=== PATIENT | female | born 1940 | race Caucasian/White ===

== ENCOUNTER → 2017-07-31 12:23 | Outpatient (CLI) | payer MEDICARE, OTHER, SELFPAY ==
--- NOTE | 2017-07-31 | DI.MG.S_ITS ---
UNILATERAL LEFT DIGITAL DIAGNOSTIC MAMMOGRAM POST-NEEDLE BIOPSY: 07/31/2017 CLINICAL: Post clip placement. Comparison is made to exams dated: 07/14/2017 mammogram, 06/26/2017 mammogram, and 05/01/2016 mammogram - [facility]. There are scattered fibroglandular elements in the left breast. There is a biopsy clip in the left breast at 4 o'clock next to the mass with calcifications. IMPRESSION: POST PROCEDURE MAMMOGRAM FOR MARKER PLACEMENT Biopsy clip in expected position. This exam was interpreted at Station ID: [id number]. NOTE: For mammograms, a report in lay terms will be sent to the patient. Approximately 15% of breast malignancies will not be visualized mammographically. In the management of a palpable breast mass, a negative mammogram must not discourage biopsy of a clinically suspicious lesion. Electronically Signed By: Crys David M.D. fx/:07/31/2017 13:46:14 copy to: Brenden OLIVEIRA BI-RADS Category Post-procedure mammogram for marker placement
--- NOTE | 2017-07-31 | PATH_ITS ---
[facility] Accession Number: [id number] . 01 Material submitted: . LT BREAST 4:00 3CM . 02 Diagnosis: Breast Mass at 4 o'clock, 3 cm From Nipple, Left, Needle Core Biopsy Not Otherwise Specified: Fragments of papillary lesion, consistent with benign intraductal papilloma. No atypia or invasive tumor identified. Please see comment. . MRV/08/05/2017 . 02 Comment: Surgical extirpation is recommended for complete evaluation. . 02 Electronically signed: . Brenda Garcias MD, Pathologist NPI- [id number] . 01 Gross description: . Received in formalin, labeled BX breast, are multiple fragments of fibrofatty tissue (2.0 x 1.5 x 0.3 cm in aggregate). Entirely submitted in cassette A1. NOTE: Approximate total fixation time in formalin - 55 hours 30 minutes calculated using a collection date of 07/31/2017 with no collection time given. ([id number]) /FRR . 02 Pathologist provided ICD-10: N64.9 . 02 CPT . 476448 Performed at: 01 [facility] [address], [place], [place] [id number] MD Ricco Barraza MD Phone: [phone] Performed at: 02 [facility] [address] [place], [place] [id number] MD Robert Castro MD Phone: [phone]
--- NOTE | 2017-07-31 12:25 | DI.US.S_ITS ---
ULTRASOUND GUIDED BIOPSY LEFT BREAST USING VACUUM DEVICE WITH POST MAMMOGRAPHIC AND ULTRASOUND IMAGIN07/31/2017 CLINICAL: Left breast mass. PATIENT CONSENT: Risks (minor bleeding, infection, vasovagal reaction and repeat procedure), benefits and alternatives were explained to the patient and written informed consent was obtained. Correlation is made to exams dated: 07/14/2017 ultrasound, 07/14/2017 mammogram, 06/26/2017 mammogram, and 05/01/2016 mammogram - [facility]. An ultrasound guided biopsy using real-time ultrasound was performed for the oval mass located in the left breast at 4 o'clock middle depth. This was described on the previous ultrasound report. The skin was prepped in the usual manner. Local anesthetic was administered to the access site. The abnormality was approached from the lateral aspect. A 13 gauge biopsy needle was placed adjacent to the abnormality under ultrasound guidance. Once the needle was documented to be in the correct location, five specimens were obtained using the Mammotome biopsy system. Post procedure mammographic and ultrasound imaging demonstrates the clip at the targeted area. The specimens were sent to the laboratory for pathological analysis. IMPRESSION: ULTRASOUND GUIDED BIOPSY BENIGN Ultrasound guided biopsy of the mass in the left breast middle depth was successful. Pathology demonstrates a papilloma. Although this finding is concordant with the ultrasound finding there are calcifications seen mammographically extend well beyond the area of US guided biopsy. Recommend surgical excision of this area. Findings discussed with JOYCELYN Singh from the office of Dr. Ramirez via telephone ([phone]) at 10:50 on 08/08/2017. This exam was interpreted at Station ID: [id number]. Crys Villalta M.D. fx,cj/:08/08/2017 11:00:05 copy to: Brenden Wallace
== END ==
PROVIDERS: Family Provider Family Medicine; PCP Family Medicine; Visit Provider Obstetrics & Gynecology
DX: R92.8 Other abnormal and inconclusive findings on diagnostic imaging of breast (principal); N63.20 Unspecified lump in the left breast, unspecified quadrant
CPT/HCPCS: 19083; 77065; 88305

== ENCOUNTER 2017-09-25 07:27 | Day surgery (SDC) | payer MEDICARE, OTHER, SELFPAY ==
[2017-09-22 14:48] VITALS: BMI 32.3
[2017-09-25] VITALS (8 sets, daily range): BP systolic 134–159; BP diastolic 76–93; PULSE 63–76; RESP 10–16; TEMP 36–36.3; O2SAT 95–98; BMI 33.1
--- NOTE | 2017-09-25 | DI.MG.S_ITS ---
PROCEDURE: MM SURGICAL SPECIMAN LT INDICATIONS: LEFT BREAST PAPILLOMA TECHNIQUE: Intraoperative film of the breast surgical specimen acquired. COMPARISON: [facility], , MM DIAGNOSTIC MAMMO UNILAT LT2D, 09/25/2017, 9:13. FINDINGS: Tip of the localizing wire is present. Also visualized within the specimen is the nearby biopsy clip and the mass being targeted. IMPRESSION: The targeted lesion is within the surgical specimen. Dictated by: Crys David M.D. on 09/25/2017 at 11:58 Approved by: Crys David M.D. on 09/25/2017 at 12:00
--- NOTE | 2017-09-25 | DI.MG.S_ITS ---
UNILATERAL LEFT DIGITAL DIAGNOSTIC MAMMOGRAM: 09/25/2017 CLINICAL: Left breast papiloma. Post wire placement. Comparison is made to exams dated: 07/31/2017 mammogram, 07/14/2017 mammogram, and 06/26/2017 mammogram - [facility]. There are scattered fibroglandular elements in the left breast. There is a localization wire next to the mass and biopsy marker in the left breast at 4 o'clock middle depth. IMPRESSION: The localization wire is next to the targeted mass and biopsy marker. This exam was interpreted at Station ID: [id number]. NOTE: For mammograms, a report in lay terms will be sent to the patient. Approximately 15% of breast malignancies will not be visualized mammographically. In the management of a palpable breast mass, a negative mammogram must not discourage biopsy of a clinically suspicious lesion. Electronically Signed By: Crys David M.D. fx/:09/26/2017 08:13:37 Entry: - 09/26/2017 08:13:37 copy to: Brenden OLIVEIRA BI-RADS Category n/a
--- NOTE | 2017-09-25 | PATH_ITS ---
[facility] Accession Number: [id number] . 01 Material submitted: . PART A: LEFT BREAST PART B: LEFT BREAST . 02 Diagnosis: A. 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 Tumor size measures up to 1 cm in maximum dimension. Excisional margins widely free of neoplasm. . B. Additional Left Brest Tissue: Benign breast tissue, negative for evidence of neoplasm. MRV/09/29/2017 . 02 Electronically signed: . Esteban Caruso MD, Pathologist NPI- [id number] . 01 Gross description: . (A) Received in formalin , labeled left breast, long stitch medial, short anterior, is a piece of breast tissue (1.5 cm AP, 2.7 cm SI, 5.0 cm ML) with no overlying skin. The specimen is oriented with two black sutures (long-medial, short-anterior). A localization wire enters the central anterolateral aspect and exits the central posterior aspect. The specimen is serially sectioned ML into 14 slices with the medial and lateral resection margins as slices #1 and 14, respectively. The breast tissue is fatty and contains a wilde-yellow, firm, irregular mass (2.8 x 0.8 x 0.6 cm) within slices #6-#13. The mass is 0.4 cm from the anterior, 0.2 cm from the posterior, 1.1 cm from the superior, 0.4 cm from the inferior, 1.7 cm from the medial, and 0.5 cm from the lateral resection margins. Slices #2-#5 are focally fibrous. No biopsy marker is identified. Ink code: Purple - anterior; yellow - posterior; black - superior; orange - inferior; green - medial; blue - lateral. Section code: (A1) medial resection margin, perpendicularly sectioned; (A2) slice #2; (A3) slice #3; (A4) slice #4; (A5) slice #5, tissue adjacent to mass; (A6) slice #6; (A7) slice #7; (A8) slice #8; (A9) slice #9; (A10) slice #10; (A11) slice #11; (A12) slice #12; (A13) slice #13; (A14) slice lateral resection margin, tissue adjacent to mass, perpendicularly sectioned. Specimen entirely submitted. (B) Received in formalin, labeled left breast medial wall, stitch specimen side, is a piece of breast tissue (5.5 x 2.5 x 0.6 cm) with no overlying skin. A two-tailed black suture indicates the specimen side. No localization wire is present. The breast tissue is fibrofatty with no nodules, masses, lesions, or scirrhous areas identified. The side with the suture is inked black and the opposite side is inked orange. Serially sectioned and entirely submitted in cassettes B1-B4. . Note: Approximate total fixation time in formalin for both specimens - 67 hours and 30 minutes calculated using a collection date of 09/25/2017 with no collection time given. ([id number]) /FRR . 02 Pathologist provided ICD-10: D24.2 . 02 CPT . 109792, 431877 Performed at: 01 [facility] [address] [id number] MD Ricco Barraza MD Phone: [phone] Performed at: 02 [facility] [address] [place], [place] [id number] MD Robert Castro MD Phone: [phone]
--- NOTE | 2017-09-25 | DI.US.S_ITS ---
ULTRASOUND GUIDED NEEDLE LOCALIZATION LEFT BREAST: 09/25/2017 CLINICAL: Pre-op wire localization. Correlation is made to exams dated: 07/31/2017 mammogram, 07/31/2017 ultrasound biopsy, 07/14/2017 ultrasound, 07/14/2017 mammogram, 06/26/2017 mammogram, and 05/01/2016 mammogram - [facility]. A needle localization using ultrasound guidance was performed for the mass located in the left breast at 4 o'clock middle depth. The skin was prepped in the usual manner. Local anesthetic was administered to the access site. The localization needle was approached from the lateral aspect. A wire was inserted through the needle into the targeted area under ultrasound guidance. Post placement imaging demonstrates the localization wire passes the targeted area. IMPRESSION: NEEDLE LOCALIZATION Wire localization for the mass in the left breast at 4 o'clock was successful. This exam was interpreted at Station ID: [id number]. Crys David M.D. fx/:09/25/2017 11:03:43 copy to: Brenden Wallace
--- NOTE | 2017-09-25 09:26 | SUR.PREOP ---
PT RETURNED FROM RADIOLOGY AT 0920. PT IN STABLE CONDITION. PT TRANSFERED SELF BACK INTO STRETCHER WITHOUT ANY DIFFICULTLY. PT BROUGHT BACK TO BEDSIDE AND PT CONVERSING WITH SPOUSE. BED IN LOWEST POSITION AND CALL LIGHT GIVEN TO PT.
[2017-09-25] MEDS: LACTATED RINGERS 1,000 ML 100 ML IV (09:28)
--- NOTE | 2017-09-25 11:01 | PM.PREOP ---
Pre-operative Note Interval Note Pre-op Check: Yes History & Physical Reviewed by Physician and Yes Exam Performed Changes: Yes H&P completed within 30 days and has changed as indicated here:: Needle 0 perform. The tip is well beyond the specimen area.
[2017-09-25] MEDS: CEFAZOLIN 2 GM/100 ML FROZ.PIGGY IV (11:06)
--- NOTE | 2017-09-25 11:31 | SUR.OPER ---
Supine on padded OR bed, head on gel donut on foam block, arms secured on padded arm boards at <90 degrees abduction, legs uncrossed, safety belt at thigh, tape over blanket over lower legs.
[2017-09-25] MEDS: BUPIVACAINE 0.5% (PF) VIAL 30 ML INJ (11:41)
--- NOTE | 2017-09-25 12:24 | P.OP_ITS ---
Operative Date/Time/Diagnoses Date of procedure: 09/25/17 Time of procedure: 12:19 Pre-op diagnosis: Mass in left breast Post-op diagnosis: same Procedure & Clinicians Procedure: Needle localization and lumpectomy Same procedure as scheduled: Yes Indications: Post biopsy he consistent with a papilloma. Recommendation made for removal of the remaining mass to ensure no other lesion is present. Surgeon: Silvano Wang Click Yes if Unassisted: Yes Anesthesia Type: General Operative Notes Findings: Specimen contained the mass and the clip Closure Type: primary Specimen(s): other (Needle localization and an additional medial wall from anterior to posterior) Implants & Drains: None Estimated Blood Loss (mL): 10 Blood products transfused: none Procedure in detail: Patient was placed supine on the operating room table underwent general LMA anesthesia. She was prepped and draped in the usual fashion. Care was taken not to move wire. Wire was really in suboptimal location. I made an incision between where the mass should be based on mammography and the needle insertion site. Was carried into the subcu in the needle was delivered into the wound. Unfortunately because of the curve in the needle and the fact that it went well beyond the lesion I principally used palpation as a guide with visualization to make sure was no air near the needle to remove the tissue. I did not attempt to go to the end of the needle because the needle tip was way beyond this targeted specimen. I excised the lesion and submitted it for pathology. The clip and the mass were in the specimen. I took out an additional piece of tissue in the medial wall because if there was any place I was close it was there. This specimen included portion of the anterior wall down to the posterior wall encompassing the medial aspect. Both specimens were marked with sutures for orientation. Local anesthetic was infiltrated into the wall of the biopsy site. The cavity was closed with interrupted 3 0 Polysorb. The skin was closed running for Polysorb subcuticular stitch and Steri -Strips. Dressing was applied the patient was awakened and extubated and taken to recovery room good condition. Condition: stable Disposition: PACU Plan for aftercare: Follow-up in office
== END 2017-09-25 13:34 | disposition home or self-care (01) ==
PROVIDERS: PCP Family Medicine; Visit Provider Specialist
PROC: (CPT 19301; principal; 2017-09-25 10:45)
DX: D24.2 Benign neoplasm of left breast (principal); I10 Essential (primary) hypertension
CPT/HCPCS: 19301; 19285; 76098; 77065; J0690; J1100; J2405; J2704; J3010

== ENCOUNTER 2017-11-18 06:46 | Day surgery (SDC) | payer MEDICARE, OTHER, SELFPAY ==
--- NOTE | 2017-11-18 | PATH_ITS ---
[facility] Accession Number: [id number] . 01 Material submitted: . PART A: ASCENDING COLON POLYP PART B: COLON POLYP AT 30CM . 02 Diagnosis: A. Biopsy Ascending Colon Polyp: Tubular adenoma involving single biopsy fragment. . B. Biopsy Colon Polyp at 30 cm: Polypoid-shaped fragment of normal appearing colon mucosa consistent with mucosal polypoid redundancy. Negative for evidence of neoplasm and/or hyperplasia on multiple sections. MRV/11/19/2017 . 02 Electronically signed: . Esteban Caruso MD, Pathologist NPI- [id number] . 01 Gross description: . Received two formalin-filled containers, both labeled with the patient's name: . A. In a container labeled descending colon polyp, are two 0.1-0.4 cm portions of tissue, entirely submitted in cassette A. B. In a container labeled colon polyp at 30 cm, the specimen consists of a 0.2 cm portion of tissue, entirely submitted in cassette B. ([id number]) /FRR . 02 Pathologist provided ICD-10: D12.2 . 02 CPT . 760220, 171183 Specimen Comment: A duplicate report has been generated due to demographic updates. Performed at: 01 [facility] [address] [facility], [place], [place] [id number] MD Ricco Barraza MD Phone: [phone] Performed at: 02 [facility] [address] [place], [place] [id number] MD Robert Castro MD Phone: [phone]
[2017-11-18 07:10] VITALS: BP 135/88; PULSE 75; RESP 18; TEMP 36.2; O2SAT 97; BMI 32.9
--- NOTE | 2017-11-18 08:09 | PM.HP.1 ---
History of Present Illness Date Patient Seen: 11/18/17 Time Patient Seen: 08:09 Chief complaint: [id number] SCREENING COLONOSCOPY Narrative: Patient is here for screening colonoscopy. She was seen in the office in late September. Patient History Medical History Colorectal polyp detected on colonoscopy (Acute) Environmental allergies (Acute) Papilloma of breast (Acute) Asthma (Chronic) Hayfever (Chronic) Hyperlipidemia (Chronic) Hypertension (Chronic) Migraines (Chronic) Pancreatitis (Resolved) Surgical History History of cholecystectomy (Acute) Hx of breast biopsy (Acute) History of tonsillectomy (Resolved 1961) History of total hip replacement (Resolved 2000) History of total hip replacement (Resolved 2004) Family & Social History Family History: Reviewed 11/18/17 by Silvano Wang MD Social History: household members spouse Tobacco & Substance use: Smoking Status Never smoker Meds Home Medications Medication Instructions Recorded Confirmed Type ascorbic acid (vitamin C) 500 mg 500 mg PO DAILY cap 09/15/17 11/18/17 History capsule Allergies Allergy/AdvReac Type Severity Reaction Status Date / Time adhesive [ADHESIVE] Allergy Mild Rash Verified 09/25/17 08:01 bacitracin [BACITRACIN] Allergy Mild itchy red Verified 09/25/17 08:01 rash latex [LATEX] Allergy Mild RASH Verified 09/25/17 08:01 polymyxin B Allergy Mild itchy red Verified 09/25/17 08:01 [From NEOSPORIN rash ([id number])] neomycin [NEOMYCIN] Allergy Unknown CONTACT Verified 09/25/17 08:01 DERMATITIS hydrocodone [HYDROCODONE] AdvReac Unknown HALLUCINATI Verified 09/25/17 08:01 ON narcotics AdvReac Mild Sensitive, Uncoded 09/25/17 08:01 twilight, dreams about sounds she hears Review of Systems Review of Systems All systems reviewed & are unremarkable except as noted in HPI and below Exam Vital Signs (past 8 hours): - 11/18/17 07:10 Temperature 97.2 F L Pulse Rate 75 Respiratory Rate 18 Blood Pressure 135/88 Pulse Oximetry 97 Oxygen Delivery Method Room Air Narrative Exam Narrative: Operative no apparent distress. Lungs are clear to auscultation. No rales rhonchi. Heart regular rate and rhythm without murmur gallop. Abdomen is soft nontender without mass. The patient is alert and oriented x3. Assessment & Plan Plan: Assessment/Plan Narrative: Here for screening colonoscopy. I have discussed the procedure and the rationale with the patient including risks of bleeding, perforation which would necessitate a major operation, failure to find remove all lesions and the potential to tattoo. They appeared to understand and wished to proceed.
--- NOTE | 2017-11-18 08:10 | PM.PREOP ---
Pre-operative Note Interval Note Pre-op Check: Yes History & Physical exam performed today by Physician Changes: No ASA Class (for procedural sedation): I
[2017-11-18] MEDS: MIDAZOLAM 5 MG/5 ML VIAL IV (08:37)
[2017-11-18] MEDS: fentaNYL 250 MCG/5 ML INJ IV (08:38)
[2017-11-18 08:45] VITALS: BP 118/72; PULSE 58; RESP 17; TEMP 36.4; O2SAT 99
--- NOTE | 2017-11-18 08:50 | PM.OP.ENDO ---
Operative Date/Time/Diagnoses Date of procedure: 11/18/17 Time of procedure: 08:50 Pre-op diagnosis: Screening exam. Last exam was 6 years ago. History of polyps. Post-op diagnosis: same (Internal and external hemorrhoids. Sigmoid diverticulosis. Two small polyps.) Procedure & Clinicians Study performed: Colonoscopy with cold biopsy Same procedure as scheduled: Yes Indications: Screening Surgeon: Silvano Wang Procedure Notes SCOAP/Timeout: Performed Procedure in detail: The patient was placed in the left lateral decubitus position and underwent IV sedation directed by the surgeon consisting of fentanyl and Versed. Digital exam was remarkable for large external hemorrhoidal tags. The scope was inserted and advanced through the rectum into the sigmoid, descending, transverse, and ascending colon.[The sigmoid was noted to have fairly large in numerous diverticuli.]. The cecum was reached identified by the ileocecal valve and the appendiceal opening. The ileocecal valve was[successfully] cannulated. The terminal ileum was normal in appearance. The scope was gradually brought out. In the ascending colon there was a small polyp which was biopsied to complete removal. Another small Polyp was found at[30 cm from the anal verge and was removed]. The scope ultimately was retroflexed in the rectum. The appearance was[notable for internal hemorrhoids without ulceration]. The scope was removed and the patient tolerated the procedure well Scope withdrawal time: 10 min Sedation minutes: 25 Findings: diverticulosis (Sigmoid), internal hemorrhoids (With external hemorrhoids) and polyp (Ascending colon and 30 cm from the anal verge) Specimen(s): other (Polyps) Recommendations: Colonscopy in 5 years Follow up: as needed Disposition: PACU
[2017-11-18 08:51] VITALS: BP 131/79; PULSE 63; RESP 16; O2SAT 98
[2017-11-18] MEDS: SODIUM CHLORIDE 0.9% 1,000 ML 200 ML IV (08:55)
[2017-11-18 08:56] VITALS: BP 122/69; PULSE 62; RESP 16; O2SAT 96
[2017-11-18 09:18] VITALS: BP 127/76; PULSE 56; RESP 16; O2SAT 94
== END 2017-11-18 09:20 | disposition home or self-care (01) ==
PROVIDERS: PCP Family Medicine; Visit Provider Specialist
PROC: 0DJD8ZZ Inspection of Lower Intestinal Tract, Via Natural or Artificial Opening Endoscopic (ICD-10-PCS; CPT 45378; principal; 2017-11-18 07:45)
DX: Z86.010 Personal history of colon polyps (principal); E78.5 Hyperlipidemia, unspecified; I10 Essential (primary) hypertension; J45.909 Unspecified asthma, uncomplicated; K57.30 Diverticulosis of large intestine without perforation or abscess without bleeding; K64.8 Other hemorrhoids; K64.4 Residual hemorrhoidal skin tags; D12.2 Benign neoplasm of ascending colon; D12.5 Benign neoplasm of sigmoid colon
CPT/HCPCS: 45380; 88305; 99152; 99153; J2250; J3010

== ENCOUNTER → 2018-06-29 13:38 | Outpatient (CLI) | payer MEDICARE, OTHER, SELFPAY ==
--- NOTE | 2018-06-29 | DI.MG.S_ITS ---
BILATERAL DIGITAL SCREENING MAMMOGRAM 3D/2D WITH CAD: 06/29/2018 CLINICAL: Routine screening. Comparison is made to exams dated: 06/26/2017 mammogram, 09/29/2014 mammogram, and 02/22/2013 mammogram - [facility]. There are scattered fibroglandular elements in both breasts. Current study was also evaluated with a Computer Aided Detection (CAD) system. There are benign post operative findings in the left breast. No significant masses, calcifications, or other findings are seen in either breast. There has been no significant interval change. IMPRESSION: There is no mammographic evidence of malignancy. A 1 year screening mammogram is recommended. This exam was interpreted at Station ID: [id number]. NOTE: For mammograms, a report in lay terms will be sent to the patient. Approximately 15% of breast malignancies will not be visualized mammographically. In the management of a palpable breast mass, a negative mammogram must not discourage biopsy of a clinically suspicious lesion. Electronically Signed By: Sarah vivas/leeanne:06/29/2018 15:11:48 copy to: Brenden Wallace letter sent: Normal Exam ACR BI-RADS Category 2: Benign Finding(s) 3342F
== END ==
PROVIDERS: PCP Student in an Organized Health Care Education/Training Program; Visit Provider Obstetrics & Gynecology
DX: Z12.31 Encounter for screening mammogram for malignant neoplasm of breast (principal)
CPT/HCPCS: 77063; 77067

== ENCOUNTER → 2019-01-20 13:45 | Outpatient (CLI) | payer MEDICARE, OTHER, SELFPAY ==
[2019-01-20 15:16] LABS: Alanine Aminotransferase 19 IU/L (<35); Albumin 4.5 g/dL (3.5-5.0); Albumin Globulin Ratio 1.7 (1.0-2.8); Alkaline Phosphatase 62 U/L (38-126); Aspartate Aminotransferase 25 IU/L (14-36); BUN Creatinine Ratio 23.3 (6-22); Bilirubin Total 0.5 mg/dL (0.2-1.3); Blood Urea Nitrogen 21 mg/dL (7-17); Calcium 9.5 mg/dL (8.4-10.2); Carbon Dioxide 27 mmol/L (22-32); Chloride 103 mmol/L (98-107); Estimated Glomerular Filt Rate > 60.0 mL/min (>60); Globulin 2.7 g/dL (1.7-4.1); Glucose 101 mg/dL (80-110); HEMOLYSIS < 15 (0-50); Potassium 4.2 mmol/L (3.4-5.1); Sodium 142 mmol/L (137-145); Total Protein 7.2 g/dL (6.3-8.2)
[2019-01-20 15:35] LABS: B Type Natriuretic Peptide < 100 (<100)
[2019-01-20 15:36] LABS: Vitamin D 25 Hydroxy (D3) 38.8 ng/mL (30.0-100.0)
== END ==
PROVIDERS: PCP Student in an Organized Health Care Education/Training Program; Visit Provider Student in an Organized Health Care Education/Training Program
DX: E55.9 Vitamin D deficiency, unspecified (principal); I10 Essential (primary) hypertension; K76.89 Other specified diseases of liver; R60.9 Edema, unspecified; I50.21 Acute systolic (congestive) heart failure
CPT/HCPCS: 36415; 80053; 82306; 83880

== ENCOUNTER → 2019-01-21 13:23 | Outpatient (CLI) | payer MEDICARE, OTHER, SELFPAY | PROVIDERS: PCP Student in an Organized Health Care Education/Training Program; Visit Provider Student in an Organized Health Care Education/Training Program | DX: Z13.820 Encounter for screening for osteoporosis (principal); Z78.0 Asymptomatic menopausal state; M85.88 Other specified disorders of bone density and structure, other site | CPT/HCPCS: 77080; 77081 ==

== ENCOUNTER → 2019-03-11 17:31 | Outpatient (CLI) | payer MEDICARE, OTHER, SELFPAY ==
--- NOTE | 2019-03-11 17:37 | DI.MRI.S_ITS ---
PROCEDURE: MR ABDOME PELVIS WWO CON INDICATIONS: evaluate pancreatic and ovarian masses TECHNIQUE: Coronal HASTE, axial 2D FLASH in- and [id number]; axial breath-hold T2 FSE; dynamic axial VIBE during IV gadolinium administration; postgadolinium coronal VIBE or 2D FLASH with fat saturation from the hepatic dome to the iliac crests. COMPARISON: Outside Facility, RG, CT ABDOMEN/PELVIS WITH CONTRAST, 03/04/2019, 11:11. This dictation was delayed, awaiting outside prior images, which have now arrived. FINDINGS: Image quality: Excellent. Lung bases: No significant abnormalities can be seen at the lung bases. Heart size is within normal limits. No significant hiatal hernia. Solid organs: Numerous prominent simple appearing, nonenhancing cysts are seen of the left kidney, including a 6.1 cm cyst inferiorly and a 5 cm cyst laterally. No definite cysts are seen of the right kidney. There is no hydronephrosis. There is a nonenhancing ovoid cyst along the lateral aspect of the liver that measures 2.5 cm craniocaudally. No enhancement seen of this lesion. The spleen is unremarkable. No adrenal nodules are seen. At the tail of the pancreas, there is a lesion seen that measures 2.3 x 1.4 cm, as on series 5 image 57. This lesion demonstrates heterogeneous increased signal on T2-weighted imaging. This lesion demonstrates mild internal enhancement. The pancreas otherwise demonstrate an unremarkable appearance. No dilatation of the pancreatic duct can be seen. The gallbladder has been removed. No biliary dilatation is seen. Nodes and vessels: The IVC and aorta demonstrate normal caliber. No enlarged retroperitoneal lymph nodes are seen. Bowel and peritoneum: Diverticulosis is seen, without findings of active diverticulitis. No dilated loops of small bowel are seen. No free fluid can be seen. Pelvis: There is visualization of a right ovarian cystic lesion seen that measures up to 3 cm. No complicating features can be seen. No additional adnexal masses are seen. The uterus demonstrates an atrophic appearance and is considered to be normal for age. Bones and soft tissues: Age-appropriate bony degenerative changes are seen. Mild levoconvex scoliotic curvature is noted. Bilateral hip arthroplasty hardware is seen, with associated susceptibility artifact. IMPRESSION: At the tail of pancreas, there is a 2.3 cm lesion seen that demonstrates mild internal enhancement. Differential diagnosis includes neoplasm. For further evaluation, please consider a dedicated pancreas protocol CT, performed without and with contrast. There is a 3 cm left ovarian cyst seen, without complicating features. 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 Attention should be paid to this focus on any future followup studies. Please consider a gynecological protocol referral to discuss elective removal. Numerous prominent simple appearing left renal cysts. Incidental note is made of: Cholecystectomy Levoconvex scoliotic curvature Diverticulosis is seen, without findings of active diverticulitis. Bilateral hip arthroplasty Dictated by: Alexander Cook M.D. on 03/12/2019 at 16:33 Approved by: Alexander Cook M.D. on 03/12/2019 at 16:44
== END ==
PROVIDERS: Family Provider Student in an Organized Health Care Education/Training Program; PCP Student in an Organized Health Care Education/Training Program; Visit Provider Student in an Organized Health Care Education/Training Program
DX: K86.89 Other specified diseases of pancreas (principal); N83.8 Other noninflammatory disorders of ovary, fallopian tube and broad ligament; N28.1 Cyst of kidney, acquired; K76.89 Other specified diseases of liver; K57.90 Diverticulosis of intestine, part unspecified, without perforation or abscess without bleeding; M41.9 Scoliosis, unspecified; Z90.49 Acquired absence of other specified parts of digestive tract; Z96.643 Presence of artificial hip joint, bilateral
CPT/HCPCS: 72197; A9579

== ENCOUNTER → 2019-03-31 12:08 | Outpatient (CLI) | payer MEDICARE, OTHER, SELFPAY ==
[2019-03-31 14:04] LABS: Cancer Antigen 125 11 U/mL (0-35); Carcinoembryonic Antigen 0.7 ng/mL (0.1-3.0)
[2019-04-01 11:31] LABS: Cancer (Carbohydrate) Ag 19-9 5 U/mL (< 34)
[2019-04-03 15:29] LABS: Human HE4 Antigen 66 pmol/L
== END ==
PROVIDERS: Obstetrics & Gynecology; PCP Student in an Organized Health Care Education/Training Program; Visit Provider Student in an Organized Health Care Education/Training Program
DX: N94.89 Other specified conditions associated with female genital organs and menstrual cycle (principal); R19.09 Other intra-abdominal and pelvic swelling, mass and lump; D37.8 Neoplasm of uncertain behavior of other specified digestive organs
CPT/HCPCS: 36415; 82378; 86301; 86304; 86305

== ENCOUNTER → 2019-04-09 10:51 | Outpatient (CLI) | payer MEDICARE, OTHER, SELFPAY ==
[2019-04-09 13:25] LABS: Lipase 192 U/L (23-300)
== END ==
PROVIDERS: PCP Student in an Organized Health Care Education/Training Program; Visit Provider Physician Assistant
DX: K85.90 Acute pancreatitis without necrosis or infection, unspecified (principal)
CPT/HCPCS: 36415; 83690

== ENCOUNTER → 2019-05-31 10:26 | Outpatient (CLI) | payer MEDICARE, OTHER, SELFPAY ==
--- NOTE | 2019-05-31 | DI.US.S_ITS ---
PROCEDURE: US PELVIC COMPLETE INDICATIONS: RIGHT OVARIAN CYST TECHNIQUE: Real-time scanning was performed of the pelvic organs, with image documentation. Additional endovaginal scanning was necessary due to incomplete visualization of the adnexal and endometrial structures by transabdominal scanning. COMPARISON: [facility], US, US PELVIC COMPLETE, 03/31/2019, 11:55. Outside Facility, RG, CT ABDOMEN/PELVIS WITH CONTRAST, 03/04/2019, 11:11. FINDINGS: Transabdominal scanning: Limited scanning through the kidneys shows no hydronephrosis. Multicystic left kidney redemonstrated similar to prior CT scan with largest cyst measuring up to 5.3 cm. No pathologic free abdominal or pelvic fluid. Endovaginal scanning: Uterus: Uterus is normal in size at 4.9 x 2.2 x 4.2 cm. The endometrium measures 10.2 mm in combined thickness and is diffusely heterogeneous and hyperemic. Ovaries: Simple right ovarian cyst redemonstrated measuring 3.4 x 2.2 x 2.5 cm. Left ovary is normal measuring 1.4 x 1.1 x 0.9 cm. IMPRESSION: 1. Abnormal appearance of the endometrial complex which is thickened, heterogeneous and hyperemic. Endometrial biopsy is recommended as underlying neoplastic process including endometrial carcinoma cannot be excluded. 2. Simple 3.4 cm right ovarian cyst. Annual sonographic surveillance recommended. 3. Multicystic left kidney redemonstrated. Dictated by: Baudilio MALAVE Interpreted: Genny Morel MD on 05/31/2019 at 12:59 Approved by: Genny Morel M.D. on 06/02/2019 at 14:25
== END ==
PROVIDERS: PCP Student in an Organized Health Care Education/Training Program; Referring Provider Obstetrics & Gynecology Gynecologic Oncology; Visit Provider Obstetrics & Gynecology Gynecologic Oncology
DX: N83.201 Unspecified ovarian cyst, right side (principal); R93.89 Abnormal findings on diagnostic imaging of other specified body structures; N28.1 Cyst of kidney, acquired
CPT/HCPCS: 76830; 76856

== ENCOUNTER → 2019-08-16 08:54 | Outpatient (CLI) | payer MEDICARE, OTHER, SELFPAY ==
[2019-08-16 10:18] LABS: Alanine Aminotransferase 15 IU/L (<35); Albumin 4.1 g/dL (3.5-5.0); Albumin Globulin Ratio 1.5 (1.0-2.8); Alkaline Phosphatase 56 U/L (38-126); Aspartate Aminotransferase 21 IU/L (14-36); Bilirubin Total 0.5 mg/dL (0.2-1.3); Blood Urea Nitrogen 22 mg/dL (7-17); Calcium 9.5 mg/dL (8.4-10.2); Carbon Dioxide 26 mmol/L (22-32); Chloride 107 mmol/L (98-107); Globulin 2.8 g/dL (1.7-4.1); Glucose 100 mg/dL (80-110); HEMOLYSIS < 15 (0-50); Potassium 4.1 mmol/L (3.4-5.1); Sodium 141 mmol/L (137-145); Total Protein 6.9 g/dL (6.3-8.2)
== END ==
PROVIDERS: PCP Student in an Organized Health Care Education/Training Program; Referring Provider Internal Medicine Gastroenterology; Visit Provider Internal Medicine Gastroenterology
DX: K86.9 Disease of pancreas, unspecified (principal)
CPT/HCPCS: 36415; 80053

== ENCOUNTER → 2019-09-06 10:34 | Outpatient (CLI) | payer MEDICARE, OTHER, SELFPAY ==
--- NOTE | 2019-09-06 | DI.CT.S_ITS ---
PROCEDURE: CT ABDOMEN WO/W CON INDICATIONS: Cyst of kidney, acquired TECHNIQUE: Noncontrast 3 mm thick sections acquired through the pancreas. After the administration of intravenous contrast, 3 mm thick pancreatic-phase images acquired from the diaphragm to the iliac crests. 3 mm thick coronal and sagittal reformats were performed. For radiation dose reduction, the following was used: automated exposure control, adjustment of mA and/or kV according to patient size. COMPARISON: Outside Facility, , CT ABDOMEN/PELVIS WITH CONTRAST, 03/04/2019, 11:11. [facility], CT, ABDOMEN WITH CONTRAST, 04/10/2016, 10:14. [facility], CT, ABDOMEN/PELVIS WITH CONTRAST, 04/12/2014, 18:54. FINDINGS: Image quality: Excellent. Lung bases: Lung bases are clear. Heart size is normal. Pancreas: A 2.4 cm exophytic cystic mass is present at the distal tail of the pancreas. There are no associated calcifications. There are likely septations, but no significantly enhancing components are identified. There is questionable connection to the main pancreatic duct. The pancreatic duct is not dilated. The remainder the pancreas appears normal. Other solid organs: Liver is normal in size and enhancement. A subcapsular simple cyst is present in the right hepatic lobe. Gallbladder is surgically absent. Biliary system is non dilated. Spleen is normal in size and enhancement. No adrenal nodules. The right kidney is normal. The left kidney contains numerous partially exophytic cyst throughout the parenchyma. One of the lower pole cyst demonstrates a small focus of wall calcification. No solid masses. No hydronephrosis. Peritoneum and bowel: Increased quantity of retained solid stool in the visible loops of colon. Unenhanced bowel loops demonstrate normal wall thickness and caliber. No free fluid or air. Nodes and vessels: No retroperitoneal or mesenteric adenopathy by size criteria. Aorta and inferior vena cava are normal in size. Mild aortic calcification Bones: No suspicious bony lesions. Degenerative disc height loss at L2-3. No vertebral body compression fractures. Miscellaneous: No ventral hernias. IMPRESSION: 1. 2.4 cm septated multicystic lesion of the tail of the pancreas has slightly increased in size since April of 2016 and is most likely a residual pseudocyst. Differential diagnosis includes serous or mucinous cystadenoma, or side branch IPMN. Cystic adenocarcinoma is felt much less likely. Followup cross-sectional imaging, CT or MRI in 6 months to document stability is recommended. 2. Multiple left renal cysts. 3. Hepatic cyst. Dictated by: Beth Delgado M.D. on 09/06/2019 at 17:10 Approved by: Beth Delgado M.D. on 09/06/2019 at 17:27
[2019-09-06 11:24] LABS: Alanine Aminotransferase 16 IU/L (<35); Albumin 4.3 g/dL (3.5-5.0); Albumin Globulin Ratio 1.7 (1.0-2.8); Alkaline Phosphatase 60 U/L (38-126); Aspartate Aminotransferase 22 IU/L (14-36); BUN Creatinine Ratio 23.9 (6-22); Bilirubin Total 0.6 mg/dL (0.2-1.3); Blood Urea Nitrogen 21 mg/dL (7-17); Calcium 9.8 mg/dL (8.4-10.2); Carbon Dioxide 22 mmol/L (22-32); Chloride 109 mmol/L (98-107); Estimated Glomerular Filt Rate > 60.0 mL/min (>60); Globulin 2.6 g/dL (1.7-4.1); Glucose 104 mg/dL (80-110); HEMOLYSIS < 15 (0-50); Potassium 4.2 mmol/L (3.4-5.1); Sodium 139 mmol/L (137-145); Total Protein 6.9 g/dL (6.3-8.2)
== END ==
PROVIDERS: PCP Student in an Organized Health Care Education/Training Program; Referring Provider Internal Medicine Gastroenterology; Visit Provider Internal Medicine Gastroenterology
DX: N28.1 Cyst of kidney, acquired (principal); K86.9 Disease of pancreas, unspecified; K76.89 Other specified diseases of liver; Z90.49 Acquired absence of other specified parts of digestive tract
CPT/HCPCS: 36415; 74170; 80053; Q9967

== ENCOUNTER → 2019-10-12 17:07 | Outpatient (CLI) | payer MEDICARE, OTHER, SELFPAY ==
[2019-10-13 17:40] LABS: COVID19 Sendout Not Detected (Not Detected)
== END ==
PROVIDERS: PCP Student in an Organized Health Care Education/Training Program; Visit Provider Physician Assistant
DX: Z11.59 Encounter for screening for other viral diseases (principal)
CPT/HCPCS: 87635

== ENCOUNTER 2019-12-12 14:14 | Observation (INO) | payer MEDICARE, OTHER, SELFPAY ==
[2019-12-12] VITALS (11 sets, daily range): BP systolic 170–225; BP diastolic 79–105; PULSE 60–79; RESP 14–24; TEMP 36.3–36.9; O2SAT 98–99; BMI 27.4
--- NOTE | 2019-12-12 14:55 | ED_ITS ---
HPI - Neuro Symptoms/Deficit General Chief Complaint: Neuro Symptoms/Deficit Stated Complaint: Thinks TIA, Can't Remember Anything Time Seen by Provider: 12/12/19 14:31 Source: patient Mode of arrival: Ambulatory Limitations: no limitations History of Present Illness HPI Narrative: Patient is a 79-year-old female who presents with possible TIA versus migraine. She has a history of migraine headaches. Today she was looking at her computer reading an e-mail she went to go take a shower and felt like she was getting a migraine headache but it was not a typical aura that she has. She also forgot her daughter's name she could remember all of her urine children in other people's names. She then not had is a shower and went to lay down on the bed. She thought it was a migraine but could not come up with a wo rd migraine she only came up with the word microwave. Her also could not remember the word migraine. She had no weakness numbness or tingling no slurring of speech or facial droop. She now feels like she is cured and remembers the name of her daughter. Symptoms started around 2:00 p.m. and stopped at time of arrival which was 230. Location: speech On Anticoagulants: No Related Data Home Medications Medication Instructions Recorded Confirmed ascorbic acid (vitamin C) 500 mg 500 mg PO DAILY cap 09/15/17 12/12/19 capsule nknihatsfaqy-qdw-cfod-FA-vit K 1 100 ml PO QAM 09/09/18 12/12/19 fluocinolone 0.01 % topical 1 applictn TOP BID PRN 03/31/19 12/12/19 solution Ca wgcz-V0-stmgdx-inos-silicon 1 tab PO QAM 12/12/19 12/12/19 [Bone Density Calcium + D] Allergies Allergy/AdvReac Type Severity Reaction Status Date / Time adhesive [ADHESIVE] Allergy Mild Rash Verified 10/12/19 17:39 bacitracin [BACITRACIN] Allergy Mild itchy red Verified 10/12/19 17:39 rash latex [LATEX] Allergy Mild RASH Verified 10/12/19 17:39 polymyxin B Allergy Mild itchy red Verified 10/12/19 17:39 [From NEOSPORIN rash ([id number])] neomycin [NEOMYCIN] Allergy Unknown CONTACT Verified 10/12/19 17:39 DERMATITIS hydrocodone [HYDROCODONE] AdvReac Unknown HALLUCINATI Verified 10/12/19 17:39 ON narcotics AdvReac Mild Sensitive, Uncoded 10/12/19 17:39 twilight, dreams about sounds she hears Review of Systems Review of Systems Narrative: GENERAL: Denies chills, fatigue, malaise, fever, sweats, travel HEENT: Denies sinus pain, ear pain, sore throat, difficulty swallowing, neck pain RESPIRATORY: Denies dyspnea, cough, wheezing, hemoptysis, sputum. CARDIOVASCULAR: Denies chest pain, palpitations, orthopnea, edema GASTROINTESTINAL: Denies nausea, vomiting, abdominal pain, diarrhea, constipation, melena. : Denies dysuria, frequency, incontinence, hematuria, urinary retention, flank pain. MUSCULOSKELETAL: Denies weakness, joint pain, or bony pain SKIN: No rash, no erythema, no pruritus NEUROLOGIC: See HPI PSYCHIATRIC: No concerning psychosocial issues. 12 point review of systems is negative except for those stated above and HPI Patient History Medical History (Updated 12/12/19 @ 17:01 by Keely Warren DO) Allergic rhinitis (Acute) Asthma (Chronic) Colorectal polyp detected on colonoscopy (Acute) Environmental allergies (Acute) Hayfever (Chronic) Hyperlipidemia (Chronic) Hypertension (Chronic) Migraines (Chronic) Pancreatitis (Resolved) Papilloma of breast (Acute) Sinusitis (Acute) Surgical History History of cholecystectomy (Acute) History of tonsillectomy (Resolved 1961) History of total hip replacement (Resolved 2000) History of total hip replacement (Resolved 2004) Hx of breast biopsy (Acute) Family History Brother Arthritis Mother Heart problem Sister Arthritis Father Pneumonia Grandfather Pneumonia Grandmother Parkinson's disease Social History household members: spouse Smoking Status: Never smoker Smoking Status: Never smoker Exam Initial Vital Signs Initial Vital Signs: Vital Signs Temperature 98.4 F 12/12/19 14:24 Pulse Rate 79 12/12/19 14:24 Respiratory Rate 24 12/12/19 14:24 Blood Pressure 225/105 H 12/12/19 14:24 Pulse Oximetry 99 12/12/19 14:24 GENERAL: Well-appearing, well-nourished and in no acute distress. HEENT: Head atraumatic,EOMI, pupils reactive, face symmetric, moist mucous membranes CARDIOVASCULAR: Regular rate and rhythm without murmurs, rubs or gallops. RESPIRATORY: Breath sounds equal bilaterally, no wheezes rales or rhonchi. ABDOMEN: Soft, nontender. Normoactive bowel sounds all 4 quadrants. No guarding or rebound. EXTREMITIES: Normal range of motion, no clubbing or edema. Neurovascularly intact NEUROLOGICAL: Alert and oriented x4.Normal gait and speech. Cranial nerves II through XII grossly intact. Good njjyso-gq-knpl, good rwgo-br-rkmf, strength equal bilaterally, no dysarthria or aphasia, sensation in tact to soft touch bilaterally, no visual changes, no facial droop SKIN: Warm, dry, no laceration, no petechiae, no rashes or lesions. Scores NIH Stroke Scale Level of Conciousness: Alert, keenly responsive Ask month/age: Answers both questions correctly. Open/close eyes, close hand: Performs both tasks correctly Best gaze horizontal: Normal Visual mendoza: No visual loss Facial palsy: Normal symetrical movement Left arm drift: No drift for full 10 sec Right arm drift: No drift for full 10 sec Left leg drift: No drift for full 5 sec Right leg drift: No drift for full 5 sec Limb ataxia: Absent Sensory on face/arms/legs: Normal, no sensory loss Best language: No aphasia, normal Dysarthria: Normal Extinction or inattention: No abnormality Total NIH Stroke scale score: 0 Course Orders Ordered: ED Orders 12/12/19 14:53 CT head/brain wo con Stat EKG-12 Lead Stat 12/12/19 14:58 Complete Blood Count AUTO DIFF Stat Comprehensive Metabolic Panel Stat Partial Thromboplastin Time Stat Prothrombin Time INR Stat Troponin & CK Cardiac Panel Stat 12/12/19 17:11 COVID19 -ED/INPAT/OR/L&D Stat Discontinued Medications Aspirin (Aspirin Chew) 324 mg PO NOW ONE Stop: 12/12/19 14:55 Last Admin: 12/12/19 15:08 Dose: 324 mg Documented by: NA Vital Signs Vital signs: Vital Signs - 8 hr 12/12/19 14:24 12/12/19 14:31 12/12/19 15:30 Temperature 98.4 F Pulse Rate 79 70 60 Respiratory Rate 24 20 17 Blood Pressure 225/105 H 170/79 H Pulse Oximetry 99 98 99 12/12/19 15:55 12/12/19 16:00 12/12/19 16:01 Temperature Pulse Rate 61 60 62 Respiratory Rate 14 18 17 Blood Pressure 183/88 H 179/87 H Pulse Oximetry 99 99 99 12/12/19 16:30 12/12/19 16:47 12/12/19 17:00 Temperature Pulse Rate 62 63 61 Respiratory Rate 16 23 20 Blood Pressure 172/81 H 178/85 H Pulse Oximetry 99 98 99 MDM - Neuro Symptoms/Deficit Lab Data Attestation: I reviewed the patient's lab results. Result diagrams: 12/12/19 14:58 12/12/19 14:58 Labs: Lab Results 12/12/19 12/12/19 12/12/19 Range/Units 14:58 14:58 14:58 WBC 6.8 (4.5-11.0) X10^3/uL RBC 5.43 H (4.0-5.2) X10^6/uL Hgb 14.9 (12.0-16.0) g/dL Hct 44.4 (36-46) % MCV 81.8 (80-100) fL MCH 27.5 (26-34) PG MCHC 33.6 (30-36) % RDW 14.1 (11.6-14.8) % Plt Count 217 (150-400) X10^3/uL Neut % (Auto) 45.6 L (50-75) % Lymph % (Auto) 40.9 H (25-40) % [place] % (Auto) 9.4 (3-14) % Eos % (Auto) 3.3 (2-4) % Baso % (Auto) 0.8 (0-2) % Neut # (Auto) 3100 (1568-3045) /uL Lymph # (Auto) 2800 (1525-1303) /uL [place] # (Auto) 600 (0-900) /uL Eos # (Auto) 200 (0-450) /uL Baso # (Auto) 100 (0-100) /uL PT 11.2 (10.1-12.7) SECONDS INR 1.0 (0.9-1.3) APTT 37 H (26.4-36.2) SECONDS Sodium 139 (137-145) mmol/L Potassium 4.2 (3.4-5.1) mmol/L Chloride 103 (98-107) mmol/L Carbon Dioxide 30 (22-32) mmol/L BUN 15 (7-17) mg/dL Creatinine 0.98 (0.52-1.04) mg/dL Estimated GFR 55.0 L (>60) mL/min BUN/Creatinine Ratio 15.3 (6-22) Glucose 90 (80-110) mg/dL Calcium 9.7 (8.4-10.2) mg/dL Total Bilirubin 0.6 (0.2-1.3) mg/dL AST 25 (14-36) IU/L ALT 19 (<35) IU/L Alkaline Phosphatase 71 (38-126) U/L Total Creatine Kinase 30 (30-135) U/L CK-MB (CK-2) TNP CK-MB (CK-2) Rel Index TNP Troponin I < 0.012 (0.01-0.034) ng/mL Total Protein 7.4 (6.3-8.2) g/dL Albumin 4.4 (3.5-5.0) g/dL Globulin 3.0 (1.7-4.1) g/dL Albumin/Globulin Ratio 1.5 (1.0-2.8) Urine Dip Bedside Urine Glucose Negative Bedside Urine Bilirubin - Negative Bedside Urine Ketone - Negative Urine Specific [place] 1.015 Bedside Urine Occult Blood - Negative Bedside Urine pH 6.0 Bedside Urine Protein - Negative Bedside Urine Urobilinogen - Negative Bedside Urine Nitrite - Negative Bedside Urine Leukocytes - Negative Esterase Imaging Data CT scan - head: Radiologist's Impression: PROCEDURE: CT HEAD/BRAIN WO CON INDICATIONS: headache speech difficulty resolved TECHNIQUE: Noncontrast 4.5 mm thick angled axial sections acquired from the foramen magnum to the vertex, with coronal and sagittal reformats. For radiation dose reduction, the following was used: automated exposure control, adjustment of mA and/or kV according to patient size. COMPARISON: None. FINDINGS: Image quality: Excellent. CSF spaces: Basal cisterns are patent. No extra-axial fluid collections. Ventricles are normal in size and shape. Brain: No midline shift. No intracranial masses or hemorrhage. David-white matter interface is normal. Skull and face: Calvarium and visualized facial bones are intact, without suspicious lesions. Sinuses: Visualized sinuses and mastoids are clear. IMPRESSION: No acute intracranial abnormality. Dictated by: Ankit Bailon M.D. on 12/12/2019 at 14:56 ECG Data Attestation: I personally reviewed and interpreted this ECG as follows: Prior ECG tracings: available for review Interpretation: Normal sinus rhythm rate 62 p.r. interval 170 QRS [address] changes or T-wave inversions similar to previous EKGs MDM Narrative Medical decision making narrative: Patient is noted to be quite hypertensive in the ED and remains hypertensive throughout her stay. Symptoms are concerning she had some word finding issues which did resolve quickly. Possible TIA versus atypical migraine. She states her sister had the exact same thing and was diagnosed with atypical migraine. She is agreeable to stay. Dr. del castillo updated patient's symptoms test results and happily accepts Discharge Plan Departure Patient Disposition: Admitted as Observation Clinical Impression: Brain TIA Discharge Date/Time: 12/12/19 18:09 Referrals: Donell Mcmullen MD [Primary Care Provider] - Admit Date/Time: 12/12/19 17:08 Admit Provider: Stefanie Del Castillo
[2019-12-12 15:06] LABS: Add Manual Diff / Slide Review NO; Basophils Absolute Auto 100 /uL (0-100); Basophils Percent Auto 0.8 % (0-2); Eosinophils Absolute Auto 200 /uL (0-450); Eosinophils Percent Auto 3.3 % (2-4); Hematocrit 44.4 % (36-46); Hemoglobin 14.9 g/dL (12.0-16.0); Lymphocytes Absolute Auto 2800 /uL (1100-4500); Lymphocytes Percent Auto 40.9 % (25-40); Mean Corpuscular HGB Conc 33.6 % (30-36); Mean Corpuscular Hemoglobin 27.5 PG (26-34); Mean Corpuscular Volume 81.8 fL (80-100); Monocytes Absolute Auto 600 /uL (0-900); Monocytes Percent Auto 9.4 % (3-14); Neutrophils Absolute Auto 3100 /uL (1500-7000); Neutrophils Percent Auto 45.6 % (50-75); Platelet Count 217 X10^3/uL (150-400); Red Blood Cell Count 5.43 X10^6/uL (4.0-5.2); Red Cell Distribution Width 14.1 % (11.6-14.8); White Blood Cell Count 6.8 X10^3/uL (4.5-11.0)
[2019-12-12] MEDS: ASPIRIN 81 MG CHEW TAB 324 MG PO (15:08)
[2019-12-12 15:13] LABS: Prothrombin Time 11.2 SECONDS (10.1-12.7)
[2019-12-12 15:16] LABS: PTT Partial Thromboplastin Tim 37 SECONDS (26.4-36.2)
[2019-12-12 15:17] LABS: Alanine Aminotransferase 19 IU/L (<35); Albumin 4.4 g/dL (3.5-5.0); Albumin Globulin Ratio 1.5 (1.0-2.8); Alkaline Phosphatase 71 U/L (38-126); Aspartate Aminotransferase 25 IU/L (14-36); BUN Creatinine Ratio 15.3 (6-22); Bilirubin Total 0.6 mg/dL (0.2-1.3); Blood Urea Nitrogen 15 mg/dL (7-17); Calcium 9.7 mg/dL (8.4-10.2); Carbon Dioxide 30 mmol/L (22-32); Chloride 103 mmol/L (98-107); Creatine Kinase 30 U/L (30-135); Glucose 90 mg/dL (80-110); HEMOLYSIS < 15 (0-50); Potassium 4.2 mmol/L (3.4-5.1); Sodium 139 mmol/L (137-145); Total Protein 7.4 g/dL (6.3-8.2)
[2019-12-12 15:28] LABS: Troponin I < 0.012 ng/mL (0.01-0.034)
[2019-12-12 17:40] LABS: COVID19 -Nasal RAPID Negative (Negative)
[2019-12-13] VITALS: BP 154/67; PULSE 60; RESP 18; TEMP 36.7; O2SAT 96
--- NOTE | 2019-12-13 01:31 | P.HP_ITS ---
History of Present Illness History of Present Illness Date Patient Seen: 12/12/19 Time Patient Seen: 22:30 Chief complaint: Think TIA, Can't Remember Anything Narrative: Berta Perez is a very pleasant 79-year-old female with a history of migraines and no other medications or stated medical history who presented today with migraines. She has hyperlipidemia listed on her problem list but is not taking a statin. She states that she got very confused today and was having difficulties reading and remembering who her daughter and her daughter's friend's and names were. She states that her migraines are usually preceded by seen a central flickering light in the middle of her visual field, but today was actually off to both sides laterally. She has been evaluated in the past by ophthalmology and was told that she was close to eventually needing to have cataract surgery and IOL placement. She describes the visual changes is being light and shimmery. She has a multitude of other medical complaints that she has been worked up for in the past or currently being worked up for. She has chronic pancreatitis with cysts seen on imaging in her pancreas, kidneys, liver, and ovary. She is also complaining of eventually having to have a knee replacement surgery. She denies shortness of breath, chest pain, dysuria, diarrhea, constipation, she does have ganglion cysts on her fingers of her left hand as well as her right toe. She states she is under lot of stress largely due to the isolation imposed by [employer] and the current election, and issues with our current president. Temperature 98? point, blood pressure 154/67, heart rate 60, respiratory rate 18, oxygen saturation of 96% on room air, he weighs 77.1 kg with BMI of 27.4. WBC is 6.8, RBC 5.43, hemoglobin 14.9, hematocrit 44.4, platelet count 217, sodium 139, potassium 4.2, chloride 103, bicarb 30, BUN 15, creatinine 0.98, GFR is 55, glucose 90, calcium 9.7, liver enzymes are largely within normal limits, cardiac enzymes are within normal limits, COVID-19 screen is negative. Patient History Medical History Allergic rhinitis (Acute) Asthma (Chronic) Colorectal polyp detected on colonoscopy (Acute) Environmental allergies (Acute) Hayfever (Chronic) Hyperlipidemia (Chronic) Hypertension (Chronic) Migraines (Chronic) Pancreatitis (Resolved) Papilloma of breast (Acute) Sinusitis (Acute) Surgical History History of cholecystectomy (Acute) History of tonsillectomy (Resolved 1961) History of total hip replacement (Resolved 2000) History of total hip replacement (Resolved 2004) Hx of breast biopsy (Acute) Family & Social History Family History Brother Arthritis Mother Heart problem Sister Arthritis Father Pneumonia Grandfather Pneumonia Grandmother Parkinson's disease Social History: household members spouse Prior Living Arrangements House Safety & Behavioral: Feels Safe in Current Yes Environment Been Physically Hurt or No Threatened By a Person Suicidal Ideation Description None Suicide Plan Description No Plan Tobacco & Substance use: Smoking Status Never smoker alcohol intake frequency holiday/special occasion Substance Use Type does not use Meds Home Medications and Allergies Home Medications Medication Instructions Recorded Confirmed Type ascorbic acid (vitamin C) 500 mg 500 mg PO DAILY cap 09/15/17 12/12/19 History capsule qquxkcknjznj-fao-mhbv-FA-vit K 1 100 ml PO QAM 09/09/18 12/12/19 History fluocinolone 0.01 % topical 1 applictn TOP BID PRN 03/31/19 12/12/19 History solution Ca nqot-X0-ogxsma-inos-silicon 1 tab PO QAM 12/12/19 12/12/19 History [Bone Density Calcium + D] Allergies Allergy/AdvReac Type Severity Reaction Status Date / Time adhesive [ADHESIVE] Allergy Mild Rash Verified 10/12/19 17:39 bacitracin [BACITRACIN] Allergy Mild itchy red Verified 10/12/19 17:39 rash latex [LATEX] Allergy Mild RASH Verified 10/12/19 17:39 polymyxin B Allergy Mild itchy red Verified 10/12/19 17:39 [From NEOSPORIN rash ([id number])] neomycin [NEOMYCIN] Allergy Unknown CONTACT Verified 10/12/19 17:39 DERMATITIS hydrocodone [HYDROCODONE] AdvReac Unknown HALLUCINATI Verified 10/12/19 17:39 ON narcotics AdvReac Mild Sensitive, Uncoded 10/12/19 17:39 twilight, dreams about sounds she hears Review of Systems Review of Systems ROS: Yes All systems reviewed with the patient and are negative except as otherwise documented Exam Vital Signs (past 8 hours): - 12/12/19 18:15 12/13/19 00:00 Temperature 97.4 F L 98.0 F Pulse Rate 67 60 Respiratory Rate 14 18 Blood Pressure 192/96 H 154/67 H Pulse Oximetry 98 96 Oxygen Delivery Method Room Air Oxygen Flow Rate 0 Narrative Exam Narrative: Gen: Alert, oriented, well-developed 79 y.o. female, appears younger than stated age HEENT: normocephalic, atraumatic, conjunctiva clear, sclera non-icteric, oral mucosa pink and moist Neck: supple, full ROM, no JVD, trachea is midline Resp: Lungs CTA, non-labored breathing CV: RRR, no murmur or rubs Abd: soft, non-tender, normoactive BTs Skin: no lesions or rashes, dry and intact Neuro: Alert and oriented X 4 w/no focal deficits. Speech clear and coherent. Extremities: Has trace edema bilateral lower extremities, moves all 4 extremities, is ambulatory, negative Jailyn?s sign Psyche: normal mood and affect. Objective Labs Result Diagrams: 12/12/19 14:58 12/12/19 14:58 Labs: Laboratory Results - last 24 hr 12/12/19 12/12/19 12/12/19 14:58 14:58 14:58 WBC 6.8 RBC 5.43 H Hgb 14.9 Hct 44.4 MCV 81.8 MCH 27.5 MCHC 33.6 RDW 14.1 Plt Count 217 Neut % (Auto) 45.6 L Lymph % (Auto) 40.9 H [place] % (Auto) 9.4 Eos % (Auto) 3.3 Baso % (Auto) 0.8 Neut # (Auto) 3100 Lymph # (Auto) 2800 [place] # (Auto) 600 Eos # (Auto) 200 Baso # (Auto) 100 PT 11.2 INR 1.0 APTT 37 H Sodium 139 Potassium 4.2 Chloride 103 Carbon Dioxide 30 BUN 15 Creatinine 0.98 Estimated GFR 55.0 L BUN/Creatinine Ratio 15.3 Glucose 90 Calcium 9.7 Total Bilirubin 0.6 AST 25 ALT 19 Alkaline Phosphatase 71 Total Creatine Kinase 30 CK-MB (CK-2) TNP CK-MB (CK-2) Rel Index TNP Troponin I < 0.012 Total Protein 7.4 Albumin 4.4 Globulin 3.0 Albumin/Globulin Ratio 1.5 COVID-19 PCR 12/12/19 17:11 WBC RBC Hgb Hct MCV MCH MCHC RDW Plt Count Neut % (Auto) Lymph % (Auto) [place] % (Auto) Eos % (Auto) Baso % (Auto) Neut # (Auto) Lymph # (Auto) [place] # (Auto) Eos # (Auto) Baso # (Auto) PT INR APTT Sodium Potassium Chloride Carbon Dioxide BUN Creatinine Estimated GFR BUN/Creatinine Ratio Glucose Calcium Total Bilirubin AST ALT Alkaline Phosphatase Total Creatine Kinase CK-MB (CK-2) CK-MB (CK-2) Rel Index Troponin I Total Protein Albumin Globulin Albumin/Globulin Ratio COVID-19 PCR Negative Assessment & Plan Assessment & Plan narrative: Berta Perez will be admitted for a TIA workup and cardiac risk stratification. TIA vs visual aura migraines -initiate clopidogrel 75 mg p.o. daily and aspirin 81 mg p.o. daily -MR stroke scheduled for 12/12 -Complete Echo for 12/12 -PT/OT/ST evaluation -Initiate apixaban after MRI Hypertension, acute with an admission bp of 225/105, present on admission -Allow for permissive hypertension of 220/110 HR 60 to allow for brain perfusion HLD -Lipid panel, pending am labs -Atorvastatin 40 mg po at bedtime Risk stratification -Fasting lipid panel -A1c pending VTE prophylaxis: Wells risk score: 0 Enoxaparin 40 mg subQ daily Consults: none Patient is admitted under inpatient status with expected length of stay greater than 2 midnights due to severity of presenting symptoms, risk of adverse event, and complexity of treatment plan. FEN: Saline lock, heart healty diet, BMP and magnesium in the am. Dispo: probable discharge to home w/occupational health Code Status: Full code as discussed with patient, though she plans to discuss having her POLST signed by her PCP reflecting her wishes. COVID-19 COVID-19 status: Negative Result date/Date tested (Pos, Neg/Pending): 12/12/19 Scores Wells' Criteria for PE Clinical signs and symptoms of DVT: No PE is #1 Dx or equally likely: No Heart rate > 100: No Immobilization at least 3 days or surg in previous 4 weeks: No History of PE or DVT: No Hemoptysis: No Malignancy w/Treatment within 6 months or palliative: No Wells' PE Score total: 0
[2019-12-13 04:38] VITALS: BP 145/78; PULSE 66; RESP 18; TEMP 36.5; O2SAT 97
[2019-12-13 05:32] LABS: Add Manual Diff / Slide Review NO; Basophils Absolute Auto 100 /uL (0-100); Basophils Percent Auto 0.7 % (0-2); Eosinophils Absolute Auto 200 /uL (0-450); Eosinophils Percent Auto 3.2 % (2-4); Hematocrit 39.9 % (36-46); Hemoglobin 13.5 g/dL (12.0-16.0); Lymphocytes Absolute Auto 2900 /uL (1100-4500); Lymphocytes Percent Auto 40.3 % (25-40); Mean Corpuscular HGB Conc 33.9 % (30-36); Mean Corpuscular Hemoglobin 27.6 PG (26-34); Mean Corpuscular Volume 81.3 fL (80-100); Monocytes Absolute Auto 700 /uL (0-900); Monocytes Percent Auto 9.6 % (3-14); Neutrophils Absolute Auto 3300 /uL (1500-7000); Neutrophils Percent Auto 46.2 % (50-75); Platelet Count 189 X10^3/uL (150-400); Red Blood Cell Count 4.91 X10^6/uL (4.0-5.2); Red Cell Distribution Width 13.9 % (11.6-14.8); White Blood Cell Count 7.1 X10^3/uL (4.5-11.0)
[2019-12-13 05:43] LABS: BUN Creatinine Ratio 15.7 (6-22); Blood Urea Nitrogen 14 mg/dL (7-17); Carbon Dioxide 27 mmol/L (22-32); Chloride 105 mmol/L (98-107); Cholesterol 179 mg/dL (140-199); Estimated Glomerular Filt Rate > 60.0 mL/min (>60); Glucose 94 mg/dL (80-110); HDL Cholesterol 34 mg/dL (40-60); HEMOLYSIS < 15 (0-50); LDL Cholesterol Calculated 114 mg/dL (<100); Magnesium 2.1 mg/dL (1.6-2.3); Potassium 3.8 mmol/L (3.4-5.1); Sodium 139 mmol/L (137-145); Triglycerides 154 mg/dL (35-150)
[2019-12-13 08:00] VITALS: BP 151/77; PULSE 56; RESP 18; TEMP 36.4; O2SAT 97
--- NOTE | 2019-12-13 09:00 | DI.MRI.S_ITS ---
PROCEDURE: MR STROKE Pre- and post-contrast brain MRI, non-contrast brain MR angiogram, pre- and postcontrast neck MR angiogram INDICATIONS: Migraine auras, amnesia, r/o TIA TECHNIQUE: Brain: Noncontrast axial T1 spin echo, axial T2 fast spin echo, sagittal and axial FLAIR, coronal T2 fast spin echo, axial gradient echo, axial diffusion and ADC through the brain. After the administration of contrast, axial 3D VIBE of the cranial vasculature and brain. Brain MRA: Non-contrast 3-D time of flight MR angiogram, with multiple tnbhovl-cdxtfncgy-shedbyxelv (MIP) reformats performed. Neck MRA: Axial and sagittal TruFISP through the neck. Coronal dynamic MR angiogram during administration of contrast in the arterial and venous phases, with 3-dimenstional qhxapbg-wowewgoav-klxkvuxafy (MIP) reformats constructed from subtraction images. COMPARISON: [facility], CT, CT HEAD/BRAIN WO CON, 12/12/2019, 14:55. FINDINGS: Image quality: Excellent. BRAIN: CSF spaces: Ventricles are normal in size and shape. Basal cisterns are patent. No extra-axial fluid collections. Brain: No intracranial bleeds or mass effects. David-white matter interface is normal. Diffusion weighted images show no acute ischemic insults. Brainstem appears normal. Normal intravascular flow voids are present. No abnormal intracranial enhancement. Relatively prominent perivascular spaces are noted. Skull and face: Calvarial marrow signal is normal. Orbits appear normal. Sinuses: Sinuses and mastoids are clear. BRAIN MR ANGIOGRAM: Anterior circulation: Intracranial internal carotid arteries are normal in size and enhancement. There is a diminutive left A1 segment, with a corresponding robust right A1 segment. This is considered to be a normal developmental variant of the [place], of typically no clinical consequence. The flow within the paired anterior cerebral arteries is otherwise normal and symmetric. The flow within the middle cerebral arteries is normal and symmetric. The anterior communicating artery is seen. No stenoses, occlusions, or aneurysms. Posterior circulation: The visualized portions of the vertebral arteries demonstrate normal caliber, and join to form a normal appearing basilar artery. There is a prominent left posterior communicating artery seen, with an accompanying diminutive left P1 segment. This is attributed to a type origin of the left posterior cerebral artery, which is considered to be a normal developmental variant of typically no clinical consequence. The flow within the posterior cerebral arteries is normal and symmetric. No stenoses, occlusions, or aneurysms. NECK MR ANGIOGRAM: Carotids: Great vessels demonstrate a conventional anatomy as they arise from the aortic arch. The origins of the common carotid arteries appear patent. The calibers and courses of both common carotid arteries are normal. The bifurcation regions appear normal bilaterally. The internal carotid arteries demonstrate normal course and caliber. Posterior circulation: The origins of the vertebral arteries appear patent. More superior portions of both vertebral arteries demonstrate normal course and caliber, and join to form a normal appearing basilar artery. Miscellaneous: Subclavian arteries appear patent. Pre-contrast images through the neck show no soft tissue abnormalities. IMPRESSION: BRAIN MRI: No findings of acute or subacute infarction can be seen. Note is made of age-appropriate brain parenchymal volume loss and chronic small vessel ischemic changes. No masses or abnormal enhancement can be seen. BRAIN MR ANGIOGRAM: No significant intracranial arterial abnormality is seen. Athiko-uh-Rgrxpx developmental anomalies are incidentally noted. NECK MR ANGIOGRAM: Within the arteries of the neck, no hemodynamically significant stenosis can be seen. Dictated by: Alexander Cook M.D. on 12/13/2019 at 10:23 Approved by: Alexander Cook M.D. on 12/13/2019 at 10:29
[2019-12-13] MEDS: CLOPIDOGREL 75 MG TABLET PO (09:14)
[2019-12-13] MEDS: ENOXAPARIN 40 MG/0.4 ML SYRINGE SUBCUT (09:14)
[2019-12-13] MEDS: ASPIRIN EC 81 MG TABLET PO (09:14)
[2019-12-13] MEDS: SODIUM CHLORIDE 0.9% FLUSH 10 ML IV (09:16)
--- NOTE | 2019-12-13 10:10 | SLP.IPNOTE ---
Order received for ST consult. Nrsg reported that swallowing was fine. Saw pt briefly, introduced myself. Pt remarked that she is fine and back to baseline. She noted that she had a migraine which caused some word-finding difficulty. That has completely resolved, per pt. ST order cancelled.
--- NOTE | 2019-12-13 10:57 | PT.IIE ---
Surgical History (Last Reviewed 12/13/19 @ 01:40 by ASHTYN Thompson) History of cholecystectomy (Acute) History of tonsillectomy (Resolved 1961) History of total hip replacement (Resolved 2000) History of total hip replacement (Resolved 2004) Hx of breast biopsy (Acute) Medical History (Last Reviewed 12/13/19 @ 01:40 by ASHTYN Thompson) Allergic rhinitis (Acute) Asthma (Chronic) Colorectal polyp detected on colonoscopy (Acute) Environmental allergies (Acute) Hayfever (Chronic) Hyperlipidemia (Chronic) Hypertension (Chronic) Migraines (Chronic) Pancreatitis (Resolved) Papilloma of breast (Acute) Sinusitis (Acute) Physical Therapy Inpatient Evaluation M1 PT/OT-IP Prior Functional Status Start: 12/13/19 09:03 Freq: NEEDED Status: Active Protocol: Document 12/13/19 10:37 AW (Rec: 12/13/19 10:56 AW [id number]) Medical Review Prior Functional Status Medical History Reviewed Yes: PMH includes occular migraine ~30 years Communication WNL. No known deficits. Mobility and Gait Pt has history of bilateral ARON and complains of bilateral knee pain. Pt is independent with all mobility at baseline without assistive device and without meaningful limit. Activities of Daily Living and IADL's IND Prior Functional Level (Other details) Pt is an active oil truck driver. She states she takes no medications other than vitamins. Social History Household Members spouse Living Arrangements House Number of Floors (Floors) Two Floors Number of Stairs To Enter/Railing? Pt lives on the main level and has only one step to enter. Home Environment High Toilet,Walk in Shower, Bidet Home Equipment Front Wheel Walker,Four Wheel Walker,Quad Cane,Straight Cane Additional Social History Comment Pt lives with her spouse, Alvaro. M2 PT-IP Current Condition Start: 12/13/19 09:03 Freq: NEEDED Status: Active Protocol: Document 12/13/19 10:37 AW (Rec: 12/13/19 10:56 AW [id number]) Physical Therapy Current Condition Current Condition Evaluation Date 12/13/19 Treatment Diagnosis possible TIA Onset Date 12/12/19 M3 PT-IP Subjective Start: 12/13/19 09:03 Freq: NEEDED Status: Active Protocol: Document 12/13/19 10:37 AW (Rec: 12/13/19 10:56 AW [id number]) Subjective Physical Therapy Visit Type Type Initial Evaluation Visit Start Time 09:46 Visit Stop Time 10:10 Total Visit Minutes 24 Physical Therapy Visit Comments Patient Comments Pt is willing to participate with PT. Patient Goals Pt plans to return home at discharge. Therapy Pain Assessment Pain When Pain Assessed During Mobility Pain Present Pain Present Denied Pain M4 PT-IP Mobility and Gait Start: 12/13/19 09:03 Freq: NEEDED Status: Active Protocol: Document 12/13/19 10:37 AW (Rec: 12/13/19 10:56 AW [id number]) PT-Bed Mobility Assessment Supine to Sit Supine to Sit Independent Scooting Scooting to Edge of Bed Independent PT-Transfer Assessment Sit to and From Stand Sit to and from Stand Independent Equipment Transfer Assistive Device None Orthotic/Prosthetic Devices or Brace: No Transfers Transfer Destination Chair Transfer Technique ambulated without AD Transfer Ability Level of Assist Independent Comments Mobility Comments Pt was in the bed as PT arrived. With HOB flat, pt completed all bed mobility and transfers independently. After gait assessment, pt sat in the chair without assist. Call light and table were placed within reach. Gait Assessment Gait Gait Assistance Required: Independent Distance (Feet) 260 Assistive Devices Assistive Device None Gait Deviations General Gait Pattern Decreased Feet Clearance, Flexed Trunk Comments Gait Comments Pt ambulated without AD in the halls. 4-item DGI scored 11/ 12 with one point deducted for path deviation during horizontal head turns. Stair Climbing Assessment Evaluation Level of Assist On Stairs Independent Devices Stair Climbing Assistive Devices Right Railing Technique/Endurance Stair Climbing Direction Ascend and Descend Stair Climbing Technique Step Over Step,Step to Step Number of Steps Climbed 3 Query Text: Stair Climbing Set # Repetitions (reps) 1 Comments Stair Climbing Comments Step over step patterning up and step-to patterning down PT-Balance Assessment Sitting Balance and Reactions Static Sitting Balance Ability Normal Dynamic Sitting Balance Ability Normal Standing Balance and Reactions Static Standing Balance Ability Normal Dynamic Standing Balance Ability Good Functional Assessments Functional Tests Dynamic Gait Index 4-item DGI: 11/12 M5 PT-IP Objective Assessments Start: 12/13/19 09:03 Freq: NEEDED Status: Active Protocol: Document 12/13/19 10:37 AW (Rec: 12/13/19 10:56 AW [id number]) Orientation Orientation/Cognition Level of Alertness Alert Orientation Name,Day of Week,Place, Situation Language Function Ability No Deficits Noted Safety Awareness Understands Safety Issues Memory Description No Deficits Noted Comments Pt recalled 3/3 words after five minutes distracting conversation. Gross Range of Motion Upper Extremity ROM Assessment Within Functional Limits Lower Extremity ROM Assessment Within Functional Limits Strength Upper Extremity Strength Assessment Within Functional Limits Lower Extremity Strength Assessment Within Functional Limits Comments Strength Comments No unilateral deficit on exam. Coordination Assessment Gross Coordination Gross Coordination WNL Assessment Finger to Nose Test Normal Performance Pronation/Supination Test Normal Performance Foot Tapping Test Normal Performance Sensation Assessment Sensation Gross Sensation WNL Muscle Tone Muscle Tone WNL Yes Comments Muscle Tone Comments No clonus at bilateral wrists with rapid supination. Other Assessments Other Other Assessments Visual tracking mildly impaired. VOR possibly impaired on head thrust test. No resting or gaze-evoked nystagmus. M6 PT-IP Treatment Start: 12/13/19 09:03 Freq: NEEDED Status: Active Protocol: Document 12/13/19 10:37 AW (Rec: 12/13/19 10:56 AW [id number]) Physical Therapy Treatment Education Education Provided Precautions,Safety Other Treatments Other Treatment Performed Provided education on role of PT, vestibulooccular reflex, and signs and symptoms of CVA which pt was able to teach back. M7 PT-IP Assessment and Plan Start: 12/13/19 09:03 Freq: NEEDED Status: Active Protocol: Document 12/13/19 10:37 AW (Rec: 12/13/19 10:56 AW [id number]) PT Summary Assessment and Plan Summary Assessment Summary Berta is a 79 yo woman seen for PT evaluation after being admitted with TIA-like symptoms of memory loss and transient word-finding difficulty. Pt is independenet in all regards at baseline and has history of occular migraine with aura. On evaluation, pt completes all mobility independently and is clear of speech or memory impairment. No acute PT needs were identified. Pt will be safe to discharge home once medically cleared. Frequency of Treatment Frequency Of Treatment Discharge Recommendations To Nursing Amount of Assist Needed Independent Discharge Recommendations PT Discharge Recommendations Home Transportation Needs at Discharge Private Vehicle
--- NOTE | 2019-12-13 11:15 | PC.NURSE ---
Day shift: Pt off unit for MRI at approx 1040. Back on AC unit at approx 1115.
--- NOTE | 2019-12-13 11:58 | P.DS_ITS ---
History of Present Illness History of Present Illness Date Patient Seen: 12/13/19 Time Patient Seen: 11:58 Chief complaint: Think TIA, Can't Remember Anything Narrative: As per ASHTYN Thompson: Berta Perez is a very pleasant 79-year-old female with a history of migraines and no other medications or stated medical history who presented today with migraines. She has hyperlipidemia listed on her problem list but is not taking a statin. She states that she got very confused today and was having difficulties reading and remembering who her daughter and her daughter's friend's and names were. She states that her migraines are usually preceded by seen a central flickering light in the middle of her visual field, but today was actually off to both sides laterally. She has been evaluated in the past by ophthalmology and was told that she was close to eventually needing to have cataract surgery and IOL placement. She describes the visual changes is being light and shimmery. She has a multitude of other medical complaints that she has been worked up for in the past or currently being worked up for. She has chronic pancreatitis with cysts seen on imaging in her pancreas, kidneys, liver, and ovary. She is also complaining of eventually having to have a knee replacement surgery. She denies shortness of breath, chest pain, dysuria, diarrhea, constipation, she does have ganglion cysts on her fingers of her left hand as well as her right toe. She states she is under lot of stress largely due to the isolation imposed by [employer] and the current election, and issues with our current president. Temperature 98? point, blood pressure 154/67, heart rate 60, respiratory rate 18, oxygen saturation of 96% on room air, he weighs 77.1 kg with BMI of 27.4. WBC is 6.8, RBC 5.43, hemoglobin 14.9, hematocrit 44.4, platelet count 217, sodium 139, potassium 4.2, chloride 103, bicarb 30, BUN 15, creatinine 0.98, GFR is 55, glucose 90, calcium 9.7, liver enzymes are largely within normal limits, cardiac enzymes are within normal limits, COVID-19 screen is negative. Discharge Providers Provider Date of admission: 12/12/19 17:08 Discharge Date: 12/13/19 Primary care physician: Donell Mcmullen MD Consults: 12/12/19 21:34 Consult to Occupational Therapy Evaluate & Treat Comment: Physician Instructions: Evaluate and treat Consult to Physical Therapy Evaluate & Treat Comment: Physician Instructions: Evaluate and Treat Consult to Speech Therapy Evaluate & Treat Comment: Physician Instructions: Evaluate and treat Discharge provider: Reynaldo Johansen DO Summary Hospital Course Discharge Diagnosis: 1. Ocular migraines, acute on chronic, resolved, present on admission 2. Hypertension, present on admission Hospital Course: This is a 79-year-old female who was admitted for MR imaging after an episode of confusion following her typical ocular migraines. She had a difficult time remembering the names of her family members which subsequently returned within an hour. She had no deficits with speech and upon arrival her stroke scale was 0. Her MRI was unremarkable as was her echocardiogram. This could be related to a TIA however a complex migraine seems more likely at this time. No events were noted on telemetry. Her blood pressures were slightly elevated and she was started on a low-dose of amlodipine, 2.5 mg. She will follow-up with her primary care provider for further evaluation of symptoms continue. Status at Discharge Cognitive/behavioral status at discharge: oriented Functional status at discharge: independent ambulation Overall status at discharge: patient is back to baseline Exam Vital Signs (past 8 hours): - 12/13/19 04:38 12/13/19 08:00 Temperature 97.7 F 97.5 F L Pulse Rate 66 56 L Respiratory Rate 18 18 Blood Pressure 145/78 H 151/77 H Pulse Oximetry 97 97 Oxygen Delivery Method Room Air Oxygen Flow Rate 0 Narrative Exam Narrative: GENERAL APPEARANCE: Well developed, well nourished, in no acute distress. SKIN: Inspection of the skin reveals no rashes, ulcerations or petechiae. HEENT: Normocephalic atraumatic, extraocular muscles are intact, oropharynx is clear and mucous membranes are moist, neck is supple without adenopathy NECK: Supple and symmetric. There was no thyroid enlargement, and no tenderness, or masses were felt. CHEST: Normal AP diameter and normal contour without any kyphoscoliosis. LUNGS: Auscultation of the lungs revealed no wheezes, rhonchi, or rales. CARDIOVASCULAR: There was a regular rate and rhythm without any murmurs, gallops, rubs. Peripheral pulses were 2+ and symmetric. ABDOMEN: Soft and nontender with normal bowel sounds. No ascites was noted. MUSCULOSKELETAL: There was no tenderness or effusions noted. Muscle strength and tone were normal. EXTREMITIES: No cyanosis, clubbing or edema. NEUROLOGIC: Alert and oriented x 3. Normal affect. Gait was normal. Strength is +5/5 in the Upper Extremities and Lower Extremities Bilaterally. Sensation to touch was normal. Objective Labs Result Diagrams: 12/13/19 05:02 12/13/19 05:02 Labs: Laboratory Results - last 24 hr 12/12/19 12/12/19 12/12/19 14:58 14:58 14:58 WBC 6.8 RBC 5.43 H Hgb 14.9 Hct 44.4 MCV 81.8 MCH 27.5 MCHC 33.6 RDW 14.1 Plt Count 217 Neut % (Auto) 45.6 L Lymph % (Auto) 40.9 H [place] % (Auto) 9.4 Eos % (Auto) 3.3 Baso % (Auto) 0.8 Neut # (Auto) 3100 Lymph # (Auto) 2800 [place] # (Auto) 600 Eos # (Auto) 200 Baso # (Auto) 100 PT 11.2 INR 1.0 APTT 37 H Sodium 139 Potassium 4.2 Chloride 103 Carbon Dioxide 30 BUN 15 Creatinine 0.98 Estimated GFR 55.0 L BUN/Creatinine Ratio 15.3 Glucose 90 Calcium 9.7 Magnesium Total Bilirubin 0.6 AST 25 ALT 19 Alkaline Phosphatase 71 Total Creatine Kinase 30 CK-MB (CK-2) TNP CK-MB (CK-2) Rel Index TNP Troponin I < 0.012 Total Protein 7.4 Albumin 4.4 Globulin 3.0 Albumin/Globulin Ratio 1.5 Triglycerides Cholesterol LDL Cholesterol, Calc HDL Cholesterol COVID-19 PCR 12/12/19 12/13/19 12/13/19 17:11 05:02 05:02 WBC 7.1 RBC 4.91 Hgb 13.5 Hct 39.9 MCV 81.3 MCH 27.6 MCHC 33.9 RDW 13.9 Plt Count 189 Neut % (Auto) 46.2 L Lymph % (Auto) 40.3 H [place] % (Auto) 9.6 Eos % (Auto) 3.2 Baso % (Auto) 0.7 Neut # (Auto) 3300 Lymph # (Auto) 2900 [place] # (Auto) 700 Eos # (Auto) 200 Baso # (Auto) 100 PT INR APTT Sodium 139 Potassium 3.8 Chloride 105 Carbon Dioxide 27 BUN 14 Creatinine 0.89 Estimated GFR > 60.0 BUN/Creatinine Ratio 15.7 Glucose 94 Calcium 9.0 Magnesium 2.1 Total Bilirubin AST ALT Alkaline Phosphatase Total Creatine Kinase CK-MB (CK-2) CK-MB (CK-2) Rel Index Troponin I Total Protein Albumin Globulin Albumin/Globulin Ratio Triglycerides 154 H Cholesterol 179 LDL Cholesterol, Calc 114 H HDL Cholesterol 34 L COVID-19 PCR Negative Discharge Plan Discharge Plan Patient Disposition: Home Discharge comment: You were admitted to the hospital after an episode of difficulties with word finding. This may be related to your migraines but could also be due to a TIA but this is less likely. Your brain MRI was unremarkable and did not show evidence of a stroke. Your blood pressure was very high on arrival to the hospital but improved to slightly elevated. Given high blood pressures, you were started on a low dose of a blood pressure medication. Please follow up with Dr. Mcmullen for a repeat blood pressure check and if possible you should watch your blood pressures at home as well. Discharge orders & Medications Prescriptions: New amlodipine 2.5 mg tablet 2.5 mg PO DAILY 30 Days Qty: 30 RF: 0 Continued fluocinolone 0.01 % solution 1 applictn TOP BID PRN (Reason: Rash) RF: 0 qqphltztqekq-hvm-aikr-FA-vit K 1 100 ml PO QAM RF: 0 ascorbic acid (vitamin C) 500 mg capsule 500 mg PO DAILY RF: 0 Bone Density Calcium + D 300-200-37.5 mg-unit-mg Tablet 1 tab PO QAM RF: 0 Follow up/Referrals: Donell Mcmullen MD [Primary Care Provider] - 12/17/19 9:15 am (appt:12/16 @ 9:[address] mcmullen please arrive 15 minutes prior to your scheduled appointment) Diet/Activity/Treatments Diet: Diet as Tolerated and Low-sodium Activity: As tolerated Visit Report/Discharge Packet Instructions: Migraine Headaches (Alternative Therapy), Ischemic Stroke, Migraine -- Adult, Essential Hypertension, How to Prevent Falls, Amlodipine Visit Report Forms: Patient Portal/API, Stroke Signs & Symptoms Discharge Data Primary Care Provider: Donell Mcmullen Attending Provider: Stefanie Hernandez Admit Date/Time: 12/12/19 17:08 Discharges patient from system. Discharge Date/Time: 12/13/19 14:26
--- NOTE | 2019-12-13 12:14 | OT.IP.EVAL ---
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 M1 PT/OT-IP Prior Functional Status Start: 12/13/19 14:23 Freq: NEEDED Status: Active Protocol: Document 12/13/19 11:25 [facility] (Rec: 12/13/19 14:42 [facility] [id number]) Medical Review Prior Functional Status Medical History Reviewed Yes: PMH includes occular migraine ~30 years Communication WNL. No known deficits. Mobility and Gait Pt has history of bilateral ARON and complains of bilateral knee pain. Pt is independent with all mobility at baseline without assistive device and without meaningful limit. Activities of Daily Living and IADL's Completely independent with all ADL and IADl needs however does have difficulty doing her hair due to old right shoulder injury. Prior Functional Level (Other details) Pt is an active package car driver. She states she takes no medications other than vitamins. Social History Household Members spouse Living Arrangements House Number of Floors (Floors) Two Floors Number of Stairs To Enter/Railing? Pt lives on the main level and has only one step to enter. Home Environment High Toilet,Walk in Shower, Bidet Home Equipment Front Wheel Walker,Four Wheel Walker,Quad Cane,Straight Cane Additional Social History Comment Pt lives with her spouse, Alvaro. M2 OT-IP Current Condition Start: 12/13/19 14:23 Freq: Status: Active Protocol: Document 12/13/19 11:25 [facility] (Rec: 12/13/19 14:42 [facility] [id number]) Occupational Therapy Current Condition Current Condition Evaluation Date 12/13/19 Treatment Diagnosis Possible TIA, altered mental status Diagnosis Onset Date 12/12/19 M3 OT- IP Subjective and Pain Start: 12/13/19 14:23 Freq: Status: Active Protocol: Document 12/13/19 11:25 [facility] (Rec: 12/13/19 14:42 [facility] [id number]) OT- Subjective Occupational Therapy Visit Type Type Initial Evaluation Visit Start Time 11:25 Visit Stop Time 12:14 Total Visit Minutes 49 Occupational Therapy Visit Comments Patient Comments Pt agreed to see OT , but just came back from MRI. Patient/Caregiver Goals To go home. OT Pain Assessment Pain When Pain Assessed At Rest Pain Present Pain Present Denied Pain M4 OT- IP ADL's Start: 12/13/19 14:23 Freq: Status: Active Protocol: Document 12/13/19 11:25 [facility] (Rec: 12/13/19 14:42 [facility] [id number]) OT MSL-Skxy-Wuczsex Comments OT Self-Feeding Comments NOt at meal time. OT ADL-Grooming General Evaluation Grooming Ability Independent OT ADL-Dressing General Eval Lower Body Dressing Ability Independent OT ADL-Toileting Comments OT Toileting Comments Pt not having to use the bathroom. OT ADL-Bathing Comments OT Bathing Comments Pt not wanting to shower at this time. M5 OT- IP IADL's Start: 12/13/19 14:23 Freq: Status: Active Protocol: Document 12/13/19 11:25 [facility] (Rec: 12/13/19 14:42 [facility] [id number]) OT-Instrumental Activities of Daily Living Home Safety Awareness Awareness of Need for Assistance at Home Good Awareness Ability to Problem Solve Emergency Able to Problem Solve Situations Medication Management Medication Management No Deficits Identified Money Management Money Management Caregiver Provides Assistance Meal Preparation Meal Preparation Comments Pt states will have assist as needed. Plug Saw Operator Plug Saw Operator Comments Pt states to have assist at needed. Driving Driving Comments Pt states good awareness and agrees that she will not to drive if not feeling well. M6 OT- IP Functional Cognition Start: 12/13/19 14:23 Freq: Status: Active Protocol: Document 12/13/19 11:25 [facility] (Rec: 12/13/19 14:42 [facility] [id number]) Cognitive Factors Limiting Selfcare Function Cognitive Ability Level of Alertness Alert Patient Orientation Name,Age,Birthday,Month,Date, Year,Day of Week,Place, Situation Attention Span Ability Capable of Focused Attention, Capable of Sustained Attention Ability to Follow Commands Able to Follow Multi-Step Commands Memory Description Short Term Impaired Safety Awareness No Deficits Noted Problem Solving Ability No deficits Noted Executive Function Ability Unable to Remember Details Cognitive Tests SLUMS Pt scored 27/30 which implies normal level of cognition for pt. Pt able to recall 4/5 words after time passed and able to answer 3/4 questions after paragraph read. Cognitive Comments Cognitive Assessment Comments Pt scored 128 seconds on [place] Making Part B which implies moderate impairment for visual attention, speed of processing, task switching, mental flexibility, and executive functioning. Pt states has floaters in her eyes that may have affected her scoring. OT- Vision and Hearing OT- Hearing Assessment OT- Hearing Assessment WFL OT- Vision Assessment Visual Acuity Glasses For Reading Vision Assessment Comments Use of reading glasses but not in the room. M7 OT- IP Mobility and Balance Start: 12/13/19 14:23 Freq: Status: Active Protocol: Document 12/13/19 11:25 [facility] (Rec: 12/13/19 14:42 [facility] [id number]) OT- Bed Mobility Assessment Sit to Supine Sit to Supine Assist Independent OT-Transfer Assessment Sit to and From Stand Sit to and from Stand Independent Transfers Transfer Ability Independent Technique Transfer Destination Bed,Chair OT- Gait Assessment Comments Gait Ability Comments Independent while in the room with no device. OT- Balance Assessment Sitting Balance and Reactions Static Sitting Balance Ability Normal Dynamic Sitting Balance Ability Normal Standing Balance and Reactions Static Standing Balance Ability Normal M8 OT- IP Objective Assessments Start: 12/13/19 14:23 Freq: Status: Active Protocol: Document 12/13/19 11:25 [facility] (Rec: 12/13/19 14:42 [facility] [id number]) OT Gross Range of Motion Upper Extremity Range of Motion Assessment Right Impaired OT Strength Upper Extremity Strength Assessment Right Impaired Comments Strength Comments Per pt has old right shoulder injury and not able to raise her arm up , but from elbow to distally no problems. OT- Coordination Assessment Upper Extremity Finger to Nose Test Within Functional Limits OT-Muscle Tone Assessment Muscle Tone WNL Yes M9 OT- IP Assessment and Plan Start: 12/13/19 14:23 Freq: Status: Active Protocol: Document 12/13/19 11:25 [facility] (Rec: 12/13/19 14:42 [id number] OT Summary Assessment and Plan Potential Rehabilitation Potential Excellent Analytic Complexity at Evaluation Low Summary OT Impairments Bathing Progress Towards Goals Progressing Toward Goals Assessment Summary Pt low complexity and here due to possible TIA due to not able to remember her daughter' s name which has now resolved. Pt noted to have score of 27 /30 on the SLUMS which implies normal cognition. Pt feels close to her baseline but just feeling a little off. Pt has a supportive at home to assist and in addition pt has good insight and awareness of her situation. Pt when medically stable to go home. Goals Shower Transfer Goal Independent Days to Meet Goals 1 Frequency of Treatment Frequency Of Treatment Once a Day Treatment Plan OT Treatment Plan Patient/Family Education, Discharge Planning Other Treatment Recommendations and Next shower if still here Treatment Focus Discharge Recommendations OT Discharge Recommendations Home with Assistance Transportation Needs at Discharge Private Vehicle
[2019-12-13] MEDS: AMLODIPINE 5 MG TABLET 2.5 MG PO (12:16)
--- NOTE | 2019-12-13 12:47 | DI.ECHO.S_ITS ---
Echocardiogram Report + + :Name: JOSEPHINE HANDY Study Date: 12/13/2019 Height: 66 in : :[facility] Weight: 170 lb : : Gender: Female BSA: 1.9 m2 : :: 1940 Age: 79 yrs BP: 192/96 mmHg: :Reason For Study: TIA : :Ordering Physician: THANG NEW : :ASHTYN Performed By: Shanna Rocha : :Referring: THANG NEWP : + + Interpretation Summary Normal left ventricle size with ejection fraction 60-65%. Mild aortic valve sclerosis. Mild mitral annular calcification. Mild mitral regurgitation. Mild to moderate tricuspid regurgitation. Mildly enlarged ascending aorta. Procedure: A two-dimensional transthoracic echocardiogram with color flow and Doppler was performed. The study quality was technically adequate. There is no prior echocardiogram noted for this patient. Left Ventricle: The left ventricle is normal in size and wall thickness. The ejection fraction is estimated to be 60-65%. There are no focal wall motion abnormalities. Diastolic parameters suggest probable normal left ventricular diastolic function and normal filling pressures. Right Ventricle: The right ventricle is normal in size and function. Atria: Both atria are normal in size. There is no Doppler evidence for an interatrial shunt. Mitral Valve: The mitral valve leaflets appear mildly thickened, but open well. There is mild mitral annular calcification. There is mild mitral regurgitation. Aortic Valve: There is mild aortic valve sclerosis. The aortic valve opens well. There is no aortic valve stenosis. There is trace aortic regurgitation. Tricuspid Valve: The tricuspid valve is normal in structure and function. There is mild to moderate tricuspid regurgitation. Pulmonic Valve: The pulmonic valve is not well seen, but is grossly normal. There is no pulmonic valvular regurgitation. Great Vessels: The aortic root is normal size. The ascending aorta is mildly enlarged. The IVC is of normal diameter and collapses greater than 50% with a sniff. This suggests a low right atrial pressure of 3 mm Hg. Pericardium/ Pleura There is no pericardial effusion. There is no pleural effusion. MMode/2D Measurements & Calculations LVIDd: 4.1 cm LVOT diam: 2.2 cm LVIDs: 3.1 cm Ao root diam: 3.1 cm FS: 25.4 % asc Aorta Diam: 3.5 cm EPSS: 0.65 cm Ao Arch Diam (Prox Trans): 3.1 cm IVSd: 0.78 cm LVPWd: 1.0 cm LV doe. diameter/BSA (cm/m^2): 2.2 LV sys. diameter/BSA (cm/m^2): 1.6 LA A2 area: 17.6 cm2 RA long axis: 4.4 cm LA A4 area: 17.2 cm2 RA area: 13.6 cm2 LA length (vol): 5.0 cm RA vol: 35.2 ml LA vol: 51.5 ml RA : 18.8 ml/m2 LA vol index: 27.6 ml/m2 IVC diam: 1.9 cm RVD1 (basal): 3.8 cm TAPSE: 2.2 cm Doppler Measurements & Calculations Ao V2 max: 180.7 cm/sec LVOT Max Franc: 134.4 cm/sec Ao V2 mean: 117.6 cm/sec LV V1 max P.2 mmHg Ao max P.1 mmHg LV V1 VTI: 28.3 cm Ao mean P.3 mmHg JOSEF(I,D): 2.9 cm2 Ao V2 VTI: 37.6 cm JOSEF(V,D): 2.8 cm2 sev ratio: 0.75 JOSEF indexed to BSA (cm^2/m^2): 1.5 MV E max franc: 59.8 cm/sec TR max franc: 262.6 cm/sec MV A max franc: 74.1 cm/sec TR max P.6 mmHg MV E/A: 0.81 PA V2 max: 69.2 cm/sec Med Peak E' Franc: 5.2 cm/sec PA V2 mean: 48.9 cm/sec E/E' med: 11.6 PA mean P.1 mmHg Lat Peak E' Franc: 6.2 cm/sec PA pr(Accel): 13.9 mmHg E/E' lat: 9.7 E/e' average: 10.6 MV dec time: 0.25 sec SV(LVOT): 107.4 ml Electronically signed by: Bev Ruiz on Reading Physician:12/13/2019 03:46 PM
--- NOTE | 2019-12-13 12:57 | CM.DANOTE ---
DCP/Assessment: Reviewed chart. Patient is a 79yr old female admitted [facility] with TIA like symptoms. PCP is Dr. Mcmullen. Primary payor is 1)Medicare 2)[employer]. Met with patient explained CM/SW role. Patient alert and oriented x3. Patient ambulating in room completely independently. Patient reports that she plans to d/c home today with supportive spouse/Joseph. Patient reports that she has no d/c planning needs. P: Home today. FLORENCE Neal Discharge Planning/Care Management CM Discharge Assessment Start: 12/13/19 12:56 Freq: Status: Active Protocol: Document 12/13/19 12:56 [facility] (Rec: 12/13/19 12:57 [facility] [id number]) Discharge Planning Assessment Assigned Director Of Pulmonary Unit FLORENCE Neal Contact Information Joseph Perez (spouse) [phone] Advance Directives? Yes: Health Care Directive and Supplement, Declaration of Witnesses Advance Directives on File Yes: Dated 04/08/98 History Provided By Patient,Medical Record Prior Living Arrangements House Household Members spouse Type of transporation used prior to Drives own vehicle admit Independent with ADL's Yes Is patient alert and oriented? Yes Barriers to Discharge No Discharge Plan Home Transportation Arrangement Family to provide transport. Referrals Initiated None needed Whiteboard Updated in Patient Room with Yes name and ext. # of Director Of Pulmonary Unit Review Status In Process Next Review Type Continued Stay Review
--- NOTE | 2019-12-13 14:13 | PC.NURSE ---
Day shift: Pt left unit at approx 1410. Paperwork signed and all questions answered. MD álvarez sent electronic. Pt has all personal belongings. Teaching done on hypertension and the new med Amlodipine. Takne to car in by BLAKE Virk. Pt's spouse will drive Pt home. Suggested Pt f/u with her PCP WANDA.
== END 2019-12-13 14:26 | disposition home or self-care (01) ==
LOC: ED 17:01 → AC 17:08
PROVIDERS: Nurse Practitioner Family; Admitting Provider Internal Medicine; Emergency Provider Emergency Medicine; PCP Student in an Organized Health Care Education/Training Program; Visit Provider Internal Medicine
DX: R29.818 Other symptoms and signs involving the nervous system (principal); G43.909 Migraine, unspecified, not intractable, without status migrainosus; I10 Essential (primary) hypertension; E78.5 Hyperlipidemia, unspecified; J45.909 Unspecified asthma, uncomplicated; Z11.59 Encounter for screening for other viral diseases
CPT/HCPCS: 36415; 36592; 70450; 70548; 70553; 80048; 80053; 80061; 81003; 82550; 82962; 83735; 84484; 85025; 85610; 85730; 87635; 93005; 93306; 96372; 97161; 97165; 99284; 99285; G0378; J1650

== ENCOUNTER → 2020-03-06 12:10 | Outpatient (CLI) | payer MEDICARE, OTHER, SELFPAY ==
[2019-12-12 18:57] VITALS: BMI 27.4
--- NOTE | 2020-03-06 12:13 | DI.US.S_ITS ---
PROCEDURE: US PERIPH VENOUS LOW EXTREM LT INDICATIONS: EDEMA TECHNIQUE: Real-time imaging, as well as color and pulse Doppler interrogation, were performed of the lower extremity deep veins from the inguinal ligament to the popliteal fossa. COMPARISON: None. FINDINGS: The common femoral, femoral and popliteal veins are normally compressible, and free of intraluminal thrombus. Color and pulse Doppler demonstrate normal phasic intraluminal flow. There is normal augmentation response to distal compression maneuver. There is a 3.4 x 4.7 x 1.3 cm garcia cyst at the posterior left knee IMPRESSION: No DVT found. Garcia cyst at the posterior left knee identified. This may represent the source of reported pain in that region. Dictated by: Roni Ojeda M.D. on 03/06/2020 at 14:04 Approved by: Roni Ojeda M.D. on 03/06/2020 at 14:05
== END ==
PROVIDERS: PCP Student in an Organized Health Care Education/Training Program; Referring Provider Student in an Organized Health Care Education/Training Program; Visit Provider Student in an Organized Health Care Education/Training Program
DX: M79.89 Other specified soft tissue disorders (principal); M71.22 Synovial cyst of popliteal space [Baker], left knee
CPT/HCPCS: 93971

== ENCOUNTER → 2020-05-16 12:42 | Outpatient (CLI) | payer MEDICARE, OTHER, SELFPAY ==
[2019-12-12 18:57] VITALS: BMI 27.4
--- NOTE | 2020-05-16 12:46 | DI.US.S_ITS ---
PROCEDURE: US PELVIC COMPLETE INDICATIONS: RIGHT OVARIAN CYST TECHNIQUE: Real-time scanning was performed of the pelvic organs, with image documentation. Additional endovaginal scanning was necessary due to incomplete visualization of the adnexal and endometrial structures by transabdominal scanning. COMPARISON: [facility], , US PELVIC COMPLETE, 05/31/2019, 11:00. FINDINGS: Uterus: Uterus is normal in size at 5.4 x 2.3 x 3.9 cm. The endometrium measures 1.8 mm in combined thickness. Diffusely heterogeneous anterior myometrium with mass 2nd court appearance possibly a intramural fibroid measuring 2.1 x 1.0 x 1.9 cm. Ovaries: Simple right ovarian cyst redemonstrated unchanged measuring 3.1 x 2.4 x 2.4 cm. The left ovary is not visualized. Other: No pathologic free abdominal or pelvic fluid. IMPRESSION: 1 Stable appearance of 3.1 cm simple right ovarian cyst. Annual sonographic surveillance recommended. 2. Heterogeneous anterior myometrium possibly a fibroid measuring up to 2.1 cm. Attention on follow-up recommended. Dictated by: Baudilio RICH Interpreted: Genny Morel MD on 05/16/2020 at 13:46 Approved by: Genny Morel M.D. on 05/16/2020 at 17:02
--- NOTE | 2020-05-16 12:47 | DI.MRI.S_ITS ---
PROCEDURE: MR ABDOMEN WO/W CON INDICATIONS: Lesion of pancreas TECHNIQUE: Coronal HASTE, axial 2D FLASH in- and [id number]; axial breath-hold T2 FSE with fat saturation from the hepatic dome to the iliac crests. Oblique coronal thin-slice and radial thick slab HASTE through the biliary system. Dynamic axial VIBE during administration of contrast. Post-contrast coronal VIBE or 2D FLASH with fat saturation from the hepatic dome to the iliac crests. Optional diffusion weighted imaging and ADC may be performed. COMPARISON: [facility], MR, MR ABDOMEN PELVIS WWO CON, 03/11/2019, 18:01. [facility], CT, CT ABDOMEN WO/W CON, 09/06/2019, 11:20. FINDINGS: Image quality: Excellent. Pancreas and biliary system: 2.5 x 2.0 x 1.9 cm T2 hyperintense heterogeneous mass in the distal tail of the pancreas is redemonstrated. The connection to the main pancreatic duct is seen. Minimal internal enhancement on all phases. The rest of the pancreas is mildly atrophied and the duct is normal caliber. Solid organs: Liver is normal in size and enhancement. Single simple hepatic cyst in the subcapsular right hepatic lobe. Gallbladder is surgically absent. Spleen is normal in size and enhancement. No adrenal nodules. Right renal morphology is normal. There is near complete replacement of the left renal parenchyma with numerous simple cysts of varying sizes. There is no hydronephrosis. Nodes and vessels: No retroperitoneal or mesenteric adenopathy by size criteria. Aorta and inferior vena cava are normal in size. Bowel and peritoneum: Unenhanced bowel loops are normal in caliber throughout. No free fluid. Lung bases: No basal pleural effusions. Heart size is normal. Bones and soft tissues: No ventral hernias. Bone marrow is normal in overall signal. IMPRESSION: 1. 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 Continued CT or MRI follow-up in six months is recommended to document continued stability. 2. Multiple left renal cysts. Dictated by: Beth Delgado M.D. on 05/16/2020 at 15:47 Approved by: Beth Delgado M.D. on 05/16/2020 at 16:10
== END ==
PROVIDERS: PCP Student in an Organized Health Care Education/Training Program; Referring Provider Obstetrics & Gynecology Gynecologic Oncology; Visit Provider Obstetrics & Gynecology Gynecologic Oncology
DX: K86.9 Disease of pancreas, unspecified (principal); N28.1 Cyst of kidney, acquired; N83.291 Other ovarian cyst, right side
CPT/HCPCS: 74183; 76830; 76856; A9579

== ENCOUNTER → 2020-11-02 13:30 | Outpatient (CLI) | payer MEDICARE, OTHER, SELFPAY ==
[2019-12-12 18:57] VITALS: BMI 27.4
[2020-11-02 13:35] LABS: RBC Urine None Seen (0-5/HPF)
[2020-11-02 13:42] LABS: Appearance Urine UA CLEAR; Bilirubin Urine UA NEGATIVE (NEGATIVE); Color Urine UA YELLOW; Glucose Urine UA NEGATIVE (Negative); Ketones Urine UA NEGATIVE (NEGATIVE); Leukocyte Esterase Urine UA TRACE (NEGATIVE); Nitrite Urine UA NEGATIVE (Negative); Occult Blood Urine UA NEGATIVE (Negative); Protein Urine UA NEGATIVE (Negative); Specific Gravity Urine UA <=1.005 (1.000-1.035); Urobilinogen Urine UA 0.2 E.U./dL (0.2)
[2020-11-02 13:43] LABS: pH Urine UA 5.5 (4.5-8.0)
[2020-11-02 13:56] LABS: Bacteria Urine Few (2-10); Culture Indicated Urine Specimen Cultured; Squamous Epithelial Cell Urine 1-5 /HPF (0-5/HPF); WBC Urine 0-1/HPF (0-5/HPF)
== END ==
PROVIDERS: PCP Student in an Organized Health Care Education/Training Program; Referring Provider Student in an Organized Health Care Education/Training Program; Visit Provider Student in an Organized Health Care Education/Training Program
DX: R30.0 Dysuria (principal)
CPT/HCPCS: 81001; 87086

== ENCOUNTER → 2020-11-08 14:09 | Outpatient (CLI) | payer MEDICARE, OTHER, SELFPAY ==
[2019-12-12 18:57] VITALS: BMI 27.4
--- NOTE | 2020-11-08 | DI.MRI.S_ITS ---
PROCEDURE: MR ABDOMEN WO/W CON INDICATIONS: Disease of pancreas, unspecified TECHNIQUE: Coronal HASTE, axial 2D FLASH in- and [id number]; axial breath-hold T2 FSE with fat saturation from the hepatic dome to the iliac crests. Oblique coronal thin-slice and radial thick slab HASTE through the biliary system. Dynamic axial VIBE during administration of contrast. Post-contrast coronal VIBE or 2D FLASH with fat saturation from the hepatic dome to the iliac crests. Optional diffusion weighted imaging and ADC may be performed. COMPARISON: [facility], MR, MR ABDOMEN WO/W CON, 05/16/2020, 13:26. FINDINGS: Image quality: Excellent. Pancreas and biliary system: The ovoid sharply demarcated high T2 signal structure with internal mild heterogeneity is again seen at the pancreatic tail previously having measured up to 2.6 cm oblique AP and currently measuring 2.5 cm at the same margins. This shows no definite internal contrast enhancement, and is not associated with development of adjacent adenopathy. Solid organs: Liver is normal in size and enhancement. Gallbladder appears surgically absent. Spleen is normal in size and enhancement. No adrenal nodules. Kidneys are unchanged in size and enhancement, without hydronephrosis bilaterally but with numerous left renal cortical cysts small and moderate in size. These were previously present, without change and no right-sided renal cortical abnormality is found.. Nodes and vessels: No retroperitoneal or mesenteric adenopathy by size criteria. Aorta and inferior vena cava are normal in size. Bowel and peritoneum: Unenhanced bowel loops are normal in caliber throughout. No free fluid. Lung bases: No basal pleural effusions. Heart size is normal. Bones and soft tissues: No ventral hernias. Bone marrow is normal in overall signal. IMPRESSION: Stable appearance of an ovoid T2 high signal abnormality at the pancreatic tail in the setting of no solid or definitely enhancing pancreatic mass elsewhere. As noted, there are numerous cysts involving the left kidney but essentially none involving the right kidney. No adenopathy is found. No regional or distant metastatic disease is seen. Dictated by: Roni Ojeda M.D. on 11/08/2020 at 15:22 Approved by: Roni Ojead M.D. on 11/08/2020 at 15:32
== END ==
PROVIDERS: PCP Student in an Organized Health Care Education/Training Program; Referring Provider Internal Medicine Gastroenterology; Visit Provider Internal Medicine Gastroenterology
DX: K86.9 Disease of pancreas, unspecified (principal)
CPT/HCPCS: 74183

== ENCOUNTER → 2020-12-11 09:38 | Outpatient (CLI) | payer MEDICARE, OTHER, SELFPAY ==
[2019-12-12 18:57] VITALS: BMI 27.4
--- NOTE | 2020-12-11 | DI.US.S_ITS ---
PROCEDURE: US PELVIC COMPLETE INDICATIONS: FOLLOW-UP RIGHT OVARIAN CYST TECHNIQUE: Real-time scanning was performed of the pelvic organs, with image documentation. Additional endovaginal scanning was necessary due to incomplete visualization of the adnexal and endometrial structures by transabdominal scanning. COMPARISON: [facility], US, US PELVIC COMPLETE, 05/16/2020, 13:03. FINDINGS: Uterus: Uterus is normal in size at 5.1 x 2.3 x 3.8 cm. The endometrium measures 3.3 mm in combined thickness. Mid anterior intramural fibroid measuring 8 mm. Ovaries: Right ovary measures 36 mm x 26 mm x 26 mm. Previously seen simple right ovarian cyst is not significantly changed, currently measuring 32 mm x 25 mm x 23 mm. Left ovary is not seen. Other: No pathologic free abdominal or pelvic fluid. IMPRESSION: 1. No significant change in right ovarian cyst. Low-grade underlying malignancy cannot be excluded. 2. Small uterine fibroid. Dictated by: Andrae Madrid M.D. on 12/11/2020 at 13:19 Approved by: Andrae Madrid M.D. on 12/11/2020 at 16:19
== END ==
PROVIDERS: PCP Student in an Organized Health Care Education/Training Program; Referring Provider Obstetrics & Gynecology Gynecologic Oncology; Visit Provider Obstetrics & Gynecology Gynecologic Oncology
DX: N83.291 Other ovarian cyst, right side (principal); D25.1 Intramural leiomyoma of uterus
CPT/HCPCS: 76830; 76856

== ENCOUNTER → 2020-12-30 11:02 | Outpatient (CLI) | payer MEDICARE, OTHER, SELFPAY ==
[2019-12-12 18:57] VITALS: BMI 27.4
--- NOTE | 2020-12-30 11:12 | DI.MG.S_ITS ---
BILATERAL DIGITAL SCREENING MAMMOGRAM 3D/2D WITH CAD: 12/30/2020 CLINICAL: Routine screening. Family history of breast cancer. Comparison is made to exams dated: 06/29/2018 mammogram, 06/26/2017 mammogram, and 05/01/2016 mammogram - [facility]. There are scattered fibroglandular elements in both breasts. Current study was also evaluated with a Computer Aided Detection (CAD) system. There are benign calcifications in both breasts. There also are benign post operative findings in the left breast. No significant masses, calcifications, or other findings are seen in either breast. There has been no significant interval change. IMPRESSION: BENIGN There is no mammographic evidence of malignancy. A 1 year screening mammogram is recommended. This exam was interpreted at Station ID: [id number]. NOTE: For mammograms, a report in lay terms will be sent to the patient. Approximately 15% of breast malignancies will not be visualized mammographically. In the management of a palpable breast mass, a negative mammogram must not discourage biopsy of a clinically suspicious lesion. Electronically Signed By: Beth heck/leeanne:01/01/2021 10:10:22 copy to: Ashley Ramirez letter sent: Normal Exam ACR BI-RADS Category 2: Benign Finding(s) [id number]
== END ==
PROVIDERS: PCP Student in an Organized Health Care Education/Training Program; Referring Provider Obstetrics & Gynecology Gynecologic Oncology; Visit Provider Obstetrics & Gynecology Gynecologic Oncology
DX: Z12.31 Encounter for screening mammogram for malignant neoplasm of breast (principal); Z80.3 Family history of malignant neoplasm of breast
CPT/HCPCS: 77063; 77067

== ENCOUNTER → 2021-05-23 14:12 | Outpatient (CLI) | payer MEDICARE, OTHER, SELFPAY ==
[2019-12-12 18:57] VITALS: BMI 27.4
--- NOTE | 2021-05-23 | DI.MRI.S_ITS ---
PROCEDURE: MR ABDOMEN WO/W CON INDICATIONS: DISEASE OF PANCREAS TECHNIQUE: Coronal HASTE, axial 2D FLASH in- and [id number]; axial breath-hold T2 FSE with fat saturation from the hepatic dome to the iliac crests. Oblique coronal thin-slice and radial thick slab HASTE through the biliary system. Dynamic axial VIBE during administration of contrast. Post-contrast coronal VIBE or 2D FLASH with fat saturation from the hepatic dome to the iliac crests. Optional diffusion weighted imaging and ADC may be performed. COMPARISON: [facility], CT, ABDOMEN WITH CONTRAST, 04/10/2016, 10:14. [facility], CT, ABDOMEN/PELVIS WITH CONTRAST, 04/12/2014, 18:54. [facility], MR, ABDOMEN WITHOUT CONTRAST, 04/13/2014, 11:31. Outside Facility, , CT ABDOMEN/PELVIS WITH CONTRAST, 03/04/2019, 11:11. MR, MR ABDOMEN PELVIS WWO CON, 03/11/2019, 18:01. [facility], , MR ABDOMEN WO/W CON, 05/16/2020, 13:26. [facility], MR, MR ABDOMEN WO/W CON, 11/08/2020, 14:28. FINDINGS: Image quality: There is mild motion artifact. Pancreas and biliary system: Within the pancreatic tail, there is an oval heterogeneous cystic and solid mass redemonstrated, measuring up to approximately 2.5 x 1.8 cm in transverse dimension by 2.0 cm in craniocaudal dimension. This appears similar in size compared to the recent prior studies but progressively increased in size compared to prior studies dating back to the CT of 04/10/2016. There is enhancement of the solid component internally following contrast administration. Elsewhere, multiple small cysts are demonstrated along the course of the main pancreatic duct measuring up to approximately 0.6 cm. 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 No associated internal solid enhancing components. The main pancreatic duct is nondistended. No definite new solid pancreatic mass identified. The gallbladder is surgically absent. No intra or extrahepatic biliary ductal dilatation. No filling defects in the common bile duct to suggest choledocholithiasis Solid organs: There is a cyst redemonstrated laterally in the right hepatic lobe. No suspicious hepatic mass lesions. The spleen is normal in size. Numerous cysts are redemonstrated in the left kidney including multiple prominent large exophytic cysts. There is no hydronephrosis. No adrenal nodules. Nodes and vessels: No retroperitoneal or mesenteric adenopathy by size criteria. Aorta and inferior vena cava are normal in size. Bowel and peritoneum: Visualized bowel loops are normal in caliber. No intra-abdominal free fluid. Lung bases: No basal pleural effusions. Heart size is normal. Bones and soft tissues: No ventral hernias. Bone marrow is normal in overall signal. IMPRESSION: 1. Cystic mass lesion in the pancreatic tail with internal enhancing solid component appears similar in size compared to the recent prior studies but demonstrates mild increase in size over time compared to the prior studies dating back to 2017. 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 Internal enhancing solid component is concerning for malignant potential. 2. Multiple small cysts throughout the pancreas along the course of the pancreatic duct appear increased over time compared to the prior studies dating back to 2020. 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 Main pancreatic duct is nondistended. Recommend continued attention on follow-up. Dictated by: Ricco Nieto M.D. on 05/23/2021 at 17:04 Transcribed by: CANDIS on 05/23/2021 at 17:15 Approved by: Ricco Nieto M.D. on 05/24/2021 at 1:28
== END ==
PROVIDERS: PCP Student in an Organized Health Care Education/Training Program; Referring Provider Internal Medicine Gastroenterology; Visit Provider Internal Medicine Gastroenterology
DX: K86.9 Disease of pancreas, unspecified (principal); K86.2 Cyst of pancreas
CPT/HCPCS: 74183; A9579

== ENCOUNTER → 2022-01-02 13:52 | Outpatient (CLI) | payer MEDICARE, OTHER, SELFPAY ==
[2019-12-12 18:57] VITALS: BMI 27.4
--- NOTE | 2022-01-02 | DI.MG.S_ITS ---
BILATERAL DIGITAL SCREENING MAMMOGRAM 3D/2D WITH CAD: 01/02/2022 CLINICAL: Routine screening. Family history of breast cancer. Comparison is made to exams dated: 12/30/2020 mammogram, 06/29/2018 mammogram, and 09/25/2017 mammogram - [facility]. Both breasts are heterogeneously dense, which may obscure small masses (category c / 51-75% glandular tissue). Current study was also evaluated with a Computer Aided Detection (CAD) system. There are benign calcifications in both breasts. There also are benign post operative findings in the left breast. No significant masses, calcifications, or other findings are seen in either breast. There has been no significant interval change. IMPRESSION: BENIGN There is no mammographic evidence of malignancy. A 1 year screening mammogram is recommended. Based on the Tyrer Cuzick model (a risk assessment model) the patient's lifetime risk is 4.1% and her 10 year risk is 0.0%. According to the ACR, ACS, and NCCN guidelines, an annual breast MRI exam along with mammogram is recommended if the patient's lifetime risk is 20% or greater. This exam was interpreted at Station ID: [id number]. NOTE: For mammograms, a report in lay terms will be sent to the patient. Approximately 15% of breast malignancies will not be visualized mammographically. In the management of a palpable breast mass, a negative mammogram must not discourage biopsy of a clinically suspicious lesion. Electronically Signed By: Sarah vivas/leeanne:01/02/2022 16:50:11 copy to: Ashley Ramirez letter sent: Normal Exam ACR BI-RADS Category 2: Benign Finding(s) 3342F
== END ==
PROVIDERS: PCP Student in an Organized Health Care Education/Training Program; Referring Provider Student in an Organized Health Care Education/Training Program; Visit Provider Student in an Organized Health Care Education/Training Program
DX: Z12.31 Encounter for screening mammogram for malignant neoplasm of breast (principal); Z80.3 Family history of malignant neoplasm of breast
CPT/HCPCS: 77063; 77067

== ENCOUNTER → 2022-04-22 08:25 | Outpatient (CLI) | payer MEDICARE, OTHER, SELFPAY ==
[2019-12-12 18:57] VITALS: BMI 27.4
[2022-04-22 09:20] LABS: Alanine Aminotransferase 18 IU/L (<35); Albumin 3.9 g/dL (3.5-5.0); Albumin Globulin Ratio 1.4 (1.0-2.8); Alkaline Phosphatase 67 U/L (38-126); Aspartate Aminotransferase 19 IU/L (14-36); Bilirubin Total 0.5 mg/dL (0.2-1.3); Bilirubin Unconjugated 0.3 mg/dL (0.0-1.1); Globulin 2.7 g/dL (1.7-4.1); HEMOLYSIS < 15 (0-50); Lipase 334 U/L (23-300); Total Protein 6.6 g/dL (6.3-8.2)
== END ==
PROVIDERS: PCP Student in an Organized Health Care Education/Training Program; Referring Provider Internal Medicine Gastroenterology; Visit Provider Internal Medicine Gastroenterology
DX: K30 Functional dyspepsia (principal)
CPT/HCPCS: 36415; 80076; 83690

== ENCOUNTER → 2022-04-24 11:06 | Outpatient (CLI) | payer MEDICARE, OTHER, SELFPAY ==
[2019-12-12 18:57] VITALS: BMI 27.4
--- NOTE | 2022-04-24 12:50 | DI.MRI.S_ITS ---
PROCEDURE: MR ABDOMEN WO/W CON INDICATIONS: LESION OF PANCREAS TECHNIQUE: Coronal HASTE, axial 2D FLASH in- and [id number]; axial breath-hold T2 FSE with fat saturation from the hepatic dome to the iliac crests. Oblique coronal thin-slice and radial thick slab HASTE through the biliary system. Dynamic axial VIBE during administration of contrast. Post-contrast coronal VIBE or 2D FLASH with fat saturation from the hepatic dome to the iliac crests. Optional diffusion weighted imaging and ADC may be performed. COMPARISON: [facility], MR, MR ABDOMEN WO/W CON, 05/23/2021, 15:05. FINDINGS: Image quality: Excellent. Pancreas and biliary system: There is diffuse cystic lesions throughout the pancreatic parenchyma on the. The largest lesion measures 2.8 x 1.9 cm in the pancreatic tail, previously measuring 2.5 x 1.8 cm. There is no associated nodularity or pancreatic ductal dilation. Solid organs: Stable cystic lesions throughout the left renal parenchyma, without suspicious features, most consistent with Bosniak 1 and 2 cystic masses. Stable benign hepatic cyst. Nodes and vessels: No retroperitoneal or mesenteric adenopathy by size criteria. Aorta and inferior vena cava are normal in size. Bowel and peritoneum: Unenhanced bowel loops are normal in caliber throughout. No free fluid. Lung bases: No basal pleural effusions. Heart size is normal. Bones and soft tissues: No ventral hernias. Bone marrow is normal in overall signal. IMPRESSION: There is diffuse cystic lesions throughout the pancreatic parenchyma on the. The largest lesion measures 2.8 x 1.9 cm in the pancreatic tail, previously measuring 2.5 x 1.8 cm. There is no associated nodularity or pancreatic ductal dilation. Given interval growth of the dominant mass, consider EUS with FNA. Dictated by: Arnold Goodwin M.D. on 04/24/2022 at 16:48 Approved by: Arnold Goodwin M.D. on 04/24/2022 at 16:51
== END ==
PROVIDERS: PCP Student in an Organized Health Care Education/Training Program; Referring Provider Internal Medicine Gastroenterology; Visit Provider Internal Medicine Gastroenterology
DX: K86.9 Disease of pancreas, unspecified (principal); K76.89 Other specified diseases of liver
CPT/HCPCS: 74183; A9579

== ENCOUNTER → 2022-05-08 14:13 | Outpatient (CLI) | payer MEDICARE, OTHER, SELFPAY ==
[2019-12-12 18:57] VITALS: BMI 27.4
[2022-05-09 13:12] LABS: Candida species Negative (Negative); Gardnerella vaginalis Negative (Negative); Trichomoas vaginalis Negative (Negative)
== END ==
PROVIDERS: PCP Student in an Organized Health Care Education/Training Program; Visit Provider Obstetrics & Gynecology
DX: N89.8 Other specified noninflammatory disorders of vagina (principal)
CPT/HCPCS: 87480; 87510; 87660

== ENCOUNTER → 2022-06-12 14:18 | Outpatient (CLI) | payer MEDICARE, OTHER, SELFPAY ==
[2019-12-12 18:57] VITALS: BMI 27.4
[2022-06-12 15:18] LABS: Mean Corpuscular HGB Conc 33.3 % (30-36); Mean Corpuscular Hemoglobin 27.1 PG (26-34); Mean Corpuscular Volume 81.2 fL (80-100); Platelet Count 232 X10^3/uL (150-400); Red Blood Cell Count 5.17 X10^6/uL (4.0-5.2); Red Cell Distribution Width 14.4 % (11.6-14.8); White Blood Cell Count 7.4 X10^3/uL (4.5-11.0)
[2022-06-12 15:46] LABS: Alanine Aminotransferase 20 IU/L (<35); Albumin 4.1 g/dL (3.5-5.0); Albumin Globulin Ratio 1.5 (1.0-2.8); Alkaline Phosphatase 69 U/L (38-126); Aspartate Aminotransferase 23 IU/L (14-36); BUN Creatinine Ratio 20.2 (6-22); Bilirubin Total 0.4 mg/dL (0.2-1.3); Blood Urea Nitrogen 19 mg/dL (7-17); Calcium 9.3 mg/dL (8.4-10.2); Carbon Dioxide 25 mmol/L (22-32); Chloride 104 mmol/L (98-107); Cholesterol 199 mg/dL (140-199); Estimated Glomerular Filt Rate > 60 mL/min (>60); Globulin 2.7 g/dL (1.7-4.1); Glucose 100 mg/dL (80-110); HDL Cholesterol 47 mg/dL (40-60); HEMOLYSIS < 15 (0-50); LDL Cholesterol Calculated 111 mg/dL (<100); Lipase 240 U/L (23-300); Potassium 4.4 mmol/L (3.4-5.1); Sodium 139 mmol/L (137-145); Total Protein 6.8 g/dL (6.3-8.2); Triglycerides 206 mg/dL (35-150)
[2022-06-12 16:11] LABS: TSH w/ Reflex to FT4 1.67 uIU/mL (0.47-4.68)
== END ==
PROVIDERS: PCP Internal Medicine; Referring Provider Internal Medicine; Visit Provider Internal Medicine
DX: E78.2 Mixed hyperlipidemia (principal); I87.2 Venous insufficiency (chronic) (peripheral); K85.90 Acute pancreatitis without necrosis or infection, unspecified; K86.3 Pseudocyst of pancreas
CPT/HCPCS: 36415; 80053; 80061; 83690; 84443; 85027

== ENCOUNTER → 2022-10-15 13:56 | Outpatient (CLI) | payer MEDICARE, OTHER, SELFPAY ==
[2019-12-12 18:57] VITALS: BMI 27.4
[2022-10-15 15:33] LABS: Appearance Urine UA CLEAR; Bilirubin Urine UA NEGATIVE (NEGATIVE); Color Urine UA YELLOW; Glucose Urine UA NEGATIVE (Negative); Ketones Urine UA NEGATIVE (NEGATIVE); Leukocyte Esterase Urine UA 2+ (NEGATIVE); Nitrite Urine UA NEGATIVE (Negative); Occult Blood Urine UA 3+ (Negative); Protein Urine UA NEGATIVE (Negative); Specific Gravity Urine UA <=1.005 (1.000-1.035); Urobilinogen Urine UA 0.2 E.U./dL (0.2)
[2022-10-15 15:34] LABS: pH Urine UA 5.5 (4.5-8.0)
[2022-10-15 15:51] LABS: RBC Urine 0-1/HPF (0-5/HPF); WBC Urine 10-30/HPF (0-5/HPF)
[2022-10-15 15:52] LABS: Bacteria Urine Few (2-10); Culture Indicated Urine Specimen Cultured; Squamous Epithelial Cell Urine 1-5 /HPF (0-5/HPF)
== END ==
PROVIDERS: PCP Internal Medicine; Referring Provider Obstetrics & Gynecology; Visit Provider Obstetrics & Gynecology
DX: R30.0 Dysuria (principal); R35.0 Frequency of micturition
CPT/HCPCS: 81001; 87086

== ENCOUNTER → 2022-11-14 15:55 | Outpatient (CLI) | payer MEDICARE, OTHER, SELFPAY ==
[2019-12-12 18:57] VITALS: BMI 27.4
[2022-11-15 16:10] LABS: Candida species Negative (Negative); Gardnerella vaginalis Negative (Negative); Trichomoas vaginalis Negative (Negative)
== END ==
PROVIDERS: PCP Internal Medicine; Visit Provider Obstetrics & Gynecology
DX: N89.8 Other specified noninflammatory disorders of vagina (principal)
CPT/HCPCS: 87480; 87510; 87660

== ENCOUNTER → 2022-11-15 09:57 | Outpatient (CLI) | payer MEDICARE, OTHER, SELFPAY ==
[2019-12-12 18:57] VITALS: BMI 27.4
[2022-11-15 12:45] LABS: Appearance Urine UA CLEAR; Bilirubin Urine UA NEGATIVE (NEGATIVE); Color Urine UA YELLOW; Glucose Urine UA NEGATIVE (Negative); Ketones Urine UA NEGATIVE (NEGATIVE); Leukocyte Esterase Urine UA NEGATIVE (NEGATIVE); Nitrite Urine UA NEGATIVE (Negative); Occult Blood Urine UA NEGATIVE (Negative); Protein Urine UA NEGATIVE (Negative); Specific Gravity Urine UA 1.025 (1.000-1.035); Urobilinogen Urine UA 0.2 E.U./dL (0.2)
[2022-11-15 12:51] LABS: pH Urine UA 5.5 (4.5-8.0)
[2022-11-15 13:06] LABS: Bacteria Urine None Seen; Culture Indicated Urine Specimen Cultured; RBC Urine None Seen (0-5/HPF); Squamous Epithelial Cell Urine 5-10 /HPF (0-5/HPF); WBC Urine 1-5/HPF (0-5/HPF)
== END ==
PROVIDERS: PCP Internal Medicine; Referring Provider Obstetrics & Gynecology; Visit Provider Obstetrics & Gynecology
DX: R30.0 Dysuria (principal); R35.0 Frequency of micturition
CPT/HCPCS: 81001; 87086

== ENCOUNTER → 2022-11-27 09:47 | Outpatient (CLI) | payer MEDICARE, OTHER, SELFPAY ==
[2019-12-12 18:57] VITALS: BMI 27.4
[2022-11-27 13:32] LABS: Appearance Urine UA SL CLOUDY; Bilirubin Urine UA NEGATIVE (NEGATIVE); Color Urine UA YELLOW; Glucose Urine UA NEGATIVE (Negative); Ketones Urine UA NEGATIVE (NEGATIVE); Leukocyte Esterase Urine UA NEGATIVE (NEGATIVE); Nitrite Urine UA NEGATIVE (Negative); Occult Blood Urine UA NEGATIVE (Negative); Protein Urine UA TRACE (Negative); Specific Gravity Urine UA >=1.030 (1.000-1.035); Urobilinogen Urine UA 0.2 E.U./dL (0.2)
[2022-11-27 13:33] LABS: Bacteria Urine None Seen; RBC Urine 0-1/HPF (0-5/HPF); WBC Urine 1-5/HPF (0-5/HPF)
[2022-11-27 13:34] LABS: Calcium Oxalate Crystals Urine Many; Culture Indicated Urine Cult Not Indicated; Squamous Epithelial Cell Urine 5-10 /HPF (0-5/HPF)
[2022-11-28 15:27] LABS: Candida species Negative (Negative); Gardnerella vaginalis Negative (Negative); Trichomoas vaginalis Negative (Negative)
== END ==
PROVIDERS: PCP Internal Medicine; Visit Provider Specialist
DX: N94.9 Unspecified condition associated with female genital organs and menstrual cycle (principal); N89.8 Other specified noninflammatory disorders of vagina
CPT/HCPCS: 81001; 87480; 87510; 87660

== ENCOUNTER → 2022-12-24 15:46 | Outpatient (CLI) | payer MEDICARE, OTHER, SELFPAY ==
[2019-12-12 18:57] VITALS: BMI 27.4
== END ==
PROVIDERS: PCP Internal Medicine; Visit Provider Obstetrics & Gynecology
DX: L29.2 Pruritus vulvae (principal); R30.0 Dysuria
CPT/HCPCS: 87077; 87086; 87186

== ENCOUNTER → 2023-01-15 09:09 | Outpatient (CLI) | payer MEDICARE, OTHER, SELFPAY ==
[2019-12-12 18:57] VITALS: BMI 27.4
--- NOTE | 2023-01-15 | DI.MRI.S_ITS ---
PROCEDURE: MR AB PANCREATIC/MRCP PROTOCOL INDICATIONS: Disease of pancreas, unspecified TECHNIQUE: Coronal HASTE through the abdomen, axial 2-D FLASH in- and [id number], and breath-hold T2 FSE with fat saturation through the biliary system and pancreas. Oblique coronal and axial thin-slice HASTE, radial thick-slab HASTE centered on the extrahepatic bile ducts. Intravenous secretin: Not requested. COMPARISON: Outside Facility, RG, CT ABDOMEN/PELVIS WITH CONTRAST, 03/04/2019, 11:11. FINDINGS: Image quality: Excellent. Liver: No solid mass. Benign hepatic cyst in segment 6. Gallbladder and biliary tree: Cholecystectomy. No biliary dilation. Spleen: Normal size. Pancreas: Diffuse cystic change throughout the pancreas. The pancreatic duct is ectatic, measuring between 4-6 mm. No obstructing mass identified. Adrenal glands: No adrenal nodules. Kidneys: Multiple hepatic cysts within the left kidney, some which contain thin internal septations but no nodularity; Bosniak 1 and 2 cystic masses, requiring no further follow-up. Nodes and vessels: No retroperitoneal or mesenteric adenopathy by size criteria. Aorta and inferior vena cava are normal in size. Bowel and peritoneum: Unenhanced bowel loops are normal in caliber. No free fluid. Lung bases: No basal pleural effusions. Heart size is normal. Bones and soft tissues: No ventral hernias. Bone marrow is of normal overall signal. IMPRESSION: Extensive pancreatic cystic lesions, within ectatic pancreatic duct. Benign renal cysts are also present. 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 Alternatively, findings could also indicate a mixed type IPMN or less likely obstructing mass at the pancreatic head. Dictated by: Arnold Goodwin M.D. on 01/15/2023 at 12:44 Approved by: Arnold Goodwin M.D. on 01/15/2023 at 12:51
== END ==
PROVIDERS: PCP Internal Medicine; Referring Provider Internal Medicine Gastroenterology; Visit Provider Internal Medicine Gastroenterology
DX: K86.9 Disease of pancreas, unspecified (principal); K86.2 Cyst of pancreas; N28.1 Cyst of kidney, acquired
CPT/HCPCS: 74183; A9579

== ENCOUNTER → 2023-02-25 15:01 | Outpatient (CLI) | payer MEDICARE, OTHER, SELFPAY ==
[2023-02-24 14:47] VITALS: BMI 27.4
[2023-02-27 14:41] LABS: Candida species Negative (Negative); Gardnerella vaginalis Negative (Negative); Trichomoas vaginalis Negative (Negative)
== END ==
PROVIDERS: PCP Internal Medicine; Visit Provider Obstetrics & Gynecology
DX: N89.8 Other specified noninflammatory disorders of vagina (principal)
CPT/HCPCS: 87480; 87510; 87660

== ENCOUNTER → 2023-03-11 12:33 | Outpatient (CLI) | payer MEDICARE, OTHER, SELFPAY ==
[2023-02-24 14:47] VITALS: BMI 27.4
[2023-03-11 13:17] LABS: Appearance Urine UA SL CLOUDY; Bilirubin Urine UA NEGATIVE (NEGATIVE); Color Urine UA YELLOW; Glucose Urine UA NEGATIVE (Negative); Ketones Urine UA TRACE (NEGATIVE); Leukocyte Esterase Urine UA 1+ (NEGATIVE); Nitrite Urine UA POSITIVE (Negative); Occult Blood Urine UA NEGATIVE (Negative); Protein Urine UA TRACE (Negative); Specific Gravity Urine UA >=1.030 (1.000-1.035)
[2023-03-11 13:24] LABS: RBC Urine None Seen (0-5/HPF); WBC Urine 5-10/HPF (0-5/HPF)
[2023-03-11 13:25] LABS: Bacteria Urine Moderate (10-30); Culture Indicated Urine Specimen Cultured; Squamous Epithelial Cell Urine 1-5 /HPF (0-5/HPF)
--- NOTE | 2023-03-11 14:59 | DI.RAD.S_ITS ---
PROCEDURE: XR KUB INDICATIONS: Recurrent UTI TECHNIQUE: One view of the abdomen acquired. COMPARISON: [facility], , KUB XRAY (1 VIEW ABDOMEN), 04/13/2015, 8:46. FINDINGS: Surgical changes and devices: Right upper quadrant cholecystectomy clips. Bilateral hip arthroplasty. Single surgical clip overlies the left pelvic soft tissues. Bowel: Bowel gas pattern is normal. Soft tissues: No suspicious abdominal calcifications. Visualized solid organ contours appear normal in size. Bones: No suspicious bony lesions. IMPRESSION: Bowel gas pattern is nonobstructive. Dictated by: Simona Back M.D. on 03/11/2023 at 18:05 Approved by: Simona Back M.D. on 03/11/2023 at 18:06
== END ==
PROVIDERS: PCP Internal Medicine; Referring Provider Specialist; Visit Provider Specialist
DX: N39.0 Urinary tract infection, site not specified (principal)
CPT/HCPCS: 74018; 81001; 87077; 87086; 87186

== ENCOUNTER → 2023-03-19 11:06 | Outpatient (CLI) | payer MEDICARE, OTHER, SELFPAY ==
[2019-12-12 18:57] VITALS: BMI 27.4
[2023-02-24 14:47] VITALS: BMI 27.4
--- NOTE | 2023-03-19 | DI.MG.S_ITS ---
BILATERAL DIGITAL SCREENING MAMMOGRAM 3D/2D WITH CAD: 03/19/2023 CLINICAL: Routine screening. Family history of breast cancer. Comparison is made to exams dated: 01/02/2022 mammogram, 12/30/2020 mammogram, 06/29/2018 mammogram, and 06/26/2017 mammogram - [facility]. Both breasts are heterogeneously dense, which may obscure small masses (category c / 51-75% glandular tissue). Current study was also evaluated with a Computer Aided Detection (CAD) system. There are benign calcifications in both breasts. There also are benign post operative findings in the left breast. No significant masses, calcifications, or other findings are seen in either breast. There has been no significant interval change. IMPRESSION: BENIGN There is no mammographic evidence of malignancy. A 1 year screening mammogram is recommended. Based on the Tyrer Cuzick model (a risk assessment model) the patient's lifetime risk is 3.5% and her 10 year risk is 0.0%. According to the ACR, ACS, and NCCN guidelines, an annual breast MRI exam along with mammogram is recommended if the patient's lifetime risk is 20% or greater. This exam was interpreted at Station ID: [id number]. NOTE: For mammograms, a report in lay terms will be sent to the patient. Approximately 15% of breast malignancies will not be visualized mammographically. In the management of a palpable breast mass, a negative mammogram must not discourage biopsy of a clinically suspicious lesion. Electronically Signed By: Suman breen/leeanne:03/19/2023 16:30:15 copy to: Ashley Ramirez letter sent: Normal Exam ACR BI-RADS Category 2: Benign Finding(s) [id number]
== END ==
LOC: MAMMO 11:07
PROVIDERS: PCP Internal Medicine; Referring Provider Internal Medicine; Visit Provider Internal Medicine
DX: Z12.31 Encounter for screening mammogram for malignant neoplasm of breast (principal); Z80.3 Family history of malignant neoplasm of breast; R92.333 Mammographic heterogeneous density, bilateral breasts
CPT/HCPCS: 77063; 77067

== ENCOUNTER → 2023-03-22 15:20 | Outpatient (CLI) | payer MEDICARE, OTHER, SELFPAY ==
[2023-02-24 14:47] VITALS: BMI 27.4
== END ==
PROVIDERS: PCP Internal Medicine; Visit Provider Nurse Practitioner Family
DX: R30.0 Dysuria (principal); N89.8 Other specified noninflammatory disorders of vagina
CPT/HCPCS: 87086; 87210

== ENCOUNTER → 2023-03-24 15:09 | Outpatient (CLI) | payer MEDICARE, OTHER, SELFPAY ==
[2023-02-24 14:47] VITALS: BMI 27.4
== END ==
PROVIDERS: PCP Internal Medicine; Referring Provider Specialist; Visit Provider Specialist
DX: N39.0 Urinary tract infection, site not specified (principal)
CPT/HCPCS: 87077; 87086; 87186

== ENCOUNTER → 2023-03-25 10:05 | Outpatient (CLI) | payer MEDICARE, OTHER, SELFPAY ==
[2023-03-25 09:40] VITALS: BMI 27.4
[2023-03-25 10:48] LABS: Estimated Glomerular Filt Rate > 60 mL/min (>60)
--- NOTE | 2023-03-25 10:54 | DI.CT.S_ITS ---
PROCEDURE: CT IVP A/P W/WO INDICATIONS: Hematuria TECHNIQUE: Optional 5 mm thick noncontrast images acquired from the diaphragm to the symphysis pubis. After the administration of intravenous contrast, 5 mm thick images acquired from the diaphragm to the symphysis pubis after a 10-minute delay. 2 mm thick coronal and sagittal reformats were then performed of the kidneys and ureters. For radiation dose reduction, the following was used: automated exposure control, adjustment of mA and/or kV according to patient size. COMPARISON: [facility], MR, MR AB PANCREATIC/MRCP PROTOCOL, 01/15/2023, 9:36. FINDINGS: Image quality: Diagnostic Lower chest: Basal scarring and atelectasis. No basal effusions. There are coronary calcifications. Normal heart size. Liver: Right lobe liver cyst. Gallbladder and biliary system: The gallbladder is absent. Biliary system is minimally ectatic, as before. Pancreas: Cystic replacement of the pancreas. This is better evaluated on prior MRI. Spleen: Nonenlarged Adrenals: No adrenal nodules Kidneys: No enhancing solid renal mass is identified. There are numerous left renal cysts, some of which have thin septations. No enhancing nodular component is identified. Some of the cysts have peripheral calcifications. The medial left lower pole cyst has numerous thin septations measuring 3.5 x 2.8 centimeters. No obstructing calcified stone is seen. There are no ureteral filling defects in the proximal and mid portions. The pelvic portions are obscured by metallic artifact, including the UVJ is. Vessels and lymph nodes: The main portal vein is patent. No abdominal aortic aneurysm. No pathologic lymph nodes by size criteria. Bowel and peritoneum: No evidence of small bowel obstruction. No pathologic ascites. Colonic diverticulosis. Body wall: Tiny fat containing umbilical hernia. Pelvis: Bladder is not well evaluated due to metallic artifact. Reproductive organs are also not well evaluated. Suspected right adnexal cyst is present measuring about 3.1 centimeters. Bones: Bilateral hip arthroplasties. No acute findings. IMPRESSION: No solid renal mass or obstructing calcified stone. Numerous left renal cysts, some which have peripheral calcifications. Medial left lower pole cyst (5/88), has numerous thin septations. These are either Bosniak 1, 2, or 2 F. Consider 6 month follow-up. In the setting of hematuria, consider cystoscopy to further evaluate the bladder, which is not well seen on this study. Suspected right adnexal cyst measuring 3.1 centimeters. Other findings as above. Dictated by: Mike Schwartz M.D. on 03/25/2023 at 12:38 Approved by: Mike Schwartz M.D. on 03/25/2023 at 12:46
== END ==
PROVIDERS: PCP Internal Medicine; Referring Provider Specialist; Visit Provider Specialist
DX: N39.0 Urinary tract infection, site not specified (principal); R31.9 Hematuria, unspecified; N28.1 Cyst of kidney, acquired; K57.90 Diverticulosis of intestine, part unspecified, without perforation or abscess without bleeding; I25.10 Atherosclerotic heart disease of native coronary artery without angina pectoris; Z90.49 Acquired absence of other specified parts of digestive tract
CPT/HCPCS: 36415; 74178; 81002; 82565; Q9967

== ENCOUNTER → 2023-04-25 13:43 | Outpatient (CLI) | payer MEDICARE, OTHER, SELFPAY ==
[2023-03-25 09:40] VITALS: BMI 27.4
[2023-04-25 14:20] LABS: Appearance Urine UA SL CLOUDY; Bilirubin Urine UA NEGATIVE (NEGATIVE); Color Urine UA YELLOW; Glucose Urine UA 3+ g/dL (Negative); Ketones Urine UA NEGATIVE (NEGATIVE); Leukocyte Esterase Urine UA NEGATIVE (NEGATIVE); Nitrite Urine UA NEGATIVE (Negative); Occult Blood Urine UA NEGATIVE (Negative); Protein Urine UA NEGATIVE (Negative); Urobilinogen Urine UA 0.2 E.U./dL (0.2)
[2023-04-25 14:21] LABS: Urine Volume 10mL (spun)
[2023-04-25 14:22] LABS: Bacteria Urine None Seen; Culture Indicated Urine Cult Not Indicated; RBC Urine None Seen (0-5/HPF); Squamous Epithelial Cell Urine 10-30 /HPF (0-5/HPF); WBC Urine None Seen (0-5/HPF)
== END ==
PROVIDERS: PCP Internal Medicine; Referring Provider Specialist; Visit Provider Specialist
DX: R39.9 Unspecified symptoms and signs involving the genitourinary system (principal); N39.0 Urinary tract infection, site not specified; Z87.448 Personal history of other diseases of urinary system
CPT/HCPCS: 81001

== ENCOUNTER → 2023-05-23 15:08 | Outpatient (CLI) | payer MEDICARE, OTHER, SELFPAY ==
[2023-03-25 09:40] VITALS: BMI 27.4
--- NOTE | 2023-05-23 15:11 | DI.US.S_ITS ---
PROCEDURE: US PELVIC COMPLETE INDICATIONS: RIGHT OVARIAN CYST FOLLOW UP. LEFT ADNEXA PAIN. TECHNIQUE: Real-time scanning was performed of the pelvic organs, with image documentation. Additional endovaginal scanning was necessary due to incomplete visualization of the adnexal and endometrial structures by transabdominal scanning. COMPARISON: [facility], , US PELVIC COMPLETE, 12/11/2020, 10:20. FINDINGS: Uterus: Anteverted positioning. 4.5 x 2.6 x 1.9 cm. Possible anterior uterine fibroid measures 1.7 x 1.4 x 0.9 cm, previously slightly larger. Endometrium measures 0.3 cm, however combined thickness is 0.4 cm, with suspected internal fluid and debris. Ovaries: Right ovarian cyst without significant septations or soft tissue measures 2.7 x 2.3 cm, unchanged. Left ovary is atrophic at 2 cc. Right ovary measures 9 cc. Other: In the region of pain in left lower quadrant, there is a prominent loop of bowel. IMPRESSION: Prominent loop of bowel is seen at the region of left adnexal pain, if there is further concern, consider further evaluation with CT. Unchanged possible anterior uterine fibroid. Unchanged right ovarian cyst. Nonthickened endometrium, however there is suspected internal fluid and debris. Consider further workup if there is any concern for postmenopausal bleeding. Dictated by: Mike Schwartz M.D. on 05/23/2023 at 16:49 Approved by: Mike Schwartz M.D. on 05/23/2023 at 16:54
== END ==
PROVIDERS: PCP Internal Medicine; Referring Provider Obstetrics & Gynecology; Visit Provider Obstetrics & Gynecology
DX: N83.201 Unspecified ovarian cyst, right side (principal); R10.32 Left lower quadrant pain
CPT/HCPCS: 76830; 76856

== ENCOUNTER → 2023-06-12 10:07 | Outpatient (CLI) | payer MEDICARE, OTHER, SELFPAY ==
[2023-03-25 09:40] VITALS: BMI 27.4
[2023-06-12 11:11] LABS: Alanine Aminotransferase 19 IU/L (<35); Albumin 3.5 g/dL (3.5-5.0); Albumin Globulin Ratio 1.5 (1.0-2.8); Alkaline Phosphatase 77 U/L (38-126); Aspartate Aminotransferase 19 IU/L (14-36); Bilirubin Total 0.9 mg/dL (0.2-1.3); Blood Urea Nitrogen 15 mg/dL (7-17); Calcium 9.1 mg/dL (8.4-10.2); Carbon Dioxide 25 mmol/L (22-32); Chloride 106 mmol/L (98-107); Estimated Glomerular Filt Rate > 60 mL/min (>60); Globulin 2.4 g/dL (1.7-4.1); Glucose 343 mg/dL (80-110); HEMOLYSIS < 15 (0-50); Potassium 4.3 mmol/L (3.4-5.1); Sodium 135 mmol/L (137-145); Total Protein 5.9 g/dL (6.3-8.2)
== END ==
PROVIDERS: PCP Internal Medicine; Referring Provider Internal Medicine Gastroenterology; Visit Provider Internal Medicine Gastroenterology
DX: K86.9 Disease of pancreas, unspecified (principal); R10.10 Upper abdominal pain, unspecified
CPT/HCPCS: 36415; 80053

== ENCOUNTER 2023-06-12 18:13 | Emergency (ER) | payer MEDICARE, OTHER, SELFPAY ==
[2023-03-25 09:40] VITALS: BMI 27.4
[2023-06-12 18:16] VITALS: BP 177/82; PULSE 75; RESP 18; TEMP 36.6; O2SAT 99; BMI 31.8
[2023-06-12 18:29] VITALS: BMI 31.8
--- NOTE | 2023-06-12 18:30 | ED_ITS ---
HPI - Recheck/Abnormal Lab/Rx General Chief Complaint: Recheck/Abnormal Lab/Rx Stated Complaint: high blood sugar, dizziness, urinary problem Time Seen by Provider: 06/12/23 18:26 Source: patient Mode of arrival: Ambulatory History of Present Illness HPI narrative: 82-year-old female with history of hypertension, pancreatic cysts (folowed by GI), pancreatitis presents by private vehicle from home for elevated fasting blood glucose at home. Patient had routine laboratory work done through her GI doctor and the elevated blood glucose was an incidental finding. Patient states that her last laboratory work was 1 year prior and her glucose was normal. She states that she has had blurred vision, increased urination, increased thirst and incidental 10 lb weight loss. She reports 6 months of chronic UTI, she was recently placed on long-term antibiotic therapy by her urologist to prevent these urinary tract infections. She is concerned that the increased urination is also related to a urinary tract infection. Additional concern of patient - she has chronic BLE swelling that seems familial, hwoever they appear to be worsening, and one leg appears larger than the other leg Related Data Home Medications Medication Instructions Recorded Confirmed ascorbic acid (vitamin C) 500 mg 500 mg PO DAILY 09/15/17 05/16/23 capsule heahjyhytioy-rno-twmx-FA-vit K 1 100 ml PO QAM 09/09/18 05/16/23 [Adults Multivitamin] fluocinolone 0.01 % topical 1 applictn topical BID PRN Rash 03/31/19 05/16/23 solution calcium 1 tab PO QAM 12/12/19 05/16/23 filw-O6-lqrjsjbq-inosit-silicon 300 mg-200 unit-37.5 mg tablet (Bone Density Calcium Plus D) Previous Rx's Medication Instructions Recorded cholestyramine (with sugar) 4 gram 4 g PO BID dumping syndrome #348.6 06/12/22 oral powder grams fluticasone propionate 50 1 spray intranasal DAILY #32 grams 06/12/22 mcg/actuation nasal spray,suspension (Flonase Allergy Relief) loratadine 10 mg tablet 10 mg PO DAILY #60 tabs 06/12/22 montelukast 10 mg tablet 10 mg PO DAILY #60 tabs 06/12/22 estradiol 10 mcg vaginal tablet 10 mcg vaginal 2XW Vaginal atrophy 03/21/23 (Vagifem) #24 tabs metformin 500 mg tablet 500 mg PO BID #60 tabs 06/12/23 blood sugar diagnostic (Blood #50 ea 06/13/23 Glucose Test strips) blood-glucose meter #1 ea 06/13/23 lancets #100 ea 06/13/23 Allergies Allergy/AdvReac Type Severity Reaction Status Date / Time adhesive [ADHESIVE] Allergy Mild Rash Verified 05/16/23 08:25 bacitracin [BACITRACIN] Allergy Mild itchy red Verified 05/16/23 08:25 rash latex [LATEX] Allergy Mild RASH Verified 05/16/23 08:25 polymyxin B Allergy Mild itchy red Verified 05/16/23 08:25 [From NEOSPORIN rash ([id number])] neomycin [NEOMYCIN] Allergy Unknown CONTACT Verified 05/16/23 08:25 DERMATITIS hydrocodone [HYDROCODONE] AdvReac Unknown HALLUCINATI Verified 05/16/23 08:25 ON narcotics AdvReac Mild Sensitive, Uncoded 05/16/23 08:25 twilight, dreams about sounds she hears Review of Systems Review of Systems Narrative: Negative except as noted above Patient History Medical History History of hematuria Lower urinary tract symptoms (LUTS) UTI (urinary tract infection) Kidney stones Basal cell carcinoma (BCC) Recurrent UTI Dumping syndrome Obesity (BMI 30.0-34.9) Venous (peripheral) insufficiency History of colonic polyps Osteopenia Right ovarian cyst Mixed hyperlipidemia Brain TIA Papilloma of breast Colorectal polyp detected on colonoscopy Mild intermittent asthma without complication (04/03/15) Migraine without status migrainosus, not intractable (04/03/15) Allergic rhinitis due to pollen (04/03/15) Surgical History History of cholecystectomy Hx of breast biopsy History of total hip replacement (2004) History of total hip replacement (2000) History of tonsillectomy (1961) Family History Brother Arthritis Migraines Mother Heart problem Coronary artery disease Hyperlipidemia Hypertension Inflammatory bowel disease Migraines Sister Arthritis Eczema Inflammatory bowel disease Migraines Father Pneumonia BPH (benign prostatic hyperplasia) Coronary artery disease Grandfather Pneumonia Grandmother Parkinson's disease Social History marital status: household members: spouse Smoking Status: Never smoker alcohol intake: never caffeine: Yes Smoking Status: Never smoker alcohol intake frequency: holidays/special occasions only Substance Use Type: does not use Exam Initial Vital Signs Initial Vital Signs: Vital Signs Temperature 97.9 F 06/12/23 18:16 Pulse Rate 75 06/12/23 18:16 Respiratory Rate 18 06/12/23 18:16 Blood Pressure 177/82 H 06/12/23 18:16 Pulse Oximetry 99 06/12/23 18:16 Oxygen Delivery Method Room Air 06/12/23 18:16 Const: Awake, alert, no acute distress, nontoxic appearing Cardiac: regular rate, regular rhythm RESP: unlabored, clear bilaterally, no wheezing GI: Soft, nontender, nondistended, no rebound, no guarding MSK: Atraumatic, full range of motion, pulses equal Skin: Warm, Dry, intact, no rashes Neuro: AO x3, CN II-XII grossly intact, moves all extremities Course Orders Ordered: Discontinued Medications Sodium Chloride (Normal Saline 0.9%) 1,000 mls @ 1,000 mls/hr IV BOLUS ONE Stop: 06/12/23 19:26 Last Infusion: 06/12/23 19:49 Dose: Infused Documented By: Admin: 06/12/23 18:35 Dose: 1,000 mls/hr Documented By: AMELIA Insulin Human Regular (Insulin Regular 100 Unit/Ml 3 Ml Vial) 5 unit IV NOW ONE Stop: 06/12/23 20:03 Last Admin: 06/12/23 20:16 Dose: 5 unit Documented By: Co-signed By: GILDA Metformin HCl (Metformin Hcl 500 Mg Tablet) 1,000 mg PO NOW ONE Stop: 06/12/23 20:04 Last Admin: 06/12/23 20:18 Dose: 1,000 mg Documented By: Vital Signs Vital signs: Vital Signs - 8 hr 06/12/23 18:16 06/12/23 19:54 06/12/23 20:00 Temperature 97.9 F Pulse Rate 75 61 59 L Respiratory Rate 18 Blood Pressure 177/82 H Pulse Oximetry 99 100 99 Oxygen Delivery Method Room Air 06/12/23 20:01 06/12/23 20:01 06/12/23 20:30 Temperature Pulse Rate 59 L 59 L Respiratory Rate Blood Pressure 188/80 H Pulse Oximetry 99 99 Oxygen Delivery Method Room Air 06/12/23 20:31 06/12/23 20:31 Temperature Pulse Rate 60 Respiratory Rate Blood Pressure 194/88 H Pulse Oximetry 99 Oxygen Delivery Method Room Air MDM - Recheck/Abnormal Lab/Rx Lab Data 06/12/23 18:30 06/12/23 18:30 Labs: Lab Results 06/12/23 06/12/23 Range/Units 18:30 19:47 WBC 7.5 (4.5-11.0) X10^3/uL RBC 4.95 (4.0-5.2) X10^6/uL Hgb 13.6 (12.0-16.0) g/dL Hct 40.2 (36-46) % MCV 81.3 (80-100) fL MCH 27.5 (26-34) PG MCHC 33.8 (30-36) % RDW 14.1 (11.6-14.8) % Plt Count 204 (150-400) X10^3/uL Neut % (Auto) 52.3 (50-75) % Lymph % (Auto) 36.0 (25-40) % [place] % (Auto) 8.9 (3-14) % Eos % (Auto) 2.1 (2-4) % Baso % (Auto) 0.7 (0-2) % Neut # (Auto) 3900 (1350-0366) /uL Lymph # (Auto) 2700 (1660-1621) /uL [place] # (Auto) 700 (0-900) /uL Eos # (Auto) 200 (0-450) /uL Baso # (Auto) 0 (0-100) /uL Sodium 137 (137-145) mmol/L Potassium 4.1 (3.4-5.1) mmol/L Chloride 106 (98-107) mmol/L Carbon Dioxide 24 (22-32) mmol/L BUN 19 H (7-17) mg/dL Creatinine 0.94 (0.52-1.04) mg/dL Estimated GFR > 60 (>60) mL/min BUN/Creatinine Ratio 20.2 (6-22) Glucose 372 H (80-110) mg/dL Calcium 9.0 (8.4-10.2) mg/dL Total Bilirubin 0.5 (0.2-1.3) mg/dL AST 21 (14-36) IU/L ALT 20 (<35) IU/L Alkaline Phosphatase 85 (38-126) U/L Total Protein 6.6 (6.3-8.2) g/dL Albumin 4.0 (3.5-5.0) g/dL Globulin 2.6 (1.7-4.1) g/dL Albumin/Globulin Ratio 1.5 (1.0-2.8) TSH 1.20 (0.47-4.68) uIU/mL Urine Color Yellow Urine Appearance Clear Urine pH 5.0 (4.5-8.0) Ur Specific [place] 1.025 (1.000-1.035) Urine Protein Negative (Negative) Urine Glucose (UA) 3+ H (Negative) g/dL Urine Ketones Trace H (NEGATIVE) Urine Occult Blood Negative (Negative) Urine Nitrate Negative (Negative) Urine Bilirubin Negative (NEGATIVE) Urine Urobilinogen 0.2 (0.2) E.U./dL Ur Leukocyte Esterase Negative (NEGATIVE) Urine RBC 0-1/hpf (0-5/HPF) Urine WBC 0-1/hpf (0-5/HPF) Ur Squamous Epith Cells 5-10 /hpf H (0-5/HPF) Urine Bacteria Occasional (0-1) (None) Ur Culture Indicated? Cult not indicated Vol Urine Centrifuged 10ml (spun) Point of Care Testing Glucose POC 372 MDM Narrative Medical decision making narrative: Mildly symptomatic hyperglycemia. Patient reports ongoing issue with worsening cyst in her pancreas. I do not have access to the GI reports of the cyst, however it is possible that these are related to patient's new diabetes. Laboratory work is significant for WBC count 7.5, hemoglobin 13.6, platelets 204, sodium 137, potassium 4.1, creatinine 0.94, glucose 372. No evidence of DKA. No signs of infection on UA, however it was noted that there is 3+ glucose. On an additional UA taken on 04/25/2023 there was 3+ glucose noted, and so I have a feeling that the patient has had elevated glucose for at least a few months. Patient given IV fluids and dose of insulin to decrease her blood sugar. Patient has follow up with her primary care doctor next week. To bridge her until her appointment we will start on metformin. Since she has a history of recurring urinary tract infections we will avoid Jardiance at this time. Patient counseled on all lab and imaging findings, recommended close follow up with PCP as well as her GI doctor, especially concerning her pancreatic cysts. Discharge Plan Departure Patient Disposition: Home Clinical Impression: Fasting hyperglycemia Instructions: DI for Diabetes Type 2 Activity Restrictions/Additional Instructions: follow up with your PCP. Your medications can be further titrated by your PCP. Prescriptions: New metformin 500 mg tablet 500 mg PO BID Qty: 60 0RF No Action estradiol [Vagifem] 10 mcg tablet 10 mcg vaginal 2XW Qty: 24 3RF (DME) blood-glucose meter Kit See Rx Instructions .Route Qty: 1 0RF Rx Instructions: As directed (DME) Blood Glucose Test Strip See Rx Instructions .Route Qty: 50 0RF Rx Instructions: As directed (DME) lancets Misc See Rx Instructions .Route Qty: 100 0RF Rx Instructions: As directed fluocinolone 0.01 % solution 1 applictn TOP BID PRN (Reason: Rash) fluticasone propionate [Flonase Allergy Relief] 50 mcg/actuation spray,suspension 1 spray intranasal DAILY Qty: 32 3RF Rx Instructions: administer into each nostril loratadine 10 mg tablet 10 mg PO DAILY Qty: 60 3RF montelukast 10 mg tablet 10 mg PO DAILY Qty: 60 3RF cholestyramine (with sugar) 4 gram powder 4 g PO BID Qty: 348.6 1RF Rx Instructions: administer w/meal; avoid other meds within 1hr before or 4-6hr after dose kzyjfwoogybu-iad-tsxa-FA-vit K 1 100 ml PO QAM ascorbic acid (vitamin C) 500 mg capsule 500 mg PO DAILY Bone Density Calcium Plus D 300-200-37.5 mg-unit-mg Tablet 1 tab PO QAM Referrals: Rafat Diaz MD [Primary Care Provider] - Stand Alone Forms: Patient Portal/API
[2023-06-12] MEDS: SODIUM CHLORIDE 0.9% 1,000 ML 1000 ML IV (18:35)
--- NOTE | 2023-06-12 18:39 | DI.US.S_ITS ---
PROCEDURE: US PERIPH VENOUS LOW EXTREM BI INDICATIONS: BLE SWELLING TECHNIQUE: Real-time imaging, as well as color and pulse Doppler interrogation, were performed of the deep veins of both legs from the inguinal ligament to the popliteal fossa, with documentation of the visualized calf veins. COMPARISON: None. FINDINGS: Right: The common femoral, femoral, popliteal, and the visualized calf veins are normally compressible, and free of intraluminal thrombus. Color and pulse Doppler demonstrate normal phasic intravascular flow. There is normal augmentation response to distal compression maneuver. Left: The common femoral, femoral, popliteal, and the visualized calf veins are normally compressible, and free of intraluminal thrombus. Color and pulse Doppler demonstrate normal phasic intravascular flow. There is normal augmentation response to distal compression maneuver. IMPRESSION: No findings of deep venous thrombosis in either lower extremity. Dictated by: Jeremie Olson M.D. on 06/12/2023 at 19:54 Approved by: Jeremie Olson M.D. on 06/12/2023 at 19:55
[2023-06-12 18:56] LABS: Add Manual Diff / Slide Review NO; Basophils Absolute Auto 0 /uL (0-100); Basophils Percent Auto 0.7 % (0-2); Eosinophils Absolute Auto 200 /uL (0-450); Eosinophils Percent Auto 2.1 % (2-4); Hematocrit 40.2 % (36-46); Hemoglobin 13.6 g/dL (12.0-16.0); Lymphocytes Absolute Auto 2700 /uL (1100-4500); Mean Corpuscular HGB Conc 33.8 % (30-36); Mean Corpuscular Hemoglobin 27.5 PG (26-34); Mean Corpuscular Volume 81.3 fL (80-100); Monocytes Absolute Auto 700 /uL (0-900); Monocytes Percent Auto 8.9 % (3-14); Neutrophils Absolute Auto 3900 /uL (1500-7000); Neutrophils Percent Auto 52.3 % (50-75); Platelet Count 204 X10^3/uL (150-400); Red Blood Cell Count 4.95 X10^6/uL (4.0-5.2); Red Cell Distribution Width 14.1 % (11.6-14.8); White Blood Cell Count 7.5 X10^3/uL (4.5-11.0)
[2023-06-12 19:13] LABS: Chloride 106 mmol/L (98-107); HEMOLYSIS < 15 (0-50); Potassium 4.1 mmol/L (3.4-5.1); Sodium 137 mmol/L (137-145)
[2023-06-12 19:27] LABS: Alanine Aminotransferase 20 IU/L (<35); Albumin Globulin Ratio 1.5 (1.0-2.8); Alkaline Phosphatase 85 U/L (38-126); Aspartate Aminotransferase 21 IU/L (14-36); BUN Creatinine Ratio 20.2 (6-22); Bilirubin Total 0.5 mg/dL (0.2-1.3); Blood Urea Nitrogen 19 mg/dL (7-17); Carbon Dioxide 24 mmol/L (22-32); Estimated Glomerular Filt Rate > 60 mL/min (>60); Globulin 2.6 g/dL (1.7-4.1); Glucose 372 mg/dL (80-110); Total Protein 6.6 g/dL (6.3-8.2)
[2023-06-12 19:54] VITALS: PULSE 61; O2SAT 100
[2023-06-12 20:00] VITALS: PULSE 59; O2SAT 99
[2023-06-12 20:00] LABS: Appearance Urine UA CLEAR; Bilirubin Urine UA NEGATIVE (NEGATIVE); Color Urine UA YELLOW; Glucose Urine UA 3+ g/dL (Negative); Ketones Urine UA TRACE (NEGATIVE); Leukocyte Esterase Urine UA NEGATIVE (NEGATIVE); Nitrite Urine UA NEGATIVE (Negative); Occult Blood Urine UA NEGATIVE (Negative); Protein Urine UA NEGATIVE (Negative); Specific Gravity Urine UA 1.025 (1.000-1.035); Urobilinogen Urine UA 0.2 E.U./dL (0.2)
[2023-06-12 20:01] VITALS: BP 188/80; PULSE 59; O2SAT 99
[2023-06-12 20:07] LABS: Bacteria Urine Occasional (0-1); Culture Indicated Urine Cult Not Indicated; RBC Urine 0-1/HPF (0-5/HPF); Squamous Epithelial Cell Urine 5-10 /HPF (0-5/HPF); Urine Volume 10mL (spun); WBC Urine 0-1/HPF (0-5/HPF)
[2023-06-12] MEDS: INSULIN REGULAR 100 UNIT/ML 3 ML VIAL IV (20:16)
[2023-06-12] MEDS: METFORMIN HCL 500 MG TABLET 1000 MG PO (20:18)
[2023-06-12 20:30] VITALS: PULSE 59; O2SAT 99
[2023-06-12 20:31] VITALS: BP 194/88; PULSE 60; O2SAT 99
== END 2023-06-12 20:57 | disposition home or self-care (01) ==
PROVIDERS: Emergency Provider Emergency Medicine; PCP Internal Medicine
DX: E11.65 Type 2 diabetes mellitus with hyperglycemia (principal); R60.9 Edema, unspecified; Z79.899 Other long term (current) drug therapy; R10.10 Upper abdominal pain, unspecified; K86.9 Disease of pancreas, unspecified
CPT/HCPCS: 36415; 80053; 81001; 82962; 84443; 85025; 93005; 93010; 93970; 96361; 96374; 99284

== ENCOUNTER → 2023-06-14 10:05 | Outpatient (CLI) | payer MEDICARE, OTHER, SELFPAY ==
[2023-03-25 09:40] VITALS: BMI 27.4
[2023-06-14 11:24] LABS: Glucose 271 mg/dL (80-110)
== END ==
PROVIDERS: PCP Internal Medicine; Referring Provider Internal Medicine; Visit Provider Internal Medicine
DX: R73.01 Impaired fasting glucose (principal)
CPT/HCPCS: 36415; 82947; 83036

== ENCOUNTER → 2023-06-20 08:58 | Outpatient (CLI) | payer MEDICARE, OTHER, SELFPAY ==
[2023-03-25 09:40] VITALS: BMI 27.4
[2023-06-20 11:05] LABS: Cortisol AM (Before 10AM) 15.4 ug/dL (4.46-22.7)
[2023-06-21 08:09] LABS: C Peptide 2.4 ng/mL (1.1-4.4)
== END ==
PROVIDERS: PCP Internal Medicine; Referring Provider Internal Medicine; Visit Provider Internal Medicine
DX: E11.69 Type 2 diabetes mellitus with other specified complication (principal); E78.5 Hyperlipidemia, unspecified
CPT/HCPCS: 36415; 82533; 84681

== ENCOUNTER → 2023-07-01 15:51 | Outpatient (CLI) | payer MEDICARE, OTHER, SELFPAY ==
[2023-03-25 09:40] VITALS: BMI 27.4
[2023-07-01 17:01] LABS: Erythrocyte Sedimentation Rate 7 MM/HR (0-20)
[2023-07-01 17:25] LABS: High Sensitivity CRP - Cardiac 1.3 mg/L (1.0-3.0)
[2023-07-01 17:28] LABS: Alanine Aminotransferase 25 IU/L (<35); Albumin 4.3 g/dL (3.5-5.0); Albumin Globulin Ratio 1.7 (1.0-2.8); Alkaline Phosphatase 65 U/L (38-126); Aspartate Aminotransferase 26 IU/L (14-36); BUN Creatinine Ratio 21.6 (6-22); Bilirubin Total 0.5 mg/dL (0.2-1.3); Blood Urea Nitrogen 16 mg/dL (7-17); Calcium 9.5 mg/dL (8.4-10.2); Carbon Dioxide 23 mmol/L (22-32); Chloride 108 mmol/L (98-107); Estimated Glomerular Filt Rate > 60 mL/min (>60); Globulin 2.5 g/dL (1.7-4.1); Glucose 154 mg/dL (80-110); HEMOLYSIS < 15 (0-50); Sodium 139 mmol/L (137-145); Total Protein 6.8 g/dL (6.3-8.2)
[2023-07-01 18:12] LABS: Thyroid Stimulating Hormone 1.73 uIU/mL (0.47-4.68)
[2023-07-03 18:06] LABS: SS A Ro Sjogrens Antibody < 0.2 AI (0.0-0.9); SS B La Sjogrens Antibody < 0.2 AI (0.0-0.9)
== END ==
PROVIDERS: PCP Ophthalmology; Referring Provider Internal Medicine Gastroenterology; Visit Provider Internal Medicine Gastroenterology
DX: H57.11 Ocular pain, right eye (principal); E11.9 Type 2 diabetes mellitus without complications; H16.223 Keratoconjunctivitis sicca, not specified as Sjogren's, bilateral; R10.10 Upper abdominal pain, unspecified; K86.9 Disease of pancreas, unspecified
CPT/HCPCS: 36415; 80053; 84443; 85651; 86038; 86140; 86235

== ENCOUNTER 2023-08-12 10:07 | Day surgery (SDC) | payer MEDICARE, OTHER, SELFPAY ==
[2023-03-25 09:40] VITALS: BMI 27.4
[2023-08-12] MEDS: LACTATED RINGERS 1,000 ML 42 ML IV (11:42)
[2023-08-12 11:56] VITALS: BP 156/91; PULSE 80; RESP 16; TEMP 36.4; O2SAT 98
--- NOTE | 2023-08-12 12:31 | P.HP_ITS ---
History of Present Illness History of Present Illness Date Patient Seen: 08/12/23 Time Patient Seen: 12:31 Chief complaint: Colonoscopy Narrative: 82-year-old woman personal history of colonic polyps here for screening colonoscopy. Last colonoscopy 5 years ago. No abdominal concerns today. [facility] Medical History DM type 2 with diabetic dyslipidemia History of hematuria Kidney stones Basal cell carcinoma (BCC) Recurrent UTI Dumping syndrome Obesity (BMI 30.0-34.9) Venous (peripheral) insufficiency History of colonic polyps Osteopenia Right ovarian cyst Mixed hyperlipidemia Brain TIA Papilloma of breast Colorectal polyp detected on colonoscopy Mild intermittent asthma without complication (04/03/15) Migraine without status migrainosus, not intractable (04/03/15) Allergic rhinitis due to pollen (04/03/15) Surgical History History of cholecystectomy Hx of breast biopsy History of total hip replacement (2004) History of total hip replacement (2000) History of tonsillectomy (1961) Family History Brother Arthritis Migraines Mother Heart problem Coronary artery disease Hyperlipidemia Hypertension Inflammatory bowel disease Migraines Sister Arthritis Eczema Inflammatory bowel disease Migraines Father Pneumonia BPH (benign prostatic hyperplasia) Coronary artery disease Grandfather Pneumonia Grandmother Parkinson's disease Social History marital status: household members: spouse Smoking Status: Never smoker alcohol intake: never caffeine: Yes Meds Home Medications and Allergies Home Medications Medication Instructions Recorded Confirmed Type ascorbic acid (vitamin C) 500 mg 500 mg PO DAILY 09/15/17 08/12/23 History capsule scykgmguebdc-vud-tklk-FA-vit K 1 100 ml PO QAM 09/09/18 08/12/23 History [Adults Multivitamin] fluocinolone 0.01 % topical 1 applictn topical BID PRN Rash 03/31/19 08/12/23 History solution calcium 1 tab PO QAM 12/12/19 08/12/23 History bwhn-K6-abnbzmsy-inosit-silicon 300 mg-200 unit-37.5 mg tablet (Bone Density Calcium Plus D) cholestyramine (with sugar) 4 gram 4 g PO BID dumping syndrome #348.6 06/12/22 08/12/23 Rx oral powder grams fluticasone propionate 50 1 spray intranasal DAILY #32 grams 06/12/22 08/12/23 Rx mcg/actuation nasal spray,suspension (Flonase Allergy Relief) loratadine 10 mg tablet 10 mg PO DAILY #60 tabs 06/12/22 08/12/23 Rx montelukast 10 mg tablet 10 mg PO DAILY #60 tabs 06/12/22 08/12/23 Rx estradiol 10 mcg vaginal tablet 10 mcg vaginal 2XW Vaginal atrophy 03/21/23 08/12/23 Rx (Vagifem) #24 tabs blood-glucose meter #1 ea 06/13/23 07/15/23 Rx metformin 500 mg tablet 500 mg PO BID #180 tabs 07/15/23 08/12/23 Rx blood sugar diagnostic (Accu-Chek #100 ea 07/29/23 Rx Guide test strips) lancets (Accu-Chek Softclix #100 ea 07/29/23 Rx Lancets) empagliflozin 25 mg tablet 25 mg PO DAILY #90 tabs 08/07/23 08/12/23 Rx (Jardiance) Allergies Allergy/AdvReac Type Severity Reaction Status Date / Time adhesive [ADHESIVE] Allergy Mild Rash Verified 07/15/23 08:29 bacitracin [BACITRACIN] Allergy Mild itchy red Verified 07/15/23 08:29 rash latex [LATEX] Allergy Mild RASH Verified 07/15/23 08:29 polymyxin B Allergy Mild itchy red Verified 07/15/23 08:29 [From NEOSPORIN rash ([id number])] neomycin [NEOMYCIN] Allergy Unknown CONTACT Verified 07/15/23 08:29 DERMATITIS hydrocodone [HYDROCODONE] AdvReac Unknown HALLUCINATI Verified 07/15/23 08:29 ON narcotics AdvReac Mild Sensitive, Uncoded 07/15/23 08:29 twilight, dreams about sounds she hears Exam Vital Signs (past 8 hours): - 08/12/23 11:56 Temperature 97.5 F L Pulse Rate 80 Respiratory Rate 16 Blood Pressure 156/91 H Pulse Oximetry 98 Oxygen Delivery Method Room Air Oxygen Delivery Method Room Air Narrative Exam Narrative: General elderly woman alert oriented no acute distress Chest nonlabored respiration Extremities warm well perfused Assessment & Plan Assessment & Plan narrative: The patient requires colorectal screening and colonoscopy is recommended. Technical details were discussed. Risks, benefits, alternatives explained. Risks including but not limited to myocardial infarction, aspiration, bleeding, pain, missed lesion, incomplete examination, need for further radiographic studies, intestinal injury, and need for major abdominal surgery were discussed. All questions were answered to their satisfaction, and they are in agreement with this plan.
[2023-08-12 13:00] VITALS: BP 118/65; PULSE 68; RESP 12; TEMP 36.8; O2SAT 96
[2023-08-12 13:05] VITALS: BP 116/66; PULSE 71; RESP 21; O2SAT 96
--- NOTE | 2023-08-12 13:09 | P.OP.COLON_ITS ---
Operative Date/Time/Diagnoses Date of procedure: 08/12/23 Time of procedure: 13:09 Pre-op diagnosis: Colorectal screening Procedure & Clinicians Study performed: Screening colonoscopy Same procedure as scheduled: Yes Indications: Colorectal screening Surgeon: Cleve Quiros Procedure Notes Procedure in detail: The history and physical was performed/updated and the patient is ASA class is 2. The procedure was discussed in detail with the patient. Potential risks co mplications including infection, bleeding, missed diagnosis, perforation, need for surgery, and were explained. Their questions were answered and informed consent was obtained. Patient was brought to the procedure room and placed standard monitoring equipment. The patient's vital signs were monitored continuously throughout the entire procedure. Prior to starting time-out was performed. The patient was placed in the left lateral recumbent position. Procedural sedation was administered by anesthesia. Examination began with a thorough inspection of the perianal area there was no evidence of fissures, fistulae, external hemorrhoids or cutaneous malignancy. The colonoscopy scope was then placed into the anal canal and was advanced to the cecum, which was identified by the ileocecal valve, the appendiceal orifice and the confluence of the taenia. The scope was then slowly withdrawn examining colon thoroughly in all directions, irrigating it of any residual stool. The scope was retroflexed within the rectum The patient tolerated the procedure well. They will be discharged once criteria are met. The prep was of good/excellent quality. The withdrawl time was 6 minutes. FINDINGS * No polyps. * Mild diverticulosis * Internal hemorrhoids Specimen(s): none sent Impression: Diverticulosis Post-procedure Recommendations: High fiber diet Disposition: same day surgery
[2023-08-12 13:10] VITALS: BP 111/88; PULSE 74; RESP 20; O2SAT 98
[2023-08-12 13:17] VITALS: BP 113/79; PULSE 71; RESP 23; O2SAT 97
== END 2023-08-12 13:26 | disposition home or self-care (01) ==
PROVIDERS: PCP Internal Medicine; Referring Provider Surgery; Visit Provider Surgery
PROC: 0DJD8ZZ Inspection of Lower Intestinal Tract, Via Natural or Artificial Opening Endoscopic (ICD-10-PCS; CPT 45378; principal; 2023-08-12 11:45)
DX: Z12.11 Encounter for screening for malignant neoplasm of colon (principal); K57.30 Diverticulosis of large intestine without perforation or abscess without bleeding; K64.8 Other hemorrhoids
CPT/HCPCS: G0121; J2704

== ENCOUNTER → 2023-08-14 11:47 | Outpatient (CLI) | payer MEDICARE, OTHER, SELFPAY ==
[2023-03-25 09:40] VITALS: BMI 27.4
[2023-08-20 12:10] LABS: Pancreatic Elastase, Fecal 196 (>200)
== END ==
PROVIDERS: PCP Internal Medicine; Referring Provider Internal Medicine Gastroenterology; Visit Provider Internal Medicine Gastroenterology
DX: K86.9 Disease of pancreas, unspecified (principal)
CPT/HCPCS: 82656

== ENCOUNTER → 2023-08-18 15:33 | Outpatient (CLI) | payer MEDICARE, OTHER, SELFPAY ==
[2023-03-25 09:40] VITALS: BMI 27.4
--- NOTE | 2023-08-18 15:36 | DI.MRI.S_ITS ---
PROCEDURE: MR AB PANCREATIC/MRCP PROTOCOL INDICATIONS: Cyst of pancreas TECHNIQUE: Coronal HASTE through the abdomen, axial 2-D FLASH in- and ubv-kt-xpyog, and breath-hold T2 FSE with fat saturation through the biliary system and pancreas. Oblique coronal and axial thin-slice HASTE, radial thick-slab HASTE centered on the extrahepatic bile ducts. Intravenous secretin: Not requested. COMPARISON: Outside Facility, RG, CT ABDOMEN/PELVIS WITH CONTRAST, 03/04/2019, 11:11. [facility], MR, MR AB PANCREATIC/MRCP PROTOCOL, 01/15/2023, 9:36. FINDINGS: Image quality: Diagnostic Lower chest: Scattered scarring and atelectasis. No pleural effusions. Lungs are not well evaluated on MRI. No hiatal hernia. Normal heart size Liver: Right lobe liver cyst again seen. No suspicious hypervascular lesion. Gallbladder and biliary system: No pathologic biliary ductal dilation. Gallbladder is not seen Pancreas: Innumerable cystic replacement of the parenchyma as before the largest focal cysts at the tail measures up to 2.5 cm, slightly enlarged compared to 2022 in 2019 there are thin septations. Spleen: Nonenlarged Adrenals: No discrete nodules. Kidneys: Numerous left renal cysts. No solid enhancing soft tissue nodule. There are thin enhancing septations. No hydronephrosis. Vessels and lymph nodes: No pathologic lymph nodes by size criteria. The main portal vein is patent. No abdominal aortic aneurysm. Bowel and peritoneum: No evidence of small bowel obstruction. No pathologic ascites. Body wall: Unremarkable Bones: No acute or suspicious osseous finding. There are degenerative changes. 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 The largest cyst at the tail measures up to 2.5 cm, slightly increased in size compared to 2022 and 2018 imaging. Consider continued imaging follow-up if intervention is not pursued. Numerous left renal cysts are also present. Above differential includes cystic congenital disorder such as VHL, sequelae of prior inflammation, or indolent cystic neoplasms. Dictated by: Mike Schwartz M.D. on 08/18/2023 at 16:54 Approved by: Mike Schwartz M.D. on 08/18/2023 at 17:03
== END ==
PROVIDERS: PCP Internal Medicine; Referring Provider Internal Medicine Gastroenterology; Visit Provider Internal Medicine Gastroenterology
DX: K86.2 Cyst of pancreas (principal); K76.89 Other specified diseases of liver; N28.1 Cyst of kidney, acquired
CPT/HCPCS: 74183; A9579

== ENCOUNTER → 2023-09-10 09:40 | Outpatient (CLI) | payer MEDICARE, OTHER, SELFPAY ==
[2023-03-25 09:40] VITALS: BMI 27.4
--- NOTE | 2023-09-24 09:23 | DIAB.MNT ---
Initial Diabetes Medical Nutrition Therapy Assessment Name: Berta Perez Date: 09/10/23 Time: 10- Dx: Type II Diabetes Berta presents for initial Dm visit. Reports newly dx with T2Dm in 06/2023 with recent hgA1c of 12%. Endorses FH of Dm with siblings. Reports PMH of pancreatitis and parncreatic cysts. Reports she thinks her dx may be more r/t T3c. Has attended DM community class. Reports eating two meals per day. Nutrition hx significant for dumping syndrome, which she report FH with mother and sister. H/o cholecystectomy. States more recently diarrhea has impacted her quality of life. She is tearful today discussing urgent nature of her BM and often not making it to the toilet. Has had Cholestyranine rx'd by PCP. She is weary of trying this as she feels it may not help. Home makes bread with bulgar and flax Taking low dose Metformin, however does not think this has made diarrhea worse. Diet Recall: 1030a: egg, pakistani hicks with toast OR fruit yogurt eggs and milk OR egg/ham sn: nothing or orange or cheese 330p: meat and veg 12oz x 6 water, 1c coffee black or little milk Anthropometrics: Ht: 66 Wt: 194# 07/2023 Physical Activity: has treadmill she is not currently using. Has stationary bike as well. Reports need for TKA but has little pain and not wanting sx. Self-Monitoring Blood Glucose: Checks FBG and some pc. All FBG slightly elevated. 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 History of colonic polyps History of hematuria Kidney stones Migraine without status migrainosus, not intractable (04/03/15) Mild intermittent asthma without complication (04/03/15) Mixed hyperlipidemia Obesity (BMI 30.0-34.9) Osteopenia Papilloma of breast Left Recurrent UTI Right ovarian cyst Venous (peripheral) insufficiency Nutrition Rx: Carbohydrates: Meal: 30g Snack:15-30g Nutrition Diagnosis: - Food and nutrition related knowledge deficit r/t new dx of diabetes aeb hgA1c >6.5% - Physical inactivity r/t stage of change preparation aeb pt report Intervention: This participant was very receptive. Provided appropriate educational handouts. Discussed the following topics: Completed intake assessment. Discussed barriers to care. Pathophysiology of T2DM v T1 v T3c Plate Method, impact of macronutrients on blood sugar, meal timing, pairing macronutrients and spreading out carbohydrates for better blood glucose management Recommended servings for carbohydrates at meals and snacks GI MNT: diarrhea (fats and fiber) Dumping syndrome etiologies Role of physical activity and following provider guidelines for safety Created SMART goals for patient self-care and success. Goals: Try Cholestyranine on a weekend when home Use stationary bike Try HS paired snack Follow-up: [facility] follow-up in 4 weeks Lynne Vaca RDN, [facility] Certified Diabetes [facility] and [employer] P: [phone] Thank you for this referral
== END ==
PROVIDERS: PCP Internal Medicine; Referring Provider Internal Medicine
DX: E11.9 Type 2 diabetes mellitus without complications (principal); Z79.84 Long term (current) use of oral hypoglycemic drugs; Z71.3 Dietary counseling and surveillance
CPT/HCPCS: 97802

== ENCOUNTER → 2023-10-13 12:08 | Outpatient (CLI) | payer MEDICARE, OTHER, SELFPAY ==
[2023-03-25 09:40] VITALS: BMI 27.4
[2023-10-13 12:58] LABS: Appearance Urine UA CLEAR; Bilirubin Urine UA NEGATIVE (NEGATIVE); Color Urine UA YELLOW; Glucose Urine UA NEGATIVE (Negative); Ketones Urine UA NEGATIVE (NEGATIVE); Leukocyte Esterase Urine UA 1+ (NEGATIVE); Nitrite Urine UA POSITIVE (Negative); Occult Blood Urine UA NEGATIVE (Negative); Protein Urine UA NEGATIVE (Negative); Specific Gravity Urine UA 1.025 (1.000-1.035); Urobilinogen Urine UA 0.2 E.U./dL (0.2)
[2023-10-13 13:14] LABS: pH Urine UA 5.5 (4.5-8.0)
[2023-10-13 13:39] LABS: Bacteria Urine Many (>30); Culture Indicated Urine Specimen Cultured; RBC Urine None Seen (0-5/HPF); Squamous Epithelial Cell Urine 1-5 /HPF (0-5/HPF); Urine Volume 10mL (spun); WBC Urine 10-30/HPF (0-5/HPF)
== END ==
PROVIDERS: PCP Internal Medicine; Referring Provider Internal Medicine; Visit Provider Internal Medicine
DX: R39.15 Urgency of urination (principal); R30.0 Dysuria
CPT/HCPCS: 81001; 87077; 87086

== ENCOUNTER → 2023-10-20 09:34 | Outpatient (CLI) | payer MEDICARE, OTHER, SELFPAY ==
[2023-03-25 09:40] VITALS: BMI 27.4
[2023-10-20 10:07] LABS: Hemoglobin A1C% w Est Avg Glu 6.3 % (4.0-6.0)
[2023-10-20 10:16] LABS: Amylase 85 U/L (30-110); Blood Urea Nitrogen 19 mg/dL (7-17); Calcium 9.4 mg/dL (8.4-10.2); Carbon Dioxide 21 mmol/L (22-32); Chloride 107 mmol/L (98-107); Estimated Glomerular Filt Rate 49 mL/min (>60); Glucose 158 mg/dL (80-110); HEMOLYSIS < 15 (0-50); Lipase 549 U/L (23-300); Potassium 4.4 mmol/L (3.4-5.1); Sodium 135 mmol/L (137-145)
== END ==
PROVIDERS: PCP Internal Medicine; Referring Provider Internal Medicine; Visit Provider Internal Medicine
DX: E11.69 Type 2 diabetes mellitus with other specified complication (principal); E78.5 Hyperlipidemia, unspecified; K86.3 Pseudocyst of pancreas; K85.90 Acute pancreatitis without necrosis or infection, unspecified
CPT/HCPCS: 36415; 80048; 82150; 83036; 83690

== ENCOUNTER → 2023-10-24 10:54 | Outpatient (CLI) | payer MEDICARE, OTHER, SELFPAY ==
[2023-10-22 09:08] VITALS: BMI 27.4
--- NOTE | 2023-12-09 10:16 | DIAB.MNTFU ---
Follow-up Diabetes Medical Nutrition Therapy Assessment Name: Berta Perez Date: 10/24/23 Time: 11a-12p Dx: Type II Diabetes Berta presents for follow-up Dm visit. Reports newly dx with T2Dm in 06/2023 with hgA1c of 12% improved to 6.3% more recently. Endorses FH of Dm with siblings. Reports PMH of pancreatitis and parncreatic cysts. Reports she thinks her dx may be more r/t T3c. Taking fiber supplement for a couple weeks and feels this is helping with GI. Less liquid BM per report, though still stoft. States she feels she gets more warning before BM now. Avoiding artificial sweeteners, which cause dumping syndrom. Endorses more formed type4 on bristol chart. wants to see endocrine for potential type 3c diabetes. Not wanting to take statin due to worring about drug induced panreatitis per report. No recent LDL to review. Has GI appt in [place] 10/31. States she is not taking Jardiance, but is taking full dose Metformin XR. Anthropometrics: Ht: 66 Wt: 179# reported 194# 07/2023 Physical Activity: has treadmill she is not currently using. Has stationary bike as well. Reports need for TKA but has little pain and not wanting sx. Self-Monitoring Blood Glucose: Checks FBG and some pc. All FBG slightly elevated, but improved from last visit. 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 History of colonic polyps History of hematuria Kidney stones Migraine without status migrainosus, not intractable (04/03/15) Mild intermittent asthma without complication (04/03/15) Mixed hyperlipidemia Obesity (BMI 30.0-34.9) Osteopenia Papilloma of breast Left Recurrent UTI Right ovarian cyst Venous (peripheral) insufficiency Nutrition Rx: Carbohydrates: Meal: 30g Snack:15-30g Nutrition Diagnosis: - Food and nutrition related knowledge deficit r/t new dx of diabetes aeb hgA1c >6.5%- improved - Physical inactivity r/t stage of change preparation aeb pt report - in progress Intervention: This participant was very receptive. Provided appropriate educational handouts. Discussed the following topics: BG review and trends Steens chart and impact of fiber on BG Impact of statin on risk of heart attack and stroke Physical activity recs and barriers hgA1c improvement and impact on complication risk reduction Created SMART goals for patient self-care and success. Goals: Try Cholestyranine on a weekend when home- not met Use stationary bike- in progress Try HS paired snack - met Try next dose up of fiber supplement- new Follow-up: ESTELLE [facility]INA follow-up prn Lynne Vaca RDN, [facility] Certified Diabetes Care and Secretary To Board Of Commissioners P: [phone] Thank you for this referral
== END ==
PROVIDERS: PCP Internal Medicine; Referring Provider Internal Medicine
DX: E11.9 Type 2 diabetes mellitus without complications (principal); Z71.3 Dietary counseling and surveillance; Z79.84 Long term (current) use of oral hypoglycemic drugs
CPT/HCPCS: 97803

== ENCOUNTER → 2024-01-21 09:45 | Outpatient (CLI) | payer MEDICARE, OTHER, SELFPAY ==
[2023-10-22 09:08] VITALS: BMI 27.4
[2024-01-21 11:01] LABS: Aspartate Aminotransferase 18 IU/L (14-36); BUN Creatinine Ratio 23.9 (6-22); Blood Urea Nitrogen 22 mg/dL (7-17); Calcium 9.7 mg/dL (8.4-10.2); Carbon Dioxide 20 mmol/L (22-32); Chloride 110 mmol/L (98-107); Cholesterol 185 mg/dL (140-199); Estimated Glomerular Filt Rate > 60 mL/min (>60); Glucose 162 mg/dL (80-110); HDL Cholesterol 51 mg/dL (40-60); HEMOLYSIS < 15 (0-50); LDL Cholesterol Calculated 109 mg/dL (<100); Potassium 4.3 mmol/L (3.4-5.1); Sodium 139 mmol/L (137-145); Triglycerides 124 mg/dL (35-150)
[2024-01-21 11:07] LABS: Creatinine Urine Random 94.83 mg/dL
[2024-01-21 11:12] LABS: Microalbumin Urine Random 1.6 mg/dL (0-1.6)
[2024-01-21 11:18] LABS: Microalbumi Creatinin Ratio Ur 59.3 ug/mg CR (<30)
== END ==
LOC: LAB 09:47
PROVIDERS: PCP Internal Medicine; Referring Provider Internal Medicine; Visit Provider Internal Medicine
DX: E11.69 Type 2 diabetes mellitus with other specified complication (principal); E78.2 Mixed hyperlipidemia; E66.9 Obesity, unspecified; Z68.30 Body mass index [BMI] 30.0-30.9, adult
CPT/HCPCS: 36415; 80048; 80061; 82043; 82570; 83036; 84450

== ENCOUNTER → 2024-02-11 13:14 | Outpatient (CLI) | payer MEDICARE, OTHER, SELFPAY ==
[2023-10-22 09:08] VITALS: BMI 27.4
[2024-02-17 09:10] LABS: Ca oxalate dihydrate 20 % (.); Ca oxalate monohydr 80 % (.); Size 3x3 mm (.)
== END ==
PROVIDERS: PCP Internal Medicine; Visit Provider Urology
DX: N39.0 Urinary tract infection, site not specified (principal); N95.2 Postmenopausal atrophic vaginitis; N28.1 Cyst of kidney, acquired; N39.41 Urge incontinence; Z87.442 Personal history of urinary calculi
CPT/HCPCS: 82365; 99214

== ENCOUNTER → 2024-04-05 10:35 | Outpatient (CLI) | payer MEDICARE, OTHER, SELFPAY ==
[2023-10-22 09:08] VITALS: BMI 27.4
[2024-04-05 11:52] LABS: Aspartate Aminotransferase 20 IU/L (14-36); BUN Creatinine Ratio 23.1 (6-22); Blood Urea Nitrogen 21 mg/dL (7-17); Calcium 9.6 mg/dL (8.4-10.2); Carbon Dioxide 23 mmol/L (22-32); Chloride 106 mmol/L (98-107); Cholesterol 176 mg/dL (140-199); Estimated Glomerular Filt Rate > 60 mL/min (>60); Glucose 188 mg/dL (80-110); HDL Cholesterol 51 mg/dL (40-60); HEMOLYSIS < 15 (0-50); LDL Cholesterol Calculated 99 mg/dL (<100); Potassium 4.1 mmol/L (3.4-5.1); Sodium 138 mmol/L (137-145); Triglycerides 132 mg/dL (35-150)
[2024-04-05 11:54] LABS: Estimated Glomerular Filt Rate > 60 mL/min (>60)
[2024-04-05 12:42] LABS: Estimated Glomerular Filt Rate > 60 mL/min (>60)
== END ==
PROVIDERS: Radiology Diagnostic Radiology; PCP Internal Medicine; Referring Provider Urology; Visit Provider Urology
DX: E11.29 Type 2 diabetes mellitus with other diabetic kidney complication (principal); N28.1 Cyst of kidney, acquired; R80.9 Proteinuria, unspecified; E78.2 Mixed hyperlipidemia
CPT/HCPCS: 36415; 80048; 80061; 82565; 83036; 84450

== ENCOUNTER → 2024-04-06 09:54 | Outpatient (CLI) | payer MEDICARE, OTHER, SELFPAY ==
[2023-10-22 09:08] VITALS: BMI 27.4
--- NOTE | 2024-04-06 10:27 | DI.CT.S_ITS ---
PROCEDURE: CT ABDOMEN RENAL PROTOCOL INDICATIONS: 83 y/o F w/ a 3.5cm left lower pole Bosniak 2F lesion. TECHNIQUE: Optional 5 mm thick noncontrast images acquired from the diaphragm to the iliac crests. After the administration of intravenous contrast, 5 mm thick images again acquired from the diaphragm to the iliac crests in the arterial and urographic phases. 5 mm thick coronal and sagittal reformats were then acquired. For radiation dose reduction, the following was used: automated exposure control, adjustment of mA and/or kV according to patient size. COMPARISON: [facility], MR, MR AB PANCREATIC/MRCP PROTOCOL, 04/06/2024, 10:33. [facility], CT, CT IVP A/P W/WO, 03/25/2023, 10:58. FINDINGS: Image quality: Diagnostic. Kidneys and Ureters: Multiple left-sided renal cysts are again seen. The cystic lesions appear either simple, or contain thin internal septations. The previously described cystic lesion on the medial margin of the left lower pole is less conspicuous on today's examination, with no significant thickened septation. OTHER: Lower chest: Unremarkable. Liver: No solid mass. Stable simple cyst in the right lobe. Gallbladder: Absent. Biliary ducts: No biliary dilation. Pancreas: Cystic replacement of the pancreas, better characterized on same day MRI. Spleen: Size is within normal limits. Adrenal Glands: No adrenal nodules. Stomach and Bowel: Normal colonic caliber, without significant wall thickening. Peritoneum: No abnormal intraperitoneal fluid. No free air. Ventral Wall: No hernia. Abdominal Nodes: No retroperitoneal or mesenteric adenopathy by size criteria. Vessels: Aorta and inferior vena cava are normal in size. Bones: No aggressive osseous abnormality. IMPRESSION: Less conspicuous appearance of the left lower pole renal cyst, now Bosniak 2. Remaining cysts are Bosniak 1 and 2, requiring no further follow-up with CT. Complete cystic replacement of the pancreas, better characterized on same day MRI. Dictated by: Arnold Goodwin M.D. on 04/06/2024 at 14:52 Approved by: Arnold Goodwin M.D. on 04/06/2024 at 14:55
== END ==
PROVIDERS: PCP Internal Medicine; Referring Provider Urology; Visit Provider Urology
DX: N28.1 Cyst of kidney, acquired (principal); K86.2 Cyst of pancreas; K76.89 Other specified diseases of liver; Z90.49 Acquired absence of other specified parts of digestive tract
CPT/HCPCS: 74170; Q9967

== ENCOUNTER → 2024-04-06 09:56 | Outpatient (CLI) | payer MEDICARE, OTHER, SELFPAY ==
[2023-10-22 09:08] VITALS: BMI 27.4
--- NOTE | 2024-04-06 09:57 | DI.MRI.S_ITS ---
PROCEDURE: MR AB PANCREATIC/MRCP PROTOCOL INDICATIONS: MULTIPLE PANCREATIC CYSTS /?INTERVAL CHANGE/?SOLID TECHNIQUE: Coronal HASTE through the abdomen, axial 2-D FLASH in- and [id number]-[id number], and breath-hold T2 FSE with fat saturation through the biliary system and pancreas. Oblique coronal and axial thin-slice HASTE, radial thick-slab HASTE centered on the extrahepatic bile ducts. Intravenous secretin: Not requested. COMPARISON: [facility], , MR AB PANCREATIC/MRCP PROTOCOL, 08/18/2023, 15:40. FINDINGS: Image quality: Diagnostic. Gallbladder: Absent. Biliary ducts: No biliary dilation. Pancreas: Complete cystic replacement of the pancreas . No suspicious solid mass identified. No suspicious focus of restricted diffusion . OTHER: Lung bases: Unremarkable. Liver: No solid mass. Stable benign cyst in the right hepatic lobe. Spleen: Size is within normal limits. Adrenal Glands: No adrenal nodules. Kidneys and Ureters: No hydronephrosis. No solid mass. No complex renal cystic lesion which requires follow up. Bosniak 1 and 2 cystic lesions of the left kidney are unchanged from prior. Stomach and Bowel: Normal colonic caliber, without significant wall thickening. Peritoneum: No abnormal intraperitoneal fluid. No free air. Ventral Wall: No hernia. Abdominal Nodes: No retroperitoneal or mesenteric adenopathy by size criteria. Vessels: Aorta and inferior vena cava are normal in size. Bones: No aggressive osseous abnormality. IMPRESSION: Similar complete cystic transformation of the pancreas, without solid components. Differential remains VHL, sequela prior inflammation, or indolent cystic neoplasms. Continued surveillance can be considered. Dictated by: Arnold Goodwin M.D. on 04/06/2024 at 15:56 Approved by: Arnold Goodwin M.D. on 04/06/2024 at 16:01
== END ==
PROVIDERS: PCP Internal Medicine; Referring Provider Internal Medicine Gastroenterology; Visit Provider Internal Medicine Gastroenterology
DX: K86.2 Cyst of pancreas (principal); K76.89 Other specified diseases of liver; N28.1 Cyst of kidney, acquired; Z90.49 Acquired absence of other specified parts of digestive tract
CPT/HCPCS: 74170; 74183; A9579; Q9967

== ENCOUNTER → 2024-05-12 14:37 | Outpatient (CLI) | payer MEDICARE, OTHER, SELFPAY ==
[2023-10-22 09:08] VITALS: BMI 27.4
--- NOTE | 2024-05-12 14:38 | DI.MG.S_ITS ---
MM screening mammo BI: 05/12/2024. BI-RADS: 0 CLINICAL: 83-year old female for bilateral screening mammogram. Tyrer-Cuzick lifetime risk of 1.5%. No personal or first-degree family history of breast cancer. The patient had a prior left breast biopsy. PRIOR EXAMS 03/19/2023, 01/02/2022, 12/30/2020, 06/29/2018, 09/25/2017, 07/31/2017, 07/14/2017, 06/26/2017, 05/01/2016, 09/29/2014. MAMMOGRAPHY TECHNIQUE: 2D and 3D (tomosynthesis) digital mammographic views obtained, with additional images as needed for full coverage. Current study was also evaluated with a Computer Aided Detection (CAD) system. DENSITY C. The breasts are heterogeneously dense, which may obscure small masses. MAMMOGRAPHY FINDINGS Right: Lower Inner at 4:00, Anterior depth: There are grouped calcifications that have increased in number. Suspected calcifications needing additional imaging evaluation. Left: No suspicious mass, asymmetry, microcalcification, or other abnormality seen. IMPRESSION: Right (Calcification): Lower Inner at 4:00, Anterior depth * Incomplete - calcification needing additional imaging evaluation. Left * No evidence of malignancy. RECOMMENDATIONS Right: Lower Inner at 4:00, Anterior depth * Further evaluation with diagnostic mammography. OVERALL ASSESSMENT CATEGORY BI-RADS-0: Incomplete - Need Additional Imaging Evaluation. ELECTRONICALLY SIGNED: Mike Schwartz M.D. on 05/12/2024 at 03:05:27 PM Interpreting Station ID: [id number]
== END ==
PROVIDERS: PCP Internal Medicine; Referring Provider Internal Medicine; Visit Provider Internal Medicine
DX: Z12.31 Encounter for screening mammogram for malignant neoplasm of breast (principal); R92.333 Mammographic heterogeneous density, bilateral breasts
CPT/HCPCS: 77063; 77067

== ENCOUNTER → 2024-06-03 08:40 | Outpatient (CLI) | payer MEDICARE, OTHER, SELFPAY ==
[2023-10-22 09:08] VITALS: BMI 27.4
--- NOTE | 2024-06-03 08:56 | DI.MG.S_ITS ---
MM diagnostic mammo unilat RT: 06/03/2024. BI-RADS: 3 CLINICAL: 83-year old female for right diagnostic mammogram that is a recall from screening on 05/12/2024. Tyrer-Cuzick lifetime risk of 1.5%. No personal or first-degree family history of breast cancer. The patient had a prior left breast biopsy. PRIOR EXAMS Mammogram(s): 05/12/2024. 14 Other Exams on 03/19/2023, 01/02/2022, 12/30/2020, 06/29/2018, 09/25/2017, 07/31/2017, 07/14/2017, 06/26/2017, 05/01/2016, 09/29/2014. MAMMOGRAPHY TECHNIQUE: 2D and 3D (tomosynthesis) digital mammographic views obtained, with additional images as needed for full coverage. Current study was also evaluated with a Computer Aided Detection (CAD) system. DENSITY Right: C. The breasts are heterogeneously dense, which may obscure small masses. MAMMOGRAPHY FINDINGS Right: Inner Central, 3 cm from nipple, Anterior depth, measuring 0.6 cm. Previous report: Lower Inner at 4:00: On the present examination, there are probable developing katja-like and adjacent vascular calcifications. IMPRESSION: Right: Inner Central, 3 cm from nipple, Anterior depth, measuring 0.6 cm. Previous report: Lower Inner at 4:00 * Probably Benign. RECOMMENDATIONS Right: Inner Central, 3 cm from nipple, Anterior depth * Six month followup with diagnostic mammography. Mammogram to include magnification views. OVERALL ASSESSMENT CATEGORY BI-RADS-3: Probably Benign. ELECTRONICALLY SIGNED: Rosario Schaeffer M.D. on 06/03/2024 at 09:40:04 AM PT Interpreting Station ID: [id number]
== END ==
LOC: MAMMO 08:41
PROVIDERS: PCP Internal Medicine; Referring Provider Internal Medicine; Visit Provider Internal Medicine
DX: R92.8 Other abnormal and inconclusive findings on diagnostic imaging of breast (principal); R92.333 Mammographic heterogeneous density, bilateral breasts
CPT/HCPCS: 77065; G0279

== ENCOUNTER 2024-09-03 14:35 | Emergency (ER) | payer MEDICARE, OTHER, SELFPAY ==
[2023-10-22 09:08] VITALS: BMI 27.4
[2024-09-03 15:03] VITALS: BP 179/83; PULSE 74; RESP 18; TEMP 36.8; O2SAT 97; BMI 25.8
[2024-09-03 15:11] VITALS: BP 152/82
--- NOTE | 2024-09-03 15:20 | ED.GENADULT ---
HPI - General Adult General Chief complaint: Diabetic Problem Stated complaint: High blood sugar 328 Time Seen by Provider: 09/03/24 15:00 Source: patient Mode of arrival: Ambulatory History of Present Illness HPI narrative: 83-year-old woman with diabetes secondary to 2 episodes of severe pancreatitis. Currently on Jardiance 25 mg daily and metformin a 1000 mg twice a day. In the last year and a half she has lost almost 150 lb and is no longer needing nor using any of her hypertensive medications. She comes in today with concerns that her blood sugars are continuing to increase over the last week her fasting sugars have been in the 225 range and during middle of the day she is getting up over 300 which is causing her significant anxiety. Has not appointment with her primary care physician on September 22. She said they had at 1 point discussed adding Lantus, aside from the measured elevated sugars she has no specific complaints or concerns Related Data Home Medications ?Medication ?Instructions ?Recorded ?Confirmed ascorbic acid (vitamin C) 500 mg 500 mg PO DAILY 09/15/17 06/21/24 capsule cnxaxiywglho-ari-humn-FA-vit K 1 100 ml PO QAM 09/09/18 06/21/24 [Adults Multivitamin] fluocinolone 0.01 % topical 1 applictn topical BID PRN Rash 03/31/19 06/21/24 solution calcium 1 tab PO QAM 12/12/19 06/21/24 padl-U8-jhepzosa-inosit-silicon 300 mg-200 unit-37.5 mg tablet (Bone Density Calcium Plus D) fluticasone propionate 50 1 spray intranasal DAILY PRN 10/22/23 06/21/24 mcg/actuation nasal spray,suspension (Flonase Allergy Relief) loratadine 10 mg tablet 10 mg PO DAILY PRN 10/22/23 06/21/24 ketoconazole 2 % shampoo topical 06/21/24 06/21/24 Previous Rx's ?Medication ?Instructions ?Recorded montelukast 10 mg tablet 10 mg PO DAILY #60 tabs 06/12/22 blood-glucose meter #1 ea 06/13/23 lancets (Accu-Chek Softclix #100 ea 09/17/23 Lancets) Free Style Lite #100 ea 10/02/23 empagliflozin 25 mg tablet 25 mg PO DAILY #90 tabs 01/26/24 (Jardiance) cholestyramine (with sugar) 4 gram 4 g PO BID dumping syndrome #348.6 04/27/24 oral powder grams metformin 500 mg tablet,extended 1,000 mg (2 x 500 mg) PO BID #360 04/27/24 release 24 hr tabs blood sugar diagnostic (FreeStyle #100 ea 07/28/24 Lite Strips) insulin glargine-yfgn 100 unit/mL 10 unit (0.1 mL) SUBCUT BEDTIME 09/03/24 (3 mL) subcutaneous pen #15 mL Allergies Allergy/AdvReac Type Severity Reaction Status Date / Time adhesive (ADHESIVE) Allergy Mild Rash Verified 09/03/24 15:07 bacitracin (BACITRACIN) Allergy Mild itchy red Verified 09/03/24 15:07 rash latex (LATEX) Allergy Mild RASH Verified 09/03/24 15:07 polymyxin B (From NEOSPORIN Allergy Mild itchy red Verified 09/03/24 15:07 ([id number])) rash neomycin (NEOMYCIN) Allergy Unknown CONTACT Verified 09/03/24 15:07 DERMATITIS hydrocodone (HYDROCODONE) AdvReac Unknown HALLUCINATI Verified 09/03/24 15:07 ON narcotics AdvReac Mild Sensitive, Uncoded 09/03/24 15:07 twilight, dreams about sounds she hears Review of Systems Review of Systems Narrative: Pertinent positive and negative findings as per HPI Patient History Medical History Allergic rhinitis due to pollen (04/03/15) Basal cell carcinoma (BCC) Brain TIA Colorectal polyp detected on colonoscopy 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 History of colonic polyps History of hematuria Kidney stones Menopausal syndrome Migraine without status migrainosus, not intractable (04/03/15) Mild intermittent asthma without complication (04/03/15) Mixed hyperlipidemia Obesity (BMI 30.0-34.9) Osteopenia Overweight Papilloma of breast Recurrent UTI Right ovarian cyst Type 2 diabetes mellitus with proteinuria Venous (peripheral) insufficiency Surgical History History of cholecystectomy History of tonsillectomy (1961) History of total hip replacement (2000) History of total hip replacement (2004) Hx of breast biopsy Family History Brother Arthritis Migraines Mother Heart problem Coronary artery disease Hyperlipidemia Hypertension Inflammatory bowel disease Migraines Sister Arthritis Eczema Inflammatory bowel disease Migraines Father Pneumonia BPH (benign prostatic hyperplasia) Coronary artery disease Grandfather Pneumonia Grandmother Parkinson's disease Social History marital status: household members: spouse Smoking Status: Never smoker alcohol intake: never caffeine: Yes Smoking Status: Never smoker alcohol intake frequency: holidays/special occasions only Exam Initial Vital Signs Initial Vital Signs: Vital Signs Temperature 98.3 F 09/03/24 15:03 Pulse Rate 74 09/03/24 15:03 Respiratory Rate 18 09/03/24 15:03 Blood Pressure 179/83 H 09/03/24 15:03 Pulse Oximetry 97 09/03/24 15:03 Oxygen Delivery Method Room Air 09/03/24 15:03 General: Alert appropriate in no acute distress Respiratory: Able to speak in full sentences, no obvious respiratory distress Skin: No obvious rashes, warm and dry Neurologic: Grossly intact no obvious asymmetries or abnormalities Psych: appropriate insight and affect, cooperative Course Orders Ordered: Discontinued Medications Insulin Glargine (Insulin Glargine 100 Unit/Ml 3ml Pen) 10 unit SUBCUT NOW ONE Stop: 09/03/24 15:20 Last Admin: 09/03/24 18:16 Dose: 10 unit Documented By: GILDA Co-signed By: NERI Vital Signs Vital signs: Vital Signs - 8 hr 09/03/24 15:03 09/03/24 15:11 Temperature 98.3 F Pulse Rate 74 Respiratory Rate 18 Blood Pressure 179/83 H 152/82 H Pulse Oximetry 97 Oxygen Delivery Method Room Air Medical Decision Making Lab Data 09/03/24 15:20 Labs: Lab Results 09/03/24 09/03/24 Range/Units 15:20 18:28 Sodium 135 L (137-145) mmol/L Potassium 4.3 (3.4-5.1) mmol/L Chloride 103 (98-107) mmol/L Carbon Dioxide 23 (22-32) mmol/L BUN 28 H (7-17) mg/dL Creatinine 1.08 H (0.52-1.04) mg/dL Estimated GFR 52 L (>60) mL/min BUN/Creatinine Ratio 25.9 H (6-22) Glucose 336 H (70-99) mg/dL POC Whole Bld Glucose 217 H (70-99) mg/dL Hemoglobin A1c 7.8 H (4.0-6.0) % Calcium 9.2 (8.4-10.2) mg/dL Total Bilirubin 0.4 (0.2-1.3) mg/dL AST 21 (14-36) IU/L ALT 17 (<35) IU/L Alkaline Phosphatase 64 (38-126) U/L Total Protein 6.6 (6.3-8.2) g/dL Albumin 4.1 (3.5-5.0) g/dL Globulin 2.5 (1.7-4.1) g/dL Albumin/Globulin Ratio 1.6 (1.0-2.8) MDM Narrative Medical decision making narrative: 83-year-old woman with type 3 C diabetes anxious with blood sugars increasing over the last number of weeks fasting sugars consistently in the 200 range. She is otherwise asymptomatic with this. Currently is on Jardiance and metformin, is not a candidate for GLP 1 inhibitor secondary to her prior episodes of pancreatitis. We discussed beginning Lantus insulin she is willing to give this a try. When she has her appointment with Dr. Diaz on September 23 she would like to switch to ?the insulin patch?. She is referring to continue his insulin monitor and infusion. We will leave that discussion to Dr. Diaz We will go ahead and check chemistry panel today along with a hemoglobin A1c for baseline numbers. She is given a Lantus pen and instructed on use and has given herself 10 units of Lantus in the emergency department. We will recommend 10 units nightly to continue with her excellent follow up with regular blood sugar checks and knowing she has an appointment with her primary care doctor on September 23. Discharge Plan Departure Patient Disposition: Home Clinical Impression: Hyperglycemia Activity Restrictions/Additional Instructions: Thank you for taking such excellent care in checking your blood sugars And I agree, the gradual increase is concerning and unfortunately, I believe you are going to need low doses of insulin at this point. Your hemoglobin A1c has increased from 7-7.8 over the last 5 months which is consistent with the blood sugar changes that you are also noticing. There was no sign of acute diabetic complication that would require further workup or hospitalization I am going to suggest that you start Lantus insulin, this is a long-acting insulin that gives you a basal level of insulin throughout the day, to help bring down your overall blood sugars. By it comes in a pin, we have shown you how to use the pen, I have given you prescriptions to picker tender helper additional dosing. I am going to suggest you begin with 10 units at bedtime. If you are morning sugars are consistently 90 or below, I would stop the Lantus. If you are morning sugars are consistently over 200 I would increase the Lantus to 12. If your sugars are between 90 and 200, continue with the 10 units nightly. Please keep your appointment with Dr. Diaz in mid September and review all of these numbers. Together you can decide if you want to continue this form of inflow or change to alternatives. If you find that you are getting worse or develop any new symptoms, please feel free to return to the emergency department for further evaluation. Prescriptions: New insulin glargine-yfgn 100 unit/mL (3 mL) insulin pen 10 unit SUBCUT BEDTIME Qty: 15 3RF No Action (DME) blood-glucose meter Kit See Rx Instructions .Route Qty: 1 0RF Rx Instructions: As directed (DME) lancets [Accu-Chek Softclix Lancets] Misc See Rx Instructions .Route Qty: 100 3RF Rx Instructions: As directed to check blood glucose twice daily before meals (DME) Free Style Lite See Rx Instructions .Route .MEDSUPPLY Qty: 100 3RF Rx Instructions: As directed. Twice daily before meal. Jardiance 25 mg tablet 25 mg PO DAILY Qty: 90 3RF (DME) FreeStyle Lite Strips Strip See Rx Instructions .Route Qty: 100 2RF Rx Instructions: As directed to test blood sugar twice a day fluocinolone 0.01 % solution 1 applictn TOP BID PRN (Reason: Rash) montelukast 10 mg tablet 10 mg PO DAILY Qty: 60 3RF metformin 500 mg tablet extended release 24 hr 1,000 mg PO BID Qty: 360 3RF cholestyramine (with sugar) 4 gram powder 4 g PO BID Qty: 348.6 1RF Rx Instructions: administer w/meal; avoid other meds within 1hr before or 4-6hr after dose kbxgrduiijbg-vdt-bmnv-FA-vit K [Adults Multivitamin] 1 100 ml PO QAM loratadine 10 mg tablet 10 mg PO DAILY PRN fluticasone propionate [Flonase Allergy Relief] 50 mcg/actuation spray,suspension 1 spray intranasal DAILY PRN Rx Instructions: administer into each nostril ketoconazole 2 % shampoo topical ascorbic acid (vitamin C) 500 mg capsule 500 mg PO DAILY Bone Density Calcium Plus D 300-200-37.5 mg-unit-mg Tablet 1 tab PO QAM Referrals: Rafat Diaz MD [Primary Care Provider, Internal Medicine] Stand Alone Forms: Patient Portal/API
[2024-09-03 15:49] LABS: Alanine Aminotransferase 17 IU/L (<35); Albumin 4.1 g/dL (3.5-5.0); Albumin Globulin Ratio 1.6 (1.0-2.8); Alkaline Phosphatase 64 U/L (38-126); Aspartate Aminotransferase 21 IU/L (14-36); BUN Creatinine Ratio 25.9 (6-22); Bilirubin Total 0.4 mg/dL (0.2-1.3); Blood Urea Nitrogen 28 mg/dL (7-17); Calcium 9.2 mg/dL (8.4-10.2); Carbon Dioxide 23 mmol/L (22-32); Chloride 103 mmol/L (98-107); Estimated Glomerular Filt Rate 52 mL/min (>60); Globulin 2.5 g/dL (1.7-4.1); Glucose 336 mg/dL (70-99); HEMOLYSIS < 15 (0-50); Potassium 4.3 mmol/L (3.4-5.1); Sodium 135 mmol/L (137-145); Total Protein 6.6 g/dL (6.3-8.2)
[2024-09-03 15:54] LABS: Hemoglobin A1C% w Est Avg Glu 7.8 % (4.0-6.0)
[2024-09-03] MEDS: INSULIN GLARGINE 100 UNIT/ML 3ML PEN 10 UNIT SUBCUT (18:16)
[2024-09-03 18:33] LABS: POC Glucose 217 mg/dL (70-99)
[2024-09-03 18:50] VITALS: BP 162/93; PULSE 97; RESP 14; O2SAT 97
--- NOTE | 2024-09-03 18:54 | PC.NURSE ---
patient given insulin and diabetic education and was given plenty of time to answer questions. She was instructed on how to administer her insulin and was walked through the process of checking her glucose and sefl injecting. She demonstrated an effective amount of knowledge to self admin her first dose in the ER under the direct supervision of the RN. She was educated on signs and symptoms of hypo/hyperglycemia
== END 2024-09-03 18:57 | disposition home or self-care (01) ==
PROVIDERS: Emergency Provider Emergency Medicine; PCP Internal Medicine
DX: E11.65 Type 2 diabetes mellitus with hyperglycemia (principal); Z79.84 Long term (current) use of oral hypoglycemic drugs
CPT/HCPCS: 80053; 82962; 83036; 96372; 99281; 99284

== ENCOUNTER → 2024-10-05 10:42 | Outpatient (CLI) | payer MEDICARE, OTHER, SELFPAY ==
[2023-10-22 09:08] VITALS: BMI 27.4
--- NOTE | 2024-10-05 10:44 | DI.MRI.S_ITS ---
PROCEDURE: MR AB PANCREATIC/MRCP PROTOCOL INDICATIONS: PANCREATIC CYST TECHNIQUE: Coronal HASTE through the abdomen, axial 2-D FLASH in- and kmi-of-medct, and breath-hold T2 FSE with fat saturation through the biliary system and pancreas. Oblique coronal and axial thin-slice HASTE, radial thick-slab HASTE centered on the extrahepatic bile ducts. Pre and post IV contrast vibe in the axial plane. Postcontrast coronal vibe. COMPARISON: [facility], CT, CT ABDOMEN RENAL PROTOCOL, 04/06/2024, 9:58. [facility], MR, MR AB PANCREATIC/MRCP PROTOCOL, 04/06/2024, 10:33. FINDINGS: Image quality: Diagnostic. Gallbladder: Absent. Biliary ducts: No biliary dilation. Pancreas: Diffuse cystic replacement of the pancreas. Majority of the cysts are small. No restricted diffusion. No solid mass identified. OTHER: Lung bases: Unremarkable. Liver: No solid mass. Hepatic cyst measuring 2.3 cm. Spleen: Size is within normal limits. Adrenal Glands: No adrenal nodules. Kidneys and Ureters: No hydronephrosis. No solid mass. Cystic replacement of the left kidney. No right renal cysts. Stomach and Bowel: No dilated loops of bowel. Peritoneum: No abnormal intraperitoneal fluid. Ventral Wall: No hernia. Abdominal Nodes: No retroperitoneal or mesenteric adenopathy by size criteria. Vessels: Aorta and inferior vena cava are normal in size. Bones: No aggressive osseous abnormality. IMPRESSION: 1. Diffuse cystic replacement of the pancreatic parenchyma. No mass or suspicious enhancement seen. 2. Multiple cysts in the left kidney. A hepatic cysts. 3. No biliary ductal dilatation. Dictated by: Suman Díaz M.D. on 10/05/2024 at 15:53 Approved by: Suman Díaz M.D. on 10/05/2024 at 16:04
== END ==
PROVIDERS: PCP Internal Medicine; Referring Provider Internal Medicine; Visit Provider Internal Medicine Gastroenterology
DX: K86.2 Cyst of pancreas (principal); N28.1 Cyst of kidney, acquired; K76.89 Other specified diseases of liver; R93.3 Abnormal findings on diagnostic imaging of other parts of digestive tract; Z90.49 Acquired absence of other specified parts of digestive tract
CPT/HCPCS: 74183; A9579

== ENCOUNTER → 2024-10-22 13:37 | Outpatient (CLI) | payer MEDICARE, OTHER, SELFPAY ==
[2023-10-22 09:08] VITALS: BMI 27.4
--- NOTE | 2024-11-24 12:51 | DIAB.FU ---
Follow-up Diabetes Education Assessment Name: Berta Perez Date: 10/22/24 Time: 2-3p Dx: Type II Diabetes Berta presents for follow-up Dm visit. Reports waking up one night feeling unwell in the night and Bg was 77mg/dl, felt jittery. Consumed vinegar and honey and Bg increased to 123mg/dl. Wore CGM sample, but no interested in ongoing use. Reports being conscious of CHO intake at meals and choosing nuts for snack. Reported meals 15-30g CHO and pairing with protein. Increased basal insulin to 14u. Anthropometrics: Ht: 66 Wt: 168# reported 10/2024 161-165# 09/2024 179# 10/2023 194# 07/2023 Physical Activity: Not discussed Self-Monitoring Blood Glucose: Checks FBG and much improved FBG since last visit. CGM data does show some elevated BG with excessive time >180 and 250mg/dl, which may have improved since increasing basal insulin. TIR: 7% very high 37% high 56% in range 0% low or very low avmg/dl GMI: 7.7% std dev: 44mg/dl variance; 24.3% Today: Date Pre Post Pre Post Pre Post HS 10/16 104 10/17 123 10/18 122 10/19 113 10/20 120 10/21 92 10/22 88 Last visit: Date Pre Post Pre Post Pre Post HS 09/30 141 151 196 10/01 144 204 203 10/02 10/03 194 198 10/04 226 166 150 10/05 160 201 10/06 133 Diabetes Medications: 25mg Jardiance 14u Glargine-- rx for 15u Pertinent Labs: HgA1c: 12% 06/2023 6.3%10/2023 7.8% 08/2024 Past Medical History: (Last Reviewed 08/12/23 @ 12:32 by Cleve Quiros MD) Allergic rhinitis due to pollen (04/03/15) Basal cell carcinoma (BCC) Brain TIA Colorectal polyp detected on colonoscopy 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 Provided appropriate educational handouts. Discussed the following topics: BG review and trends s/s of hypoglycemia and Rule of 15 for tx of lows Treatment of low symptoms vs actual lows Insulin adjustment if she starts having low BG Goals for TIR Increase basal insulin to 14-15u based on FBG- new Goals: Wear CGM sample- met Increase basal insulin to 14-15u based on FBG- met Implement Rule of 15 for BG <70mg/dl- new Reduce basal insulin by 2u if BG <70mg/dl overnight- new Follow-up: ESTELLE [facility]INA follow-up prn per pt req Lynne Vaca RDN, [facility] Certified [facility] and [employer] P: [phone] Thank you for this referral
== END ==
PROVIDERS: PCP Internal Medicine; Referring Provider Internal Medicine
DX: E11.9 Type 2 diabetes mellitus without complications (principal); Z71.3 Dietary counseling and surveillance; Z79.4 Long term (current) use of insulin; Z79.84 Long term (current) use of oral hypoglycemic drugs
CPT/HCPCS: G0108

== ENCOUNTER → 2024-12-06 10:01 | Outpatient (CLI) | payer MEDICARE, OTHER, SELFPAY ==
[2023-10-22 09:08] VITALS: BMI 27.4
--- NOTE | 2024-12-06 10:03 | DI.MG.S_ITS ---
MM diagnostic mammo unilat RT: 12/06/2024. BI-RADS: 4 CLINICAL: 84-year old female for right diagnostic mammogram that is a follow-up to diagnostic mammogram on 06/03/2024. Tyrer-Cuzick lifetime risk of 1.1%. No personal or first-degree family history of breast cancer. The patient had a prior left breast biopsy. PRIOR EXAMS: 06/03/2024, 05/12/2024, 03/19/2023, 01/02/2022, 12/30/2020. MAMMOGRAPHY TECHNIQUE: 2D and 3D (tomosynthesis) digital mammographic views obtained, with additional images as needed for full coverage. Current study was also evaluated with a Computer Aided Detection (CAD) system. DENSITY Right: C. The breast is heterogeneously dense, which may obscure small masses. MAMMOGRAPHY FINDINGS Right: Inner at 3:00, 3 cm from nipple, Anterior depth, measuring 1cm: There are grouped fine linear calcifications. Compared to the prior mammogram, these calcifications appear more prominent. IMPRESSION: Right (Calcification): Inner at 3:00, 3 cm from nipple, Anterior depth, measuring 1cm * Suspicious findings with likelihood of malignancy. RECOMMENDATIONS Right: Inner at 3:00, 3 cm from nipple, Anterior depth * Stereotactic-guided biopsy for further evaluation. COMMENTS: Findings and recommendations were conveyed to the patient during today's evaluation by Dr. Askew. OVERALL ASSESSMENT CATEGORY BI-RADS-4: Suspicious. ELECTRONICALLY SIGNED: Rosario Schaeffer M.D. on 12/06/2024 at 10:49:58 AM PT Interpreting Station ID: [id number]
[2024-12-06 11:02] LABS: Hematocrit 44.6 % (36-46); Hemoglobin 15.0 g/dL (12.0-16.0); Mean Corpuscular HGB Conc 33.8 % (30-36); Mean Corpuscular Hemoglobin 27.6 PG (26-34); Mean Corpuscular Volume 81.8 fL (80-100); Platelet Count 228 X10^3/uL (150-400)
[2024-12-06 11:10] LABS: Hemoglobin A1C% w Est Avg Glu 7.1 % (4.0-6.0)
[2024-12-06 11:33] LABS: Alanine Aminotransferase 17 IU/L (<35); Albumin 4.1 g/dL (3.5-5.0); Albumin Globulin Ratio 1.6 (1.0-2.8); Alkaline Phosphatase 82 U/L (38-126); Blood Urea Nitrogen 28 mg/dL (7-17); Calcium 9.5 mg/dL (8.4-10.2); Carbon Dioxide 25 mmol/L (22-32); Chloride 105 mmol/L (98-107); Estimated Glomerular Filt Rate 52 mL/min (>60); Globulin 2.6 g/dL (1.7-4.1); Glucose 133 mg/dL (70-99); HEMOLYSIS < 15 (0-50); Potassium 4.4 mmol/L (3.4-5.1); Sodium 140 mmol/L (137-145); Total Protein 6.7 g/dL (6.3-8.2)
[2024-12-06 12:30] LABS: Microalbumi Creatinin Ratio Ur 14.0 ug/mg CR (<30)
== END ==
PROVIDERS: PCP Internal Medicine; Referring Provider Internal Medicine; Visit Provider Internal Medicine
DX: R92.8 Other abnormal and inconclusive findings on diagnostic imaging of breast (principal); E11.69 Type 2 diabetes mellitus with other specified complication; K86.3 Pseudocyst of pancreas; E78.5 Hyperlipidemia, unspecified; R92.331 Mammographic heterogeneous density, right breast
CPT/HCPCS: 36415; 77065; 80053; 82043; 82570; 83036; 85027; G0279

== ENCOUNTER → 2025-01-13 10:15 | Outpatient (CLI) | payer MEDICARE, OTHER, SELFPAY ==
[2023-10-22 09:08] VITALS: BMI 27.4
--- NOTE | 2025-01-13 10:17 | DI.RAD.S_ITS ---
PROCEDURE: XR DEXA AXIAL SKELETON
== END ==
PROVIDERS: PCP Internal Medicine; Referring Provider Internal Medicine; Visit Provider Internal Medicine Hematology & Oncology
DX: M81.0 Age-related osteoporosis without current pathological fracture (principal)
CPT/HCPCS: 77080

== ENCOUNTER → 2025-01-14 08:11 | Outpatient (CLI) | payer MEDICARE, OTHER, SELFPAY ==
[2023-10-22 09:08] VITALS: BMI 27.4
--- NOTE | 2025-01-14 08:12 | DI.MRI.S_ITS ---
MR breast BI wo/w con: 01/14/2025. BI-RADS: 6
== END ==
LOC: MRI 08:11
PROVIDERS: PCP Internal Medicine; Referring Provider Student in an Organized Health Care Education/Training Program; Visit Provider Student in an Organized Health Care Education/Training Program
DX: D05.11 Intraductal carcinoma in situ of right breast (principal)
CPT/HCPCS: 77049; A9579